=== PATIENT | female | born 1935 | race Caucasian/White ===

== ENCOUNTER 2016-12-07 14:05 | Inpatient (IN) | payer BC, OTHER ==
[~2016-12-07] VITALS: Ht 162.6 cm; Wt 85.5 kg
[2016-12-07] MEDS ORDERED: SODIUM CHLORIDE 0.9% 1000ML 1,000 ML IV STA (14:29)
[2016-12-07] MEDS ORDERED: DILTIAZEM BOLUS / DRIP IV STA (14:29)
[2016-12-07] MEDS ORDERED: DILTIAZEM HCL 5 MG/ML 5 ML VIAL IV STA ×2 (14:29→15:07)
[2016-12-07] MEDS ORDERED: DILTIAZEM HCL INJ 125 MG in DEXTROSE 5% 100ML IV PRN ×2 (14:45→19:15)
[2016-12-07 14:47] LABS: BASO % 0.4 %; BASO ABS # 0.03 K/uL (0-0.2); COMPLETE YES; EOS % 0.7 %; HEMATOCRIT 47.1 % (37-47); IG% 0.4 %; LYMPH % 21.3 %; MEAN CELL VOLUME 93.5 fL (80-100); MEAN CORPUSCULAR HEMOGLOBIN 32.3 pg (25-34); MEAN CORPUSCULAR HGB CONC 34.6 g/dl (32-36); MEAN PLATELET VOLUME 10.7 fL (7.4-10.4); MONO % 6.6 %; NEUT % 70.6 %; PLATELET COUNT 250 K/uL (130-400); RED BLOOD COUNT 5.04 M/uL (4.2-5.4); WHITE BLOOD COUNT 8.44 K/uL (4.8-10.8)
[2016-12-07 14:48] LABS: PARTIAL THROMBOPLASTIN RATIO 1.1; PROTHROMBIN TIME (PATIENT) 10.9 SECONDS (9.0-12.0)
--- NOTE | 2016-12-07 14:52 | DIAGNOSTIC IMAGING REPORT ---
CHEST ONE VIEW PORTABLE CLINICAL HISTORY: Shortness of breath, weakness and atrial fibrillation. COMPARISON STUDY: No previous studies for comparison. FINDINGS: Lung volumes are normal. There is no consolidation. Pulmonary vascularity is normal. No pneumothorax or pleural effusion is present. Cardiomediastinal silhouette is unremarkable. Left lower lung opacity favors atelectasis. IMPRESSION: No acute cardiopulmonary findings. Electronically signed by: Corky Noble M.D. 12/07/2016 2:51 PM Dictated Date/Time: 12/07/2016 2:50 PM
[2016-12-07 15:03] LABS: ALT/SGPT 23 U/L (12-78); AST/SGOT 19 U/L (15-37); BLOOD UREA NITROGEN 14 mg/dl (7-18); BUN/CREATININE RATIO 15.6 (10-20); CALCIUM 9.5 mg/dl (8.5-10.1); CARBON DIOXIDE 28 mmol/L (21-32); CHLORIDE 100 mmol/L (98-107); GLUCOSE 161 mg/dl (70-99); MAGNESIUM 2.1 mg/dl (1.8-2.4); POTASSIUM 3.5 mmol/L (3.5-5.1); SODIUM 134 mmol/L (136-145)
[2016-12-07 15:14] LABS: ALKALINE PHOSPHATASE 114 U/L (45-117); CKMB/CK RATIO 2.3 (0-3.0)
[2016-12-07] MEDS ORDERED: SIMV5TAB2 PO (15:35)
[2016-12-07] MEDS ORDERED: BP MEDS (15:35)
[2016-12-07] MEDS ORDERED: LPR100 PO (15:37)
[2016-12-07 16:09] LABS: URINE APPEARANCE CLEAR (CLEAR); URINE BILIRUBIN NEG (NEG); URINE COLOR YELLOW; URINE NITRITE NEG (NEG); URINE SPECIFIC GRAVITY 1.008 (1.000-1.030); UROBILINOGEN NEG (NEG)
[2016-12-07 16:16] LABS: MANUAL MICROSCOPIC REQUIRED? NO; REVIEW REQ? NO
--- NOTE | 2016-12-07 17:27 | EMERGENCY ROOM VISIT NOTE ---
History Report prepared by Dileep: Liliana Pritchard Under the Supervision of: Dr. Siva Moreno M.D. First contact with patient: 14:19 Chief Complaint: SHORTNESS OF BREATH Stated Complaint: SOB AFIB History of Present Illness The patient is a 81 year old female who presents to the Emergency Room with complaints of an episode of shortness of breath starting a few hours ago. 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 She notes that when she got home. A. fib with rapid ventricular response at [address] depressions and there is actually no prior for comparison, she started to feel short of breath. The patient complains of feeling fatigued, having diarrhea and having dull pain in her left arm. She states that she currently feels nervous inside. The patient denies feeling her heart flutter or any chest pain. The patient notes that she sees Dr. Cruz for one of her valves not working properly in her heart. Pt denies LOC, headache, fevers, chills, diaphoresis, visual changes, neck pain, nausea, vomiting, abdominal pain, back pain, melena, hematochezia, urinary symptoms, numbness, weakness, lymphadenopathy, rash, or other complaints. Source of History: patient Onset: a few hours ago Position: chest Timing: other (episode) Associated Symptoms: + diarrhea, + fatigue Note: The patient complains of left arm pain and feeling nervous. Review of Systems See HPI for pertinent positives and negatives. A total of ten systems were reviewed and were otherwise negative. Past Medical & Surgical Medical Problems: (1) thickened candace valve Family History No pertinent family history Social History Smoking Status: Never Smoker Marital Status: Occupation Status: retired Current/Historical Medications Scheduled Simvastatin (Zocor), 5 MG PO QPM Miscellaneous Medications [Bp Meds] Allergies Coded Allergies: NO KNOWN DRUG ALLERGIES (Verified Allergy, Unknown, `, 12/07/16) Physical Exam Vital Signs Date Time Temp Pulse Resp B/P Pulse Ox O2 Delivery O2 Flow Rate FiO2 12/07/16 16:13 115 20 153/95 96 Room Air 12/07/16 15:18 100 20 167/81 97 12/07/16 14:40 94 Room Air 12/07/16 14:40 95 Room Air 12/07/16 14:36 98 Room Air 12/07/16 14:27 180 5/14/17 14:11 36.4 169 20 131/74 96 Room Air Physical Exam GENERAL: Awake, alert, uncomfortable appearing, in no distress HENT: Normocephalic, atraumatic. Oropharynx unremarkable. EYES: Normal conjunctiva. Sclera non-icteric. NECK: Supple. No nuchal rigidity. FROM. No JVD. RESPIRATORY: Clear to auscultation. CARDIAC: irregular rate, tachycardic rhythm. Extremities warm and well perfused. Pulses equal. ABDOMEN: Soft, non-distended. Minimal upper abdominal tenderness to palpation. No rebound or guarding. No masses. RECTAL: Deferred. MUSCULOSKELETAL: Chest examination reveals no tenderness. The back is symmetrical on inspection without obvious abnormality. There is no CVA tenderness to palpation. No joint edema. LOWER EXTREMITIES: Calves are equal size bilaterally and non-tender. +1 edema. No discoloration. NEURO: Normal sensorium. No sensory or motor deficits noted. SKIN: No rash or jaundice noted. Medical Decision & Procedures ER Provider Diagnostic Interpretation: Radiology results as stated below per my review and radiologist interpretation: CHEST ONE VIEW PORTABLE CLINICAL HISTORY: Shortness of breath, weakness and atrial fibrillation. COMPARISON STUDY: No previous studies for comparison. FINDINGS: Lung volumes are normal. There is no consolidation. Pulmonary vascularity is normal. No pneumothorax or pleural effusion is present. Cardiomediastinal silhouette is unremarkable. Left lower lung opacity favors atelectasis. IMPRESSION: No acute cardiopulmonary findings. Electronically signed by: Corky Noble M.D. 12/07/2016 2:51 PM Dictated Date/Time: 12/07/2016 2:50 PM Laboratory Results 12/07/16 14:25 Red Blood Count 5.04, Mean Corpuscular Volume 93.5, Mean Corpuscular Hemoglobin 32.3, Mean Corpuscular Hemoglobin Concent 34.6, Mean Platelet Volume 10.7, Neutrophils (%) (Auto) 70.6, Lymphocytes (%) (Auto) 21.3, Monocytes (%) (Auto) 6.6, Eosinophils (%) (Auto) 0.7, Basophils (%) (Auto) 0.4, Neutrophils # (Auto) 5.96, Lymphocytes # (Auto) 1.80, Monocytes # (Auto) 0.56, Eosinophils # (Auto) 0.06, Basophils # (Auto) 0.03 12/07/16 14:25 Test 12/07/16 14:25 12/07/16 15:51 White Blood Count 8.44 K/uL (4.8-10.8) Red Blood Count 5.04 M/uL (4.2-5.4) Hemoglobin 16.3 g/dL (12.0-16.0) Hematocrit 47.1 % (37-47) Mean Corpuscular Volume 93.5 fL (80-100) Mean Corpuscular Hemoglobin 32.3 pg (25-34) Mean Corpuscular Hemoglobin Concent 34.6 g/dl (32-36) Platelet Count 250 K/uL (130-400) Mean Platelet Volume 10.7 fL (7.4-10.4) Neutrophils (%) (Auto) 70.6 % Lymphocytes (%) (Auto) 21.3 % Monocytes (%) (Auto) 6.6 % Eosinophils (%) (Auto) 0.7 % Basophils (%) (Auto) 0.4 % Neutrophils # (Auto) 5.96 K/uL (1.4-6.5) Lymphocytes # (Auto) 1.80 K/uL (1.2-3.4) Monocytes # (Auto) 0.56 K/uL (0.11-0.59) Eosinophils # (Auto) 0.06 K/uL (0-0.5) Basophils # (Auto) 0.03 K/uL (0-0.2) RDW Standard Deviation 47.6 fL (36.4-46.3) RDW Coefficient of Variation 14.0 % (11.5-14.5) Immature Granulocyte % (Auto) 0.4 % Immature Granulocyte # (Auto) 0.03 K/uL (0.00-0.02) Prothrombin Time 10.9 SECONDS (9.0-12.0) Prothromb Time International Ratio 1.0 (0.9-1.1) Activated Partial Thromboplast Time 29.2 SECONDS (21.0-31.0) Partial Thromboplastin Ratio 1.1 Anion Gap 6.0 mmol/L (3-11) Est Creatinine Clear Calc Drug Dose 54.1 ml/min Estimated GFR () 70.5 Estimated GFR (Non- 60.8 BUN/Creatinine Ratio 15.6 (10-20) Calcium Level 9.5 mg/dl (8.5-10.1) Magnesium Level 2.1 mg/dl (1.8-2.4) Total Bilirubin 0.5 mg/dl (0.2-1) Direct Bilirubin 0.1 mg/dl (0-0.2) Aspartate Amino Transf (AST/SGOT) 19 U/L (15-37) Alanine Aminotransferase (ALT/SGPT) 23 U/L (12-78) Alkaline Phosphatase 114 U/L (45-117) Total Creatine Kinase 39 U/L (26-192) Creatine Kinase MB 0.9 ng/ml (0.5-3.6) Creatine Kinase MB Ratio 2.3 (0-3.0) Troponin I < 0.015 ng/ml (0-0.045) Total Protein 7.6 gm/dl (6.4-8.2) Albumin 3.7 gm/dl (3.4-5.0) Thyroid Stimulating Hormone (TSH) 2.040 uIu/ml (0.300-4.500) Urine Color YELLOW Urine Appearance CLEAR (CLEAR) Urine pH 7.0 (4.5-7.5) Urine Specific [place] 1.008 (1.000-1.030) Urine Protein NEG (NEG) Urine Glucose (UA) NEG (NEG) Urine Ketones 1+ (NEG) Urine Occult Blood NEG (NEG) Urine Nitrite NEG (NEG) Urine Bilirubin NEG (NEG) Urine Urobilinogen NEG (NEG) Urine Leukocyte Esterase NEG (NEG) Laboratory results reviewed by me Medications Administered Medications (Trade) Dose Ordered Sig/Tasia Route Start Time Stop Time Status Last Admin Dose Admin Sodium Chloride (Nss 1000ml) 1,000 ml @ 125 mls/hr Q8H STAT IV 12/07/16 14:29 12/07/16 22:28 12/07/16 14:29 125 MLS/HR Diltiazem HCl 10 mg 10 mg NOW STAT IV 12/07/16 14:29 12/07/16 14:31 DC 12/07/16 14:47 10 MG Diltiazem HCl/ Dextrose (Cardizem Inj/D5 100ml) 125 ml @ 5 mls/hr Q24H PRN IV 12/07/16 14:45 01/06/17 14:44 12/07/16 14:50 5 MLS/HR Diltiazem HCl (Cardizem Inj) 10 mg NOW STAT IV 12/07/16 15:07 12/07/16 15:08 DC 12/07/16 15:14 10 MG ECG Indication: tachycardia Rate (beats per minute): 166 Rhythm: atrial fibrillation Findings: ST depression (Lateral), other (rapid ventricular response) Comparison ECG Date: no prior available ED Course 1425: The patient was evaluated in room A3. A complete history and physical exam was performed. 1429: Ordered Cardizem Inj 10 mg IV, Cardizem Bolus/Drip 1 ea IV, NSS 1000 ml @ 125 mls/hr. 1445: Ordered Diltiazem HCl 125 mg/Dextrose 125 ml @5 mls/hr Protocol PRN IV Titration. 1507: Ordered Cardizem Inj 10 mg IV. 1556: I reevaluated the patient and she is doing okay. I informed her of the future treatment plan. She verbalized agreement and understanding. 1558: Discussed the patient's case Dr. Andrews. The patient will be evaluated for further treatment and disposition. Medical Decision Triage Nursing notes reviewed. The patient's presentation and history were concerning for new onset atrial fibrillation. Etiologies such as cardiac dysrhythmia, ectopy,electrolyte abnormality, thyroid dysfunction, pulmonary embolism, infection, gastrointestinal, as well as others were entertained. The patient was evaluated. She was found to be in rapid atrial fibrillation. She has some lateral ST depression on ECG. Rate control was chosen with IV Cardizem. She received 10 mg bolus and then an infusion was started. This helped but then she started to get fast again. She was given a second 10 mg bolus. Blood work and imaging was sent. CBC, chemistry panel, cardiac markers were unremarkable. The patient had rate control achieved after the second dose of Cardizem and felt much better with this. Consultation was made with internal medicine. Internal medicine will dictate anticoagulation at this point. The patient had taken aspirin prior to arrival. The chart was completed utilizing [employer] voice recognition software. Grammatical errors, random word insertions, pronoun errors, and incomplete sentences are an occasional consequence of this system due to software limitations, ambient noise, and hardware issues. Any formal questions or concerns about the content, text, or information contained within the body of this dictation should be directly addressed to the physician for clarification. Consults Time Called: [id number] Consulting Physician: Dr. Andrews Returned Call: [phone] Discussed the patient's case Dr. Andrews. The patient will be evaluated for further treatment and disposition. Impression Primary Impression: Atrial fibrillation with rapid ventricular response Critical Care I have personally spent greater than 30 minutes of critical care time in the direct management of this patient. This includes bedside care, interpretation of diagnostic studies, and testing, discussion with consultants, patient, and family members, and other required patient management activities. This 30 minutes is in excess of all separately billable procedures. Scribe Attestation The scribe's documentation has been prepared under my direction and personally reviewed by me in its entirety. I confirm that the note above accurately reflects all work, treatment, procedures, and medical decision making performed by me. Departure Information Dispostion Being Evaluated By Hospitalist Berhane Lira M.D. (PCP) Patient Instructions My [facility]
[2016-12-07] MEDS ORDERED: ALUMINUM/MAGNESIUM/SIMETH (MAALOX MAX) 30 ML UDC PO PRN (17:30)
[2016-12-07] MEDS ORDERED: ONDANSETRON INJ 2 MG/ML 2 ML VIAL IV PRN (17:30)
[2016-12-07] MEDS ORDERED: POLYETHYLENE (MIRALAX) 17 GM PACK PO PRN (17:30)
[2016-12-07] MEDS ORDERED: DILTIAZEM BOLUS / DRIP IV SCH (17:30)
[2016-12-07] MEDS ORDERED: ZOLPIDEM TARTRATE 5 MG TAB PO PRN (17:30)
[2016-12-07] MEDS ORDERED: MAGNESIUM HYDROXIDE SUSP 30 ML UDC PO PRN (17:30)
[2016-12-07] MEDS ORDERED: ACETAMINOPHEN 325 MG TAB PO PRN (17:30)
--- NOTE | 2016-12-07 18:52 | HISTORY & PHYSICAL EXAMINATION ---
DATE OF ADMISSION: 12/07/2016 This is a level 3 inpatient admission, 35 minutes. CHIEF COMPLAINT: Shortness of breath. HISTORY OF PRESENT ILLNESS: A 81-year-old white female with history of asthma, thickened mitral valve, comes to the hospital Emergency Department because of the above chief complaint. The patient reports has a feeling shortness of breath started a few hours ago. She states she went to the [place]lam and was doing fine and then she went home from the islam, she noticed more shortness of breath. In the Emergency Room, patient was found to have aFib with rapid ventricular response, heart rate up to 166 beats per minutes, associated with lateral leads ST depressions in the Emergency Room documented. The patient also reported feeling fatigue, have some diarrhea, not eating well, had some bowel pain in the left arm. She was feeling nervous when arriving to the Emergency Room. After arriving to the ED, the patient got a 10 mg Cardizem bolus x2 sets and then started 5 mg IV of Cardizem drip, 5 mg per hour Cardizem drips. When I interviewed with the patient, she was awake, alert and orientated, heart rate at 90, heart rate is controlled, looks tired but conversational. Denied fever or chills. Denied chest pain, palpitations. Denied lower extremity swelling. Denied cough, sputum; shortness of breath is better. No wheezing. No nausea, vomiting, abdominal pain, diarrhea, or constipation. Denied dysuria, urgency and frequencies. Denied facial droop, slurry speeches or weakness. Denies skin rashes. PAST MEDICAL HISTORY: Include asthma; thickened mitral valve, follows up with Dr. Cruz. SOCIAL HISTORY: Denied tobacco abuse disorder, denied alcohol abuse disorder, denied illicit drug abuse. FAMILY HISTORY: Noncontributory. CURRENT MEDICATIONS: Include Zocor 5 mg p.o. q.a.m. Some other medicines possibly include blood pressure medicine. ALLERGIES: No known drug allergies. PHYSICAL EXAMINATION: VITAL SIGNS: Temperature is 36.4; pulse initially was 160 and currently is 80, respiratory rate was 20, blood pressure was 131/74, pulse ox was 96% in room air. GENERAL: The patient is a white female, awake, alert and orientated, conversational, follows all commands. HEAD: Normocephalic. EYES: Pupils equal, round responds to light. EARS: Ear was normal. NOSE: Normal. NECK: Supple. Thyroid - no enlargement. Trachea midline. HEART: irregular irregular S1, S2. Heart rate is 80 beats per minutes now. No murmur, no gallop. ABDOMEN: Soft, nontender. Bowel sounds positive. GENITOURINARY AND RECTAL: Deferred. MUSCULOSKELETAL SYSTEMS: No any tenderness. EXTREMITIES: Pulse was symmetric and positive. No edema. NEUROLOGICAL EVALUATION: Cranial nerve through XII was intact. There were no local deficits. SKIN: Has no rashes. LABORATORY STUDIES: WBC 8.8, hemoglobin 16, platelets 250. PT/INR 10/1. Sodium 134, potassium 3.5, BUN 14, creatinine 0.9. Liver function test was within normal limits. TSH was normal. UA was negative. IMAGING STUDIES: Chest x-ray was done today - no acute cardiopulmonary findings. EKG was done which shows aFib with rapid ventricular response, there were some ST depressions in lateral leads. ASSESSMENT AND PLAN: A 81-year-old white female with conditions below: 1. Atrial fibrillation with rapid ventricular response which is new onset. The patient reported history of asthma, possibly the asthma was because of atrial fibrillation, according to her feelings. 2. Dyslipidemia, on statin. 3. Mitral valve thickening, follow up with Dr. Cruz PLAN: Will be for admission, continue Cardizem drip, to the PCU. The patient reported me she has echocardiogram done recently with Dr. Cruz , but I did not see the report and will have Dr. Cruz consultation and then will move forward. For the stroke prevention. For now, the patient is rate controlled. I will not start any anticoagulation for stroke prevention for now. I will re - evaluation, after all testing results come back, such as CHADs2 score , and will discussed with cardiology, possible can decide what anticoagulant can be started for the stroke prevention. However, I will start aspirin for sure for now. There was no report of chest pain. Will continue to check cardiac enzymes, troponin x1 set more and then will go from there. Will check a fasting lipid panel as well. When the patient arrived into the Emergency Room, she was complaining about mild left arm tenderness. GI and DVT prophylaxis is covered. [facility]
[2016-12-07 18:55] VITALS: BP 137/70; PULSE 74; TEMP 36.5; O2SAT 99; Ht 162.6 cm; Wt 85.5 kg
[2016-12-07] MEDS ORDERED: ASPIRIN 81 MG CHEW PO STA (20:49)
[2016-12-07] MEDS ORDERED: HEPARIN SOD 5000 UNIT/0.5 ML CARP SQ SCH (21:00)
[2016-12-07] MEDS ORDERED: HEPARIN IV LOW DOSE NO BOLUS SCH (21:00)
[2016-12-07] MEDS ORDERED: PANTOprazole SOD 40 MG TAB PO STA (21:06)
--- NOTE | 2016-12-07 21:19 | Progress Note ---
Progress Note Date of Service December 07, 2016. Progress Note Called by RN as patient troponin bumped to 0.155. Noted initial EKG with ST depressions in the lateral leads but in the context of tachycardia (atrial fibrillation with RVR). Patient seen and no longer having any shortness of breath or chest pain. Discussed with her that her cardiac enzyme came back raised but it is difficult to know whether this is due to rapid rate or CA causing episode of A fib; I suspect it is the former. I have ordered a repeat EKG to determine if ST depressions are still present in current sinus rhythm. Nevertheless I will treat as NSTEMI overnight; top up her aspirin and start heparin drip. She does note she has tinnitus with taking aspirin but this has been longstanding and I am unsure this is actually related to aspirin as she never comes off of it and therefore her tinnitus is unchanging. Given this is longstanding it is unlikely salicylate toxicity and the benefits of a one off dose of 243 mg outweighs the risk. She also notes the aspirin "upsets her stomach" and she has longstanding epigastric pain for which she takes Maalox intermittently. She denies any previous GI bleed. On examination she currently has mild epigastric pain on palpation without guarding or rebound. Therefore will also give a dose of Protonix and hand over to the day team to decide whether to continue this. Plan - 234 mg ASA (already taken 81mg today) - heparin low dose protocol - Protonix 40 mg PO NOW - HbA1C added to labs in morning given random glucose of 160 - Troponin added to morning labs
[2016-12-07] MEDS: HEPARIN 25,000 UNIT/500ML D5W 500 ML IV PRN (21:23)
[2016-12-07] MEDS: SIMVASTATIN 5 MG TAB PO SCH (21:24)
[2016-12-07 23:04] VITALS: BP 136/73; PULSE 71; TEMP 36.7; O2SAT 95
[2016-12-08] VITALS (7 sets, daily range): BP systolic 132–180; BP diastolic 71–96; PULSE 63–91; TEMP 36.6–36.9; O2SAT 94–98
[2016-12-08 04:48] LABS: CHOLESTEROL/HDL RATIO 1.8; PHOSPHORUS 3.6 mg/dl (2.5-4.9)
[2016-12-08 04:50] LABS: PARTIAL THROMBOPLASTIN RATIO 1.8
[2016-12-08] MEDS ORDERED: HEPARIN IV BOLUS 3,000 UNIT in SYRINGE 0 ML IV ONE (05:15)
[2016-12-08] MEDS: HEPARIN 25,000 UNIT/500ML D5W 500 ML IV PRN (05:32)
[2016-12-08 06:30] LABS: ESTIMATED AVERAGE GLUCOSE 123 mg/dl; HA1C FLAG Normal (Normal)
[2016-12-08] MEDS: PANTOprazole SOD 40 MG TAB PO SCH (07:55)
[2016-12-08] MEDS: ASPIRIN 81 MG ECTAB PO SCH (07:55)
--- NOTE | 2016-12-08 10:55 | Cardiology Consultation ---
Cardiology Consultation Date of Consultation: December 08, 2016. Requesting Physician: Dr. Andrews Attending Physician: Dr. Dior Reason for Consultation: Atrial fibrillation Pt evaluation today including: conversation w/ family, physical exam, chart review, lab review, review of studies, review of inpatient medication list History of Present Illness Mrs. Pham is a very pleasant 81-year-old female with a history of aortic stenosis, and hypertension known to me from the outpatient setting was admitted yesterday in the setting of new onset atrial fibrillation with rapid ventricular response. Patient has been known to have severe aortic stenosis since February of 2016 and has been followed with periodic surveillance echocardiograms, most recently 1 month ago. she has been very reluctant to consider surgical AVR in the past and her last visit as she was largely asymptomatic surgical referral was deferred. Since that time she reports worsening shortness of breath with exertion, such as trying to plan things in her garden. Denies any heart failure symptoms. Yesterday after returning [facility] patient reports acute onset of shortness of breath chest tightness radiating to her left arm. Symptoms persisted for approximately an hour before she presented to the emergency department. Upon arrival she was tachycardic to the 160s and received IV diltiazem with conversion to sinus rhythm. She has remained in sinus rhythm since admission to the floor on a diltiazem drip. Shortness of breath has resolved. Does endorse some minimal residual chest tightness. Troponin was noted to be minimally elevated overnight and was started on heparin infusion. Prior cardiovascular studies: Echo (10/2016): Normal LV size, mild LVH LVEF 65-70 percent, normal RV size and function. Severe aortic stenosis (peak velocity 4.2, mean gradient 42, aortic valve area 0.8) trace AI Echo (2015): Normal LV size, normal LV function, EF 60-65 percent, mild LVH , severe aortic stenosis (peak velocity 4.1 meters/seconds, mean gradient 33, aortic valve area 0.7 centimeter squared) Carotid duplex (01/2014): Negative for significant stenosis or atherosclerotic disease. Past Medical/Surgical History Severe aortic stenosis, hypertension, hyperlipidemia, osteoporosis, carotid artery stenosis, pre diabetes, herpes zoster, osteoarthritis Family History No pertinent family history No history of premature coronary artery disease or sudden cardiac Social History Smoking Status: Never Smoker History of Alcohol Use: No Review of Systems 10 point review of systems was completed and was otherwise negative unless stated in HPI All Other Systems: Reviewed and Negative Allergies Coded Allergies: NO KNOWN DRUG ALLERGIES (Verified Allergy, Unknown, `, 12/07/16) Medications Current Inpatient Medications Medications (Trade) Dose Ordered Sig/Tasia Route Start Time Stop Time Status Last Admin Dose Admin Acetaminophen (Tylenol Tab) 650 mg Q4H PRN PO 12/07/16 17:30 01/06/17 17:29 Al Hydrox/Mg Hydrox/Simethicone (Maalox Max Susp) 15 ml Q4H PRN PO 12/07/16 17:30 01/06/17 17:29 Magnesium Hydroxide (Milk Of Magnesia Susp) 30 ml Q12H PRN PO 12/07/16 17:30 01/06/17 17:29 Zolpidem Tartrate (Ambien Tab) 5 mg HSZ PRN PO 12/07/16 17:30 01/06/17 17:29 Ondansetron HCl (Zofran Inj) 4 mg Q6H PRN IV 12/07/16 17:30 01/06/17 17:29 Polyethylene (Miralax Powder Packet) 17 gm DAILY PRN PO 12/07/16 17:30 01/06/17 17:29 Simvastatin (Zocor Tab) 5 mg QPM PO 12/07/16 21:00 01/06/17 20:59 12/07/16 21:24 5 MG Aspirin 81 mg 81 mg QAM PO 12/08/16 09:00 01/07/17 08:59 12/08/16 07:55 81 MG Diltiazem HCl/ Dextrose (Cardizem Inj/D5 100ml) 125 ml @ 5 mls/hr Q24H PRN IV 12/07/16 19:15 01/06/17 19:14 Pantoprazole Sodium 40 mg 40 mg QAM PO 12/08/16 09:00 01/07/17 08:59 12/08/16 07:55 40 MG Heparin Sodium/ Dextrose (Heparin 25,000 Unit/500ml D5W) 500 ml @ 17 mls/hr Q24H PRN IV 12/07/16 21:15 01/06/17 21:14 12/08/16 05:32 17 MLS/HR Physical Exam Vital Signs Past 12 Hours Date Time Temp Pulse Resp B/P Pulse Ox O2 Delivery O2 Flow Rate FiO2 12/08/16 08:00 Room Air 12/08/16 07:47 36.7 71 16 132/81 98 Room Air 12/08/16 04:00 Room Air 12/08/16 03:58 36.6 63 18 137/71 96 Room Air 12/07/16 23:59 Room Air 12/07/16 23:04 36.7 71 18 136/73 95 Room Air General: Comfortable, no acute distress Eyes: Sclerae anicteric, extraocular movements intact HENT: Oropharynx clear mucous membranes moist Neck: Supple, no lymphadenopathy, no thyromegaly. Lungs: Clear to auscultation bilaterally, no rhonchi or wheezes Cardiac: Regular rate and rhythm, 3/6 systolic ejection murmur heard best at the right upper sternal border, rubs or gallops. No JVD. Trace peripheral edema. Extremities well perfused. Vascular: Normal carotid upstrokes, no bruits. 2+ radial, femoral, DP and PT pulses. No varicosities. Abdomen: Soft, nontender, nondistended positive bowel sounds. No hepatosplenomegaly Musculoskeletal: No joint deformities Skin: No rashes or lesions. Neuro: Cranial nerves 2-12 grossly intact, remainder exam nonfocal Psych: Alert orient x3, normal affect and mood Data Laboratory Results: Last 24 Hours Test 12/07/16 14:25 12/07/16 15:51 12/07/16 17:29 12/07/16 18:01 White Blood Count 8.44 K/uL Red Blood Count 5.04 M/uL Hemoglobin 16.3 g/dL Hematocrit 47.1 % Mean Corpuscular Volume 93.5 fL Mean Corpuscular Hemoglobin 32.3 pg Mean Corpuscular Hemoglobin Concent 34.6 g/dl Platelet Count 250 K/uL Mean Platelet Volume 10.7 fL Neutrophils (%) (Auto) 70.6 % Lymphocytes (%) (Auto) 21.3 % Monocytes (%) (Auto) 6.6 % Eosinophils (%) (Auto) 0.7 % Basophils (%) (Auto) 0.4 % Neutrophils # (Auto) 5.96 K/uL Lymphocytes # (Auto) 1.80 K/uL Monocytes # (Auto) 0.56 K/uL Eosinophils # (Auto) 0.06 K/uL Basophils # (Auto) 0.03 K/uL RDW Standard Deviation 47.6 fL RDW Coefficient of Variation 14.0 % Immature Granulocyte % (Auto) 0.4 % Immature Granulocyte # (Auto) 0.03 K/uL Prothrombin Time 10.9 SECONDS Prothromb Time International Ratio 1.0 Activated Partial Thromboplast Time 29.2 SECONDS Partial Thromboplastin Ratio 1.1 Sodium Level 134 mmol/L Potassium Level 3.5 mmol/L Chloride Level 100 mmol/L Carbon Dioxide Level 28 mmol/L Anion Gap 6.0 mmol/L Blood Urea Nitrogen 14 mg/dl Creatinine 0.90 mg/dl Est Creatinine Clear Calc Drug Dose 54.1 ml/min Estimated GFR () 70.5 Estimated GFR (Non- 60.8 BUN/Creatinine Ratio 15.6 Random Glucose 161 mg/dl Calcium Level 9.5 mg/dl Magnesium Level 2.1 mg/dl Total Bilirubin 0.5 mg/dl Direct Bilirubin 0.1 mg/dl Aspartate Amino Transf (AST/SGOT) 19 U/L Alanine Aminotransferase (ALT/SGPT) 23 U/L Alkaline Phosphatase 114 U/L Total Creatine Kinase 39 U/L Creatine Kinase MB 0.9 ng/ml 2.5 ng/ml Creatine Kinase MB Ratio 2.3 Troponin I < 0.015 ng/ml 0.155 ng/ml Total Protein 7.6 gm/dl Albumin 3.7 gm/dl Thyroid Stimulating Hormone (TSH) 2.040 uIu/ml Urine Color YELLOW Urine Appearance CLEAR Urine pH 7.0 Urine Specific [place] 1.008 Urine Protein NEG Urine Glucose (UA) NEG Urine Ketones 1+ Urine Occult Blood NEG Urine Nitrite NEG Urine Bilirubin NEG Urine Urobilinogen NEG Urine Leukocyte Esterase NEG Test 12/08/16 03:55 12/08/16 10:00 Activated Partial Thromboplast Time 46.1 SECONDS Partial Thromboplastin Ratio 1.8 Estimated Average Glucose 123 mg/dl Hemoglobin A1c 5.9 % Phosphorus Level 3.6 mg/dl Magnesium Level 2.0 mg/dl Total Bilirubin 0.5 mg/dl Direct Bilirubin 0.2 mg/dl Aspartate Amino Transf (AST/SGOT) 15 U/L Alanine Aminotransferase (ALT/SGPT) 16 U/L Alkaline Phosphatase 83 U/L Troponin I 0.345 ng/ml Total Protein 6.1 gm/dl Albumin 3.1 gm/dl Triglycerides Level 56 mg/dl Cholesterol Level 143 mg/dl HDL Cholesterol 78 mg/dl LDL Cholesterol, Calculated 54 mg/dl VLDL Cholesterol, Calculated 11 mg/dl Cholesterol/HDL Ratio 1.8 Imaging: Chest x-ray--no acute cardiopulmonary process EKG: EKG (2099) sinus rhythm, occasional PVC, questionable inferior infarct EKG (1399) atrial fibrillation, ventricular rate 166, ST depressions in lateral leads EKG (12/08, 0600) sinus rhythm, left axis deviation, possible inferior infarct Telemetry reviewed: No further atrial fibrillation. Sinus rhythm Assessment & Plan 1. Atrial fibrillation with RVR--converted to sinus rhythm, on diltiazem infusion 2. Severe aortic stenosis 3. Mildly elevated troponin 4. Hypertension Patient with episode of new onset atrial fibrillation with RVR which converted with IV diltiazem. No clear new precipitants. Has remained in normal sinus rhythm since initiation of diltiazem infusion. With age and history of hypertension would favor long-term anticoagulation following completion acute heparin infusion. Suspect patient's mild troponin elevation is secondary to demand ischemia in the setting rapid ventricular response with severe aortic stenosis. Overall patient has severe aortic stenosis with what sounds to be new symptoms over the last month. After discussions with her family she is now willing to consider surgical AVR. In preparation will plan for cardiac catheterization tomorrow. Assuming no signs acute coronary artery disease on cath will plan for outpatient CT surgical referral. Recommendations: -- continue to trend troponins -- continue heparin infusion overnight -- can transition to PO diltiazem -- continue ASA, start statin -- NPO overnight for cardiac cath in AM>
[2016-12-08 11:32] LABS: PARTIAL THROMBOPLASTIN RATIO 3.1
--- NOTE | 2016-12-08 13:34 | Family Medicine Progress Note ---
Progress Note Date of Service December 08, 2016. Subjective Pt evaluation today including: conversation w/ patient, conversation w/ family , physical exam, chart review, lab review Pain: 0/10 PO Intake: WNL Voiding: no voiding problems Patient states that she has not had any worsening SOB/ chest pain since her episode last night She denies any palpitations or presyncope We did discuss the plan and she understands the importance of anticoagulation. She repeated the risks and benefits and reflected understanding. Plan is for a cardiac cath tomorrow Constitutional: No fever Eyes: No worsening of vision ENT: No hearing loss Respiratory: No cough, No dyspnea on exertion, No shortness of breath, No sputum, No wheezing Cardiovascular: No chest pain Abdomen: No constipation, No diarrhea, No nausea, No pain, No vomiting Musculoskeletal: No joint pain, No muscle pain Neurologic: No balance problems, No weakness Psychiatric: No depression symptoms Heme: No abnormal bleeding/bruising Endo: + fatigue Skin: No rash Medications Medications Administered Medications (Trade) Dose Ordered Sig/Tasia Route Start Time Stop Time Status Last Admin Dose Admin Sodium Chloride (Nss 1000ml) 1,000 ml @ 125 mls/hr Q8H STAT IV 12/07/16 14:29 12/07/16 19:17 DC 12/07/16 14:29 125 MLS/HR Diltiazem HCl 10 mg 10 mg NOW STAT IV 12/07/16 14:29 12/07/16 14:31 DC 12/07/16 14:47 10 MG Diltiazem HCl/ Dextrose (Cardizem Inj/D5 100ml) 125 ml @ 5 mls/hr Q24H PRN IV 12/07/16 14:45 12/07/16 19:14 DC 12/07/16 14:50 5 MLS/HR Diltiazem HCl (Cardizem Inj) 10 mg NOW STAT IV 12/07/16 15:07 12/07/16 15:08 DC 12/07/16 15:14 10 MG Simvastatin (Zocor Tab) 5 mg QPM PO 12/07/16 21:00 01/06/17 20:59 12/07/16 21:24 5 MG Aspirin (Ecotrin Tab) 81 mg QAM PO 12/08/16 09:00 01/07/17 08:59 12/08/16 07:55 81 MG Aspirin (Aspirin Chew) 324 mg NOW STAT PO 12/07/16 20:49 12/07/16 20:53 DC 12/07/16 21:01 243 MG Pantoprazole Sodium (Protonix Tab) 40 mg QAM PO 12/08/16 09:00 01/07/17 08:59 12/08/16 07:55 40 MG Pantoprazole Sodium 40 mg 40 mg NOW STAT PO 12/07/16 21:06 12/07/16 21:10 DC 12/07/16 21:24 40 MG Heparin Sodium/ Dextrose 500 ml @ 14 mls/hr Q24H PRN IV 12/07/16 21:15 01/06/17 21:14 12/08/16 05:32 17 MLS/HR Heparin Sodium (Porcine)/Syringe (Heparin Iv Bolus/Syringe) 3 ml @ 10 mls/min TODAY@0515 ONCE IV 12/08/16 05:15 12/08/16 05:16 DC 12/08/16 05:32 10 MLS/MIN Objective Vital Signs Date Time Temp Pulse Resp B/P Pulse Ox O2 Delivery O2 Flow Rate FiO2 12/08/16 12:00 Room Air 12/08/16 11:58 36.9 81 16 141/83 94 Room Air 12/08/16 08:00 Room Air 12/08/16 07:47 36.7 71 16 132/81 98 Room Air 12/08/16 04:00 Room Air 12/08/16 03:58 36.6 63 18 137/71 96 Room Air 12/07/16 23:59 Room Air 12/07/16 23:04 36.7 71 18 136/73 95 Room Air 12/07/16 20:00 Room Air 12/07/16 18:55 36.5 74 20 137/70 99 Room Air 12/07/16 18:05 72 25 96 12/07/16 17:47 77 20 147/78 97 Room Air 12/07/16 17:35 77 20 98 12/07/16 17:31 147/78 12/07/16 17:05 82 20 96 12/07/16 17:01 147/73 12/07/16 16:35 132 16 98 12/07/16 16:30 112/79 12/07/16 16:13 115 20 153/95 96 Room Air 12/07/16 16:05 94 16 97 12/07/16 16:01 153/95 12/07/16 15:35 95 37 98 12/07/16 15:31 130/70 12/07/16 15:18 100 20 167/81 97 12/07/16 15:16 167/81 12/07/16 15:05 151 21 94 12/07/16 14:59 137/84 12/07/16 14:40 94 Room Air 12/07/16 14:40 95 Room Air 12/07/16 14:36 98 Room Air 12/07/16 14:27 180 12/07/16 14:22 152/97 12/07/16 14:11 36.4 169 20 131/74 96 Room Air Physical Exam General Appearance: WD/WN, no apparent distress Eyes: normal inspection ENT: normal ENT inspection Neck: supple Respiratory/Chest: normal breath sounds, no respiratory distress, no accessory muscle use, + decreased breath sounds (bilat bases) Cardiovascular: regular rate, rhythm, + systolic murmur (3/6 and radiates to bilat carotids) Abdomen: normal bowel sounds, non tender, soft Extremities: normal range of motion, non-tender, normal inspection, + pedal edema (trace) Neurologic/Psychiatric: alert, normal mood/affect, oriented x 3 Skin: normal color, warm/dry, no rash Lymphatic: no adenopathy Laboratory Results Results Past 24 Hours Test 12/07/16 14:25 12/07/16 15:51 12/07/16 17:29 12/07/16 18:01 Range/Units White Blood Count 8.44 4.8-10.8 K/uL Red Blood Count 5.04 4.2-5.4 M/uL Hemoglobin 16.3 12.0-16.0 g/dL Hematocrit 47.1 37-47 % Mean Corpuscular Volume 93.5 80-100 fL Mean Corpuscular Hemoglobin 32.3 25-34 pg Mean Corpuscular Hemoglobin Concent 34.6 32-36 g/dl Platelet Count 250 130-400 K/uL Mean Platelet Volume 10.7 7.4-10.4 fL Neutrophils (%) (Auto) 70.6 % Lymphocytes (%) (Auto) 21.3 % Monocytes (%) (Auto) 6.6 % Eosinophils (%) (Auto) 0.7 % Basophils (%) (Auto) 0.4 % Neutrophils # (Auto) 5.96 1.4-6.5 K/uL Lymphocytes # (Auto) 1.80 1.2-3.4 K/uL Monocytes # (Auto) 0.56 0.11-0.59 K/uL Eosinophils # (Auto) 0.06 0-0.5 K/uL Basophils # (Auto) 0.03 0-0.2 K/uL RDW Standard Deviation 47.6 36.4-46.3 fL RDW Coefficient of Variation 14.0 11.5-14.5 % Immature Granulocyte % (Auto) 0.4 % Immature Granulocyte # (Auto) 0.03 0.00-0.02 K/uL Prothrombin Time 10.9 9.0-12.0 SECONDS Prothromb Time International Ratio 1.0 0.9-1.1 Activated Partial Thromboplast Time 29.2 21.0-31.0 SECONDS Partial Thromboplastin Ratio 1.1 Sodium Level 134 136-145 mmol/L Potassium Level 3.5 3.5-5.1 mmol/L Chloride Level 100 98-107 mmol/L Carbon Dioxide Level 28 21-32 mmol/L Anion Gap 6.0 3-11 mmol/L Blood Urea Nitrogen 14 7-18 mg/dl Creatinine 0.90 0.60-1.20 mg/dl Est Creatinine Clear Calc Drug Dose 54.1 ml/min Estimated GFR () 70.5 Estimated GFR (Non- 60.8 BUN/Creatinine Ratio 15.6 10-20 Random Glucose 161 70-99 mg/dl Calcium Level 9.5 8.5-10.1 mg/dl Magnesium Level 2.1 1.8-2.4 mg/dl Total Bilirubin 0.5 0.2-1 mg/dl Direct Bilirubin 0.1 0-0.2 mg/dl Aspartate Amino Transf (AST/SGOT) 19 15-37 U/L Alanine Aminotransferase (ALT/SGPT) 23 12-78 U/L Alkaline Phosphatase 114 45-117 U/L Total Creatine Kinase 39 26-192 U/L Creatine Kinase MB 0.9 2.5 0.5-3.6 ng/ml Creatine Kinase MB Ratio 2.3 0-3.0 Troponin I < 0.015 0.155 0-0.045 ng/ml Total Protein 7.6 6.4-8.2 gm/dl Albumin 3.7 3.4-5.0 gm/dl Thyroid Stimulating Hormone (TSH) 2.040 0.300-4.500 uIu/ml Urine Color YELLOW Urine Appearance CLEAR CLEAR Urine pH 7.0 4.5-7.5 Urine Specific [place] 1.008 1.000-1.030 Urine Protein NEG NEG Urine Glucose (UA) NEG NEG Urine Ketones 1+ NEG Urine Occult Blood NEG NEG Urine Nitrite NEG NEG Urine Bilirubin NEG NEG Urine Urobilinogen NEG NEG Urine Leukocyte Esterase NEG NEG Test 12/08/16 03:55 12/08/16 11:05 Range/Units Activated Partial Thromboplast Time 46.1 80.1 21.0-31.0 SECONDS Partial Thromboplastin Ratio 1.8 3.1 Estimated Average Glucose 123 mg/dl Hemoglobin A1c 5.9 4.5-5.6 % Phosphorus Level 3.6 2.5-4.9 mg/dl Magnesium Level 2.0 1.8-2.4 mg/dl Total Bilirubin 0.5 0.2-1 mg/dl Direct Bilirubin 0.2 0-0.2 mg/dl Aspartate Amino Transf (AST/SGOT) 15 15-37 U/L Alanine Aminotransferase (ALT/SGPT) 16 12-78 U/L Alkaline Phosphatase 83 45-117 U/L Troponin I 0.345 0.224 0-0.045 ng/ml Total Protein 6.1 6.4-8.2 gm/dl Albumin 3.1 3.4-5.0 gm/dl Triglycerides Level 56 0-150 mg/dl Cholesterol Level 143 0-200 mg/dl HDL Cholesterol 78 mg/dl LDL Cholesterol, Calculated 54 mg/dl VLDL Cholesterol, Calculated 11 mg/dl Cholesterol/HDL Ratio 1.8 Assessment and Plan This is a 81 yo f with known aortic stenosis that initially presented to the ED with chest pain and shortness of breath. She was found to have A fibb with RVR and some ST depression in lateral leads. Her heart rate was controlled using Diltiazem and she remained on a drip overnight. She converted to NSR. Her troponin was also trended and peaked at 0.3. Since there was ST depression previously and there was concern for NSTEMI she was started on a heparin drip and she received ASA. As it peaked at 0.3 this most likely reflects demand ischemia. She was also seen by cardiology and after discussing her aortic stenosis and degrading exercise capacity it was decided that she would undergo a cardiac cath in preparation for a potential valvuloplasty. A fib with RVR ; new onset ; CHADSVASC 3 - Patient will be converted from IV diltiazem to oral Metoprolol - patient is not on any chronic asthma medications and risk vs benefits as well as importance to contact provider if patient develops wheezing - appreciate cardiology consultation - plan is to d/c on a NOAC - had extensive discussion regarding risk vs benefit and patient reflected understanding and would like to go forward with anticoagulation - echo - most recent 10/2016 - nm LV/RV - EF 65-70% - severe severe Aortic stenosis - Echo as noted above - plan per Dr Cruz is a cardiac cath in am in anticipation of valvuloplasty - anticipate d/c after cath Elevated troponin - demand ischemia - troponin followed to peak - echo Dyslipidemia - continue simvastatin Dispo: PT/oT Resident Physician Supervision Note: I interviewed and examined the patient. Discussed with Dr. Heller and agree with findings and plan as documented in the note. Any exceptions or clarifications are listed here: None Documented By: Jamar Dior feeling better. does have CALDERON worse than before with gardening. no current chest pain ros otherwise negative except for as above vitals noted nad breathing unlabored no pallor or icterus new afib / RVR - now rate controlled -as above convert from IV dilt to PO metoprolol (benefits outweigh risks) CALDERON - related vs occult CAD vs both - LH to discern as well as for preop eval for severe - LHC as above DVT proph - anticoagulation for afib (will be held for [facility]) otherwise as above Continued [facility] stay due to: other Discharge planning: uncertain
[2016-12-08] MEDS ORDERED: PERFLUTREN LIPID MICROSPHERE (DEFINITY) IV ONE (15:07)
--- NOTE | 2016-12-08 16:35 | ECHOCARDIOGRAM REPORT ---
*NOTICE TO RECEIVING [facility] This information is strictly Confidential and protected under [place] law. [place] law prohibits you from making any further disclosure of this information unless further disclosure is expressly permitted by the written consent of the person to whom it pertains or is authorized by law. A general authorization for the release of medical or other information is not sufficient for this purpose. Hospital accepts no responsibility if the information is made available to any other person, INCLUDING THE PATIENT. Interpretation Summary * Name: JAMES RIVERA Study Date: 12/08/2016 02:37 PM BP: 141/83 mmHg * Patient Location: C.2T\S\S244\S\1 HR: 81 * : 1935 (M/d/yyyy) Gender: Female Height: 64 in * Age: 81 yrs Ethnicity: CA Weight: 191 lb * Ordering Physician: Sol Heller * Performed By: Melissa Umaña * * Reason For Study: A-FIB * BSA: 1.9 m2 * -- Conclusions -- * 1. Normal left ventricular size with hyperdynamic systolic function. EF > 70%. No regional wall motion abnormalities. No significant left ventricular hypertrophy. Type 1 diastolic dysfunction. * 2. Moderate to severe aortic stenosis with trace regurgitation. * 3. Severe atherosclerosis of thoracic aorta, with possible atheroma. * 4. Compared to prior study on 01/12/2012, aortic valve velocity and gradients are now higher. Procedure Details * A complete two-dimensional transthoracic echocardiogram was performed (2D, M-mode, Doppler and color flow Doppler). * The study was technically difficult. * There were technical limitations due to patient'sbody habitus * A contrast injection of Definity was performed to improve assessment of LV function. * Contrast was injected into an intravenous site in the right arm. * One vial of Definity ultrasound contrast was diluted in normal saline to a total volume of 10 ml. A total of '2' ml of solution was administered during imaging. * Lot # [id number] of Definity utilized for procedure. * Expiration date 11/11. * The attending nurse who injected the contrast agent was MELISSA YOUSSEF RN. Left Ventricle * Normal left ventricular size with hyperdynamic systolic function. EF > 70%. No regional wall motion abnormalities. No significant left ventricular hypertrophy. Type 1 diastolic dysfunction. Right Ventricle * The right ventricle is not well visualized. * The right ventricle is grossly normal size. Atria * The left atrial size is normal. * Right atrial size is normal. * There is no evidence of atrial septal defect, but resolution does not allow assessment for a patent foramen ovale. Mitral Valve * The mitral valve is grossly normal. * There is no mitral valve stenosis. * Significant mitral regurgitation is absent. Tricuspid Valve * The tricuspid valve is not well visualized. * There is no tricuspid stenosis. * There is trace tricuspid regurgitation. Aortic Valve * Dimensionless index 0.26. * Moderate to severe valvular aortic stenosis. * Trace aortic regurgitation. Pulmonic Valve * The pulmonary valve is inadequately visualized, but the Doppler data is adequate for interpretation. * There is no pulmonic valvular stenosis. * There is no significant pulmonary regurgitation. Great Vessels * Severe atherosclerosis of thoracic aorta, with possible atheroma. * The aortic root is normal size. Pericardium/Pleural * There is no pericardial effusion. Great Vessels * Normal inferior vena cava size and collapsability with sniff indicates a normal right atrial pressure of 3 mmHg MMode 2D Measurements and Calculations IVSd 1.0 cm IVSs 1.8 cm LVIDd 3.5 cm LVIDs 1.8 cm LVPWd 0.82 cm LVPWs 1.5 cm IVS/LVPW 1.2 FS 48.8 % EDV(Teich) 49.8 ml ESV(Teich) 9.4 ml EF(Teich) 81.2 % EDV(cubed) 41.7 ml ESV(cubed) 5.6 ml EF(cubed) 86.6 % % IVS thick 78.9 % % LVPW thick 88.8 % LV mass(C)d 89.7 grams LV mass(C)dI 46.8 grams/m\S\2 LV mass(C)s 108.4 grams LV mass(C)sI 56.5 grams/m\S\2 CO(Teich) 3.3 l/min CI(Teich) 1.7 l/min/m\S\2 SV(Teich) 40.4 ml SI(Teich) 21.1 ml/m\S\2 CO(cubed) 2.9 l/min CI(cubed) 1.5 l/min/m\S\2 SV(cubed) 36.1 ml SI(cubed) 18.8 ml/m\S\2 Ao root diam 2.9 cm Ao root area 6.7 cm\S\2 ACS 0.65 cm asc Aorta Diam 3.1 cm LVOT diam 2.2 cm LVOT area 3.7 cm\S\2 LVAd ap4 27.7 cm\S\2 LVLd ap4 7.7 cm EDV(MOD-sp4) 80.1 ml EDV(sp4-el) 71.1 ml LVAs ap4 11.7 cm\S\2 LVLs ap4 6.0 cm ESV(MOD-sp4) 19.3 ml ESV(sp4-el) 22.1 ml EF(MOD-sp4) 75.9 % EF(sp4-el) 68.9 % LVAd ap2 30.9 cm\S\2 LVLd ap2 7.8 cm EDV(MOD-sp2) 98.8 ml LVAs ap2 13.3 cm\S\2 LVLs ap2 6.3 cm ESV(MOD-sp2) 23.4 ml EF(MOD-sp2) 76.3 % CO(MOD-sp4) 4.9 l/min CI(MOD-sp4) 2.6 l/min/m\S\2 SV(MOD-sp4) 60.8 ml SI(MOD-sp4) 31.7 ml/m\S\2 CO(MOD-sp2) 6.1 l/min CI(MOD-sp2) 3.2 l/min/m\S\2 SV(MOD-sp2) 75.4 ml SI(MOD-sp2) 39.3 ml/m\S\2 CO(sp4-el) 4.0 l/min CI(sp4-el) 2.1 l/min/m\S\2 SV(sp4-el) 49.0 ml SI(sp4-el) 25.5 ml/m\S\2 Doppler Measurements and Calculations MV E max sonny 66.5 cm/sec MV A max sonny 90.7 cm/sec MV E/A 0.73 MV dec time 0.26 sec Ao V2 max 373.7 cm/sec Ao max PG 55.9 mmHg Ao max PG (full) 52.1 mmHg Ao V2 mean 281.9 cm/sec Ao mean PG 33.9 mmHg Ao mean PG (full) 31.8 mmHg Ao V2 VTI 84.4 cm RYAN(I,A) 1.1 cm\S\2 RYAN(I,D) 1.1 cm\S\2 RYAN(V,A) 0.97 cm\S\2 RYAN(V,D) 0.97 cm\S\2 LV V1 max PG 3.8 mmHg LV V1 mean PG 2.2 mmHg LV V1 max 97.5 cm/sec LV V1 mean 66.9 cm/sec LV V1 VTI 24.0 cm SV(Ao) 562.6 ml SI(Ao) 293.3 ml/m\S\2 SV(LVOT) 89.0 ml SI(LVOT) 46.4 ml/m\S\2 PA V2 max 62.1 cm/sec PA max PG 1.5 mmHg
--- NOTE | 2016-12-08 17:37 | Medical Student: [facility] ---
Med Student History & Physical Date & Time of Service: December 08, 2016 at 17:16 Chief Complaint: New Onset Of Afib Primary Care Physician: Berhane Ballard M.D. History of Present Illness Source: patient, clinic records Ms Amber Pham is a pleasant 81 yo female who presented to the ED yesterday following an episode of intense chest pain and associated shortness of breath. She was found to be in a fib with rvr, and subsequently her troponins bumped. Since yesterday, she has been resting comfortably and has only had one episode of heart racing this morning. Otherwise she has had no symptoms. She has been evaluated by cardiology, who plan to do a cath tomorrow to evaluate blockage. Because her ECGs have indicated possible inferior or lateral infarct, in the picture of demand ischemia from a fib with RVR, cath is being done to rule out blockages. PMH includes asthma, HLD, and known severe aortic valve stenosis and thickening of the mitral valve leaflets. ROS is positive for fatigue secondary to poor sleep, but is otherwise negative for fever, chills, n/v, diarrhea, constipation, syncope, chest pain or shortness of breath. Past Medical/Surgical History Medical Problems: (1) Atrial fibrillation with rapid ventricular response Status: Acute Social History Smoking Status: Never Smoker Smokeless Tobacco Use: No Alcohol Use: none Drug Use: none Marital Status: Occupational Status: retired Allergies Coded Allergies: NO KNOWN DRUG ALLERGIES (Verified Allergy, Unknown, `, 12/07/16) Medications Simvastatin (Zocor), 5 MG PO QPM [Bp Meds] Review of Systems Constitutional: + fatigue, No chills, No fever, No sweats, No weakness, No weight loss Eyes: No problem reported ENT: No problem reported Respiratory: No problem reported Cardiovascular: + palpitations Abdomen: No problem reported Musculoskeletal: No problem reported Genitourinary - Female: No problem reported Neurologic: No problem reported Psychiatric: No problem reported Endocrine: No problem reported Physical Exam Vital Signs (24 Hours) Date Time Temp Pulse Resp B/P Pulse Ox O2 Delivery O2 Flow Rate FiO2 12/08/16 16:31 80 170/78 12/08/16 16:00 95 Room Air 12/08/16 15:41 36.7 91 20 172/96 95 Room Air 180/80 12/08/16 12:00 Room Air 5/15/17 11:58 36.9 81 16 141/83 94 Room Air 12/08/16 08:00 Room Air 12/08/16 07:47 36.7 71 16 132/81 98 Room Air 12/08/16 04:00 Room Air 12/08/16 03:58 36.6 63 18 137/71 96 Room Air 12/07/16 23:59 Room Air 12/07/16 23:04 36.7 71 18 136/73 95 Room Air 12/07/16 20:00 Room Air 12/07/16 18:55 36.5 74 20 137/70 99 Room Air 12/07/16 18:05 72 25 96 12/07/16 17:47 77 20 147/78 97 Room Air 12/07/16 17:35 77 20 98 12/07/16 17:31 147/78 Vitals: See above: General: W/D, W/N elderly female resting comfortably. HEENT: NCAT, EOMI, PERRLA. MMM. Neck supple, trachea midline. No anterior/ posterior cervical lymphadenopathy. CV: S1, S2, RRR. 3/6 decrescendo systolic murmur heard best over R sternal border which radiates to carotids bilaterally. Peripheral pulses intact and equal bilaterally. Pulm: Lungs clear to auscultation in upper and lower lobes bilaterally Abd: Soft, nontender, non-distended. No hepatosplenomegally. Sachi sounds active. Extremities: Trace 1+ pitting edema in lower extremities bilaterally. Neuro: CNII-XII intact, strength 5/5 b/l in upper and lower extremities. Sensation intact upper and lower extremities bilaterally. Psych: Alert, awake and oriented x 3. Diagnostics Laboratory Results Results Past 24 Hours Test 12/07/16 17:29 12/07/16 18:01 12/08/16 03:55 12/08/16 11:05 Range/Units Creatine Kinase MB Ratio 0-3.0 Creatine Kinase MB 2.5 0.5-3.6 ng/ml Troponin I 0.155 0.345 0.224 0-0.045 ng/ml Activated Partial Thromboplast Time 46.1 80.1 21.0-31.0 SECONDS Partial Thromboplastin Ratio 1.8 3.1 Estimated Average Glucose 123 mg/dl Hemoglobin A1c 5.9 4.5-5.6 % Phosphorus Level 3.6 2.5-4.9 mg/dl Magnesium Level 2.0 1.8-2.4 mg/dl Total Bilirubin 0.5 0.2-1 mg/dl Direct Bilirubin 0.2 0-0.2 mg/dl Aspartate Amino Transf (AST/SGOT) 15 15-37 U/L Alanine Aminotransferase (ALT/SGPT) 16 12-78 U/L Alkaline Phosphatase 83 45-117 U/L Total Protein 6.1 6.4-8.2 gm/dl Albumin 3.1 3.4-5.0 gm/dl Triglycerides Level 56 0-150 mg/dl Cholesterol Level 143 0-200 mg/dl HDL Cholesterol 78 mg/dl LDL Cholesterol, Calculated 54 mg/dl VLDL Cholesterol, Calculated 11 mg/dl Cholesterol/HDL Ratio 1.8 Diagnostic Radiology Echo: 1. Normal left ventricular size with hyperdynamic systolic function. EF > 70%. No regional wall motion abnormalities. No significant left ventricular hypertrophy. Type 1 diastolic dysfunction. 2. Moderate to severe aortic stenosis with trace regurgitation. 3. Severe atherosclerosis of thoracic aorta, with possible atheroma 4. Compared to prior study on 01/12/2012, aortic valve velocity and gradients are now higher. CXR normal EKG NSR with possible inferior or lateral infarct. Impression Assessment and Plan Ms Amber Pham is a pleasant 81 yo female in no acute distress. Her a fib converted with diltiazem and her condition is improving. Individual assessment and plan are as follows: 1. A fib with rvr- Converted to sinus rhythm on diltiazem. Will switch to oral metoprolol in preparation for discharge. There was no clear reason why this happened, although she does have mitral valve leafelet thickening with is a risk factor. Discussed need for anticoagulation upon discharge, and patient is in favor of NOAC. Will discuss further tomorrow. 2. Severe aortic stenosis- Cardiology performed echo today. Showed maintained EF with increased velocities. Card recs appreciated regarding possible TAVR. Sumptoms appear to be worsening. 3. Bump in Troponin- peaked at .345 this morning, now trending downward. Likely demand ischemnia from a fib w/ rvr. Patient will be cathed tomorrow. 4. Htn: BP controlled within limits. Will continue to check tomorrow once switched to metoprolol. 5. DVT prophylaxis: Continue heparin infusion. 6. Med maximization: Will discuss Alfred-I and home nitrates with patient tomorrow. 7. Disposition: Continued hospitalization for cath tomorrow. Will be NPO after dinner for cath in AM. Normal diet afterwards. Level of Care Telemetry Advanced Directives Existing Living Will: Yes Existing Power of Life Scientists: Yes DVT Prophylaxis other (patient on heparin drip)
[2016-12-08 18:32] LABS: PARTIAL THROMBOPLASTIN RATIO 1.9
[2016-12-08] MEDS: SIMVASTATIN 5 MG TAB PO SCH (20:14)
[2016-12-08] MEDS: METOPROLOL TARTRATE 25 MG TAB PO SCH (20:14)
[2016-12-08] MEDS ORDERED: METOPROLOL TARTRATE 25 MG TAB PO SCH (21:00)
[2016-12-09] VITALS (13 sets, daily range): BP systolic 132–177; BP diastolic 74–88; PULSE 57–79; TEMP 36.6–36.8; O2SAT 95–98
[2016-12-09] MEDS: HEPARIN 25,000 UNIT/500ML D5W 500 ML IV PRN (06:05)
[2016-12-09 07:34] LABS: MAGNESIUM 2.2 mg/dl (1.8-2.4); PHOSPHORUS 2.8 mg/dl (2.5-4.9)
[2016-12-09 09:02] LABS: HEMATOCRIT 43.4 % (37-47); MEAN CELL VOLUME 92.9 fL (80-100); MEAN CORPUSCULAR HEMOGLOBIN 31.7 pg (25-34); MEAN CORPUSCULAR HGB CONC 34.1 g/dl (32-36); MEAN PLATELET VOLUME 10.4 fL (7.4-10.4); PLATELET COUNT 223 K/uL (130-400); RED BLOOD COUNT 4.67 M/uL (4.2-5.4); WHITE BLOOD COUNT 5.96 K/uL (4.8-10.8)
--- NOTE | 2016-12-09 09:32 | Cardiology Follow-Up ---
Subjective Subjective Date of Service: December 09, 2016. Pt evaluation today including: conversation w/ patient, conversation w/ family , physical exam, chart review, lab review, review of studies, review of inpatient medication list Additional Details: Feeling well. No recurrent chest tightness shortness of breath. No other new complaints. Tele reviewed --- no recurrent atrial fibrillation. Problem List Medical Problems: (1) Atrial fibrillation with rapid ventricular response Status: Acute Review of Systems Constitutional: No fever Eyes: No worsening of vision Respiratory: No cough, No dyspnea on exertion, No shortness of breath, No sputum, No wheezing Cardiac: No chest pain Abdomen: No constipation, No diarrhea, No nausea, No pain, No vomiting Musculoskeletal: No joint pain Neurologic: No balance problems, No weakness Psychiatric: No depression symptoms Heme: No abnormal bleeding/bruising Endo: + fatigue Skin: No rash Objective Vital Signs Last Vital Signs Documentation Date Time Temp Pulse Resp B/P Pulse Ox O2 Delivery O2 Flow Rate FiO2 12/09/16 08:00 Room Air 12/09/16 07:40 36.8 61 20 141/81 98 Physical Exam: General Appearance: no apparent distress ENT: normal ENT inspection Neck: supple Respiratory/Chest: normal breath sounds, no respiratory distress, no accessory muscle use Cardiovascular: regular rate, rhythm, + systolic murmur (3/6 YONATAN at RUSB) Abdomen: normal bowel sounds, non tender, soft Extremities: normal range of motion, non-tender, normal inspection, + pedal edema (trace) Neurologic/Psychiatric: alert, normal mood/affect, oriented x 3 Skin: normal color, warm/dry, no rash Lymphatic: no adenopathy Assessment and Plan 1. Atrial fibrillation with RVR--remains in sinus rhythm 2. Severe aortic stenosis--newly symptomatic 3. Mildly elevated troponin--peaked yesterday; LV function unchanged; likely demand 4. Hypertension-- off home regimen -- Proceed with [facility] later today -- transition to NOAC post procedure, likely d/c ASA -- OK with low dose metoprolol -- would resume home Losartan/HCTZ (100/25), simvastatin (40) on discharge -- Pending cath likely discharge later today with plan for f/u with CT surgery at [facility] Continued [facility] stay due to: other Discharge planning: uncertain Medications: Current Inpatient Medications Medications (Trade) Dose Ordered Sig/Tasia Route Start Time Stop Time Status Last Admin Dose Admin Acetaminophen (Tylenol Tab) 650 mg Q4H PRN PO 12/07/16 17:30 01/06/17 17:29 Al Hydrox/Mg Hydrox/Simethicone (Maalox Max Susp) 15 ml Q4H PRN PO 12/07/16 17:30 01/06/17 17:29 Magnesium Hydroxide (Milk Of Magnesia Susp) 30 ml Q12H PRN PO 12/07/16 17:30 01/06/17 17:29 Zolpidem Tartrate (Ambien Tab) 5 mg HSZ PRN PO 12/07/16 17:30 01/06/17 17:29 Ondansetron HCl (Zofran Inj) 4 mg Q6H PRN IV 12/07/16 17:30 01/06/17 17:29 Polyethylene (Miralax Powder Packet) 17 gm DAILY PRN PO 12/07/16 17:30 01/06/17 17:29 Simvastatin (Zocor Tab) 5 mg QPM PO 12/07/16 21:00 01/06/17 20:59 12/08/16 20:14 5 MG Aspirin 81 mg 81 mg QAM PO 12/08/16 09:00 01/07/17 08:59 12/08/16 07:55 81 MG Diltiazem HCl/ Dextrose (Cardizem Inj/D5 100ml) 125 ml @ 5 mls/hr Q24H PRN IV 12/07/16 19:15 01/06/17 19:14 Future Hold Pantoprazole Sodium 40 mg 40 mg QAM PO 12/08/16 09:00 01/07/17 08:59 12/08/16 07:55 40 MG Heparin Sodium/ Dextrose (Heparin 25,000 Unit/500ml D5W) 500 ml @ 14 mls/hr Q24H PRN IV 12/07/16 21:15 01/06/17 21:14 12/09/16 06:05 14 MLS/HR Metoprolol Tartrate (Lopressor Tab) 25 mg BID PO 12/08/16 21:00 01/07/17 20:59 12/08/16 20:14 25 MG Lab Results: 12/09/16 08:42 Test 12/08/16 11:05 12/09/16 06:33 12/09/16 08:42 Troponin I 0.224 ng/ml (0-0.045) Activated Partial Thromboplast Time 50.9 SECONDS (21.0-31.0) Partial Thromboplastin Ratio 2.0 Phosphorus Level 2.8 mg/dl (2.5-4.9) Magnesium Level 2.2 mg/dl (1.8-2.4) Total Bilirubin 0.4 mg/dl (0.2-1) Direct Bilirubin 0.1 mg/dl (0-0.2) Aspartate Amino Transf (AST/SGOT) 18 U/L (15-37) Alanine Aminotransferase (ALT/SGPT) 19 U/L (12-78) Alkaline Phosphatase 86 U/L (45-117) Total Protein 6.5 gm/dl (6.4-8.2) Albumin 3.3 gm/dl (3.4-5.0) Red Blood Count 4.67 M/uL (4.2-5.4) Mean Corpuscular Volume 92.9 fL (80-100) Mean Corpuscular Hemoglobin 31.7 pg (25-34) Mean Corpuscular Hemoglobin Concent 34.1 g/dl (32-36) RDW Standard Deviation 46.5 fL (36.4-46.3) RDW Coefficient of Variation 13.7 % (11.5-14.5) Mean Platelet Volume 10.4 fL (7.4-10.4)
[2016-12-09 09:43] LABS: BUN/CREATININE RATIO 18.9 (10-20); CALCIUM 8.9 mg/dl (8.5-10.1); CREATININE 0.75 mg/dl (0.60-1.20); POTASSIUM 3.5 mmol/L (3.5-5.1)
[2016-12-09] MEDS: ASPIRIN 81 MG ECTAB PO SCH (10:12)
[2016-12-09] MEDS: METOPROLOL TARTRATE 25 MG TAB PO SCH (10:13)
[2016-12-09] MEDS: PANTOprazole SOD 40 MG TAB PO SCH (10:13)
[2016-12-09] MEDS ORDERED: MIDAZOLAM HCL 1 MG/ML 2ML VIAL ONE (12:42)
[2016-12-09] MEDS ORDERED: NiCARDipine HCL INJ 2.5 MG/ML 10 ML AMP ONE (12:42)
[2016-12-09] MEDS ORDERED: FENTANYL CITRATE INJ 50 MCG/1 ML 2 ML VIAL ONE (12:42)
[2016-12-09] MEDS ORDERED: NITROGLYCERIN/D5W 100MCG/ML 20ML SYR ONE (12:43)
[2016-12-09] MEDS ORDERED: HEPARIN SOD (PORCINE) 1000 UNIT/ML 10 ML VIAL ONE (12:46)
--- NOTE | 2016-12-09 13:44 | Procedure Note ---
Pre-Mod Sedation Assessment General Date of Moderate Sedation: December 09, 2016. Vital Signs: Vital Signs Past 12 Hours Date Time Temp Pulse Resp B/P Pulse Ox O2 Delivery O2 Flow Rate FiO2 12/09/16 13:30 70 16 142/67 97 Room Air 12/09/16 13:20 70 16 138/67 97 Room Air 12/09/16 12:00 Room Air 12/09/16 11:11 36.7 79 18 152/81 97 Room Air 12/09/16 08:00 Room Air 12/09/16 07:40 36.8 61 20 141/81 98 Room Air 12/09/16 04:00 Room Air 12/09/16 04:00 36.7 70 16 156/77 97 Room Air Review Cardiovascular: regular rate, rhythm, no edema Abdomen: normal bowel sounds, non tender Lungs: chest non-tender, lungs clear Pre-Sedation Airway Assessment Oral Cavity: Dentures Able to Visualize Vocal Cords: No Short Thick Neck: No Hx of Sleep Apnea: No Smoking Status: Never Smoker Mallampati Classification: Class II ASA Classification: Class III Procedure Planning Contraindications-for Mod Sed: None Yes Notes The planned sedation has been discussed with the patient and consent obtained. I have identified the patient, determined the appropriateness of sedation and have assessed the patient immediately prior to the procedure. All medicine(s) and interventions are by my order.
--- NOTE | 2016-12-09 13:54 | Procedure Note ---
Post-Mod Sedation Assessment General Date of Moderate Sedation December 09, 2016. Vital Signs: Vital Signs Past 12 Hours Date Time Temp Pulse Resp B/P Pulse Ox O2 Delivery O2 Flow Rate FiO2 12/09/16 13:30 70 16 142/67 97 Room Air 12/09/16 13:20 70 16 138/67 97 Room Air 12/09/16 12:00 Room Air 12/09/16 11:11 36.7 79 18 152/81 97 Room Air 12/09/16 08:00 Room Air 12/09/16 07:40 36.8 61 20 141/81 98 Room Air 12/09/16 04:00 Room Air 12/09/16 04:00 36.7 70 16 156/77 97 Room Air Review - Discharge Criteria Vital Signs Stable: Yes Alert/Oriented/Conversant: Yes Returned to Baseline Mental St: Yes Nausea Absent/Minimal: Yes Pain/Discomfort/Absent/Minimal: Yes Normal/Baseline Respirations: Yes Active Bleeding?: N/A Pt Received D/C Instructions: N/A Prescriptions Given: None Specific Proced. D/C Criteria Distal Pulses Present (Cardiac: Yes Groin site assessed-Card Cath: N/A Voided Prior To Discharge: N/A Discharged Patients Adult Escort/Transportation: Yes
--- NOTE | 2016-12-09 14:01 | Discharge Instructions ---
Discharge Instructions Date of Service December 09, 2016. Admission Reason for Admission: New Onset Of Afib, Left Heart Cath Discharge Discharge Diagnosis / Problem: left main disease, Discharge Goals Goal(s): Therapeutic intervention Activity Recommendations Activity Level: Assistance Required . Additional Information Patient informed of condition: Yes Advance Directives: No DNR: No Level of Care: Other Communicable Disease: No Prognosis: Stable Instructions / Follow-Up Instructions / Follow-Up This is a 81 yo f with known aortic stenosis that initially presented to the ED with chest pain and shortness of breath. She was found to have A fibb with RVR and some ST depression in lateral leads. Her heart rate was controlled using Diltiazem and she remained on a drip overnight. She converted to NSR. Her troponin was also trended and peaked at 0.3. Since there was ST depression previously and there was concern for NSTEMI she was started on a heparin drip and she received ASA. As it peaked at 0.3 this most likely reflects demand ischemia. She was also seen by cardiology and after discussing her aortic stenosis and degrading exercise capacity it was decided that she would undergo a cardiac cath in preparation for a potential valvuloplasty. Catheterization was completed and revealed extensive left main disease and in the presence of aortic stenosis it was decided that it would be best transfer patient to a tertiary center for care. A fib with RVR ; new onset ; CHADSVASC 3 - Patient was converted from IV diltiazem to oral Metoprolol - Patient was tolerating metoprolol 25 mg bid PO, this would be a new script - plan was to d/c on a NOAC - had extensive discussion regarding risk vs benefit and patient reflected understanding and would like to go forward with anticoagulation once appropriate and patient is stable - did check with pharmacy and Xarelto would cost 19.50/month - echo- 10/2016 - nm LV/RV - EF 65-70% - severe - echo was repeated in house and reflected worsening gradient severe Aortic stenosis; Left main disease - Echo as noted above Elevated troponin - demand ischemia - troponin followed to peak and improved while in house Dyslipidemia - continued simvastatin Current Hospital Diet Patient's current hospital diet: AHA Diet (Heart Healthy) Discharge Diet Recommended Diet: AHA Diet (Heart Healthy), Low Sodium Diet (2gm Na) Pending Studies Studies pending at discharge: no Physician Orders On Transfer POLST Discussion: without POLST completion Laboratory Results Hemoglobin A1c Test 5/15/17 03:55 Range/Units Estimated Average Glucose 123 mg/dl Hemoglobin A1c 5.9 H 4.5-5.6 % Lipid Panel Test 12/08/16 03:55 Range/Units Triglycerides Level 56 0-150 mg/dl Cholesterol Level 143 0-200 mg/dl HDL Cholesterol 78 mg/dl Cholesterol/HDL Ratio 1.8 LDL Cholesterol, Calculated 54 mg/dl Medical Emergencies . Who to Call and When: Medical Emergencies: If at any time you feel your situation is an emergency, please call 911 immediately. . Non-Emergent Contact Non-Emergency issues call your: Primary Care Provider . . "Provider Documentation" section prepared by Sol Heller. . Core Measure Problem Core Measures: None
--- NOTE | 2016-12-09 14:04 | Discharge Summary ---
Discharge Summary Date of Service December 09, 2016. (Sol Heller MD) Discharge Summary Admission Date: December 07, 2016 at 17:35 Discharge Date: December 09, 2016 Discharge Disposition: Acute care facility Principal Diagnosis: left main disease, Aortic stenosis Procedures: cardiac cath Consultations: Cardiology Dr Cruz (Sol Heller MD) Discharge Disposition: Acute care facility (Jamar Dior D.O.) Medication Reconciliation Continued Medications: Simvastatin (Zocor) 5 Mg Tab 5 MG PO QPM, TAB Discontinued Medications: [Bp Meds] () 2 HIGH BP MEDS. UNSURE THE NAMES AND DOSES Discharge Exam Patient was feeling well after cardiac cath, is agreeable to transfer to tertiary facility for further care Review of Systems: Constitutional: No fever ENT: No hearing loss Respiratory: No cough, No dyspnea at rest, No dyspnea on exertion, No shortness of breath, No sputum, No wheezing Cardiovascular: No chest pain Abdomen: No constipation, No diarrhea, No nausea, No pain, No vomiting Musculoskeletal: No joint pain, No muscle pain Genitourinary - Female: No dysuria Neurologic: + weakness, No balance problems, No numbness/tingling Endocrine: + fatigue Integumentary: No rash (Sol Heller MD) Hospital Course This is a 81 yo f with known aortic stenosis that initially presented to the ED with chest pain and shortness of breath. She was found to have A fibb with RVR and some ST depression in lateral leads. Her heart rate was controlled using Diltiazem and she remained on a drip overnight. She converted to NSR. Her troponin was also trended and peaked at 0.3. Since there was ST depression previously and there was concern for NSTEMI she was started on a heparin drip and she received ASA. As it peaked at 0.3 this most likely reflects demand ischemia. She was also seen by cardiology and after discussing her aortic stenosis and degrading exercise capacity it was decided that she would undergo a cardiac cath in preparation for a potential valvuloplasty. Catheterization was completed and revealed extensive left main disease and in the presence of aortic stenosis it was decided that it would be best transfer patient to a tertiary center for care. A fib with RVR ; new onset ; CHADSVASC 3 - Patient was converted from IV diltiazem to oral Metoprolol - Patient was tolerating metoprolol 25 mg bid PO, this would be a new script - plan was to d/c on a NOAC - had extensive discussion regarding risk vs benefit and patient reflected understanding and would like to go forward with anticoagulation once appropriate and patient is stable - did check with pharmacy and Xarelto would cost 19.50/month - echo- 10/2016 - nm LV/RV - EF 65-70% - severe - echo was repeated in house and reflected worsening gradient severe Aortic stenosis; Left main disease - Echo as noted above Elevated troponin - demand ischemia - troponin followed to peak and improved while in house Dyslipidemia - continued simvastatin Total Time Spent: Greater than 30 minutes This includes examination of the patient, discharge planning, medication reconciliation, and communication with other providers. (Sol Heller MD) Resident Physician Supervision Note: I interviewed and examined the patient. Discussed with Dr. Heller and agree with findings and plan as documented in the note. Any exceptions or clarifications are listed here: None Documented By: Jamar Dior feeling ok post cath. understands plan to go to [facility]. discussed extensively. answered all questions to the best of my ability ros otherwise negative except for as above vitals noted nad breathing unlabored no pallor or icterus new onset afib - sinus now. ongoing chronic management aortic stenosis and severe left main disease -- for transfer to tertiary for CT surg eval stable for transfer via ground Total Time Spent: Less than 30 minutes (Jamar Dior, D.O.) Discharge Instructions Please refer to the electronic Patient Visit Report (Discharge Instructions) for additional information. (Sol Heller MD) Additional Copies To Berhane Ballard M.D.
--- NOTE | 2016-12-09 14:14 | Cardiac Catheterization ---
Procedure Note Procedure Date December 09, 2016. Pre-Procedure Diagnosis Non STEMI, Valvular Disease AUC Score 8 Post-Procedure Diagnosis Severe CAD Procedure(s) Performed Coronary Angiography District Leader Dr. rCuz Wind Commissioning Technician(s) Medication(s) Fentanyl, Heparin, Nitroglycerin, Versed, Lidocaine 1% Summary of Findings Indication: NSTEMI, Severe Aortic stenosis Access: 6Fr Slender Right Radial Artery Catheters: [place], JL3.5 Findings: LM - Severely calcified, diffuse disease up to 90% distally at bifurcation of LAD/Circumflex LAD - Ostial LAD 90%, mid LAD 50% prior to bifurcation of 1st diagonal Circumflex - Large caliber vessel with only luminal irregularities RCA - Dominant, 20-30% diffuse proximal disease; distal luminal irregularities. Arterial Closure: TR Band Summary: 1. Severe Left Main coronary artery disease - Calcified, diffuse disease up to 90% at bifurcation of LAD/Circumflex. Recommendations: In the setting of severe , elevated troponin, progressive symptoms recommend transfer to [facility] for evaluation by CT Surgery, CABG with AVR. Continue ASA/Statin, beta-aiden and ARB Resume heparin after radial artery hemostasis. Hemodynamics Rest Ao: 129/57/86 Final Ao: 131/65/93 LV: -- Recommendations CABG, valve replacement Specimens None Radiation Exposure (mGy) 706 Contrast (mls) 70 Visipaque Fluids (cc crystalloids) 60 Drains None Anesthesia Moderate Procedural Complication(s) None Disposition PCU ACC Data Cardiac Status Clinical evaluation leading to the procedure CAD Presntation: Non STEMI Anginal Classification: CCS IV Heart Failure: No, NYHA Class: CCS I Cardiogenic Shock w/in 24Hrs: No Cardiac Arrest w/in 24Hrs: No Imaging studies past 6 months: Yes Stress studies past 6 months: No Standard Exercise Stress Test: No Stress Echocardiogram: No Stress Testing w/SPECT MPI: No Cardiac CTA: No Coronary Anatomy Dominant: Right Left Main (% Stenosis): Distal (90) LAD (% Stenosis): Ostial (90), Mid (50) RCA (% Stenosis): Proximal (20-30) Diagnostic Physician's Name: Berhane Cruz MD Status: Elective Closure Device Percutaneous Entry Location: Radial Closure Device: Radial Band Recommendations: CABG, valve replacement Intraprocedure Events Significant Dissection: No Perforation: No
[2016-12-09] MEDS ORDERED: SODIUM CHLORIDE 0.9% 1000ML 1,000 ML IV SCH (15:04)
[2016-12-09] MEDS ORDERED: ACETAMINOPHEN 325 MG TAB PO PRN (15:15)
--- NOTE | 2016-12-09 18:36 | Medical Student: [facility] ---
Med Student Progress Note Date of Service December 09, 2016. Subjective Pt evaluation today including: conversation w/ patient, conversation w/ family , physical exam, chart review, lab review, review of studies Voiding: no voiding problems, no incontinence Ms Amber Pham is a 81 yo female who presented two days ago with chest pain, a fib with rvr, and sob. She has had complete resolution of symptoms since on diltiazem. She underwent cardiac cath today and was found to have 90% occlusion of L main coronary artery. Upon discussion with cardiology, it was decided to recommend patient to be transferred to [place] for CT eval for CABG and aortic valve replacement. Following cath, Ms Pham was resting comfortably and, while not happy with outcome of cath, is agreeable to plan to be transferred to [place] for further care and evaluation for aortic valve replacement and bypass grafting. She denies chest pain, shortness of breath, nausea, vomiting, diarrhea, urinary frequency or urgency, loss of consciousness or other symptoms. Review of Systems Constitutional: + see HPI Eyes: No problem reported ENT: No problem reported Respiratory: No problem reported Cardiac: No problem reported Abdomen: No problem reported Musculoskeletal: No problem reported Female : No problem reported Neurologic: No problem reported Psychiatric: No problem reported Objective Vital Signs Date Time Temp Pulse Resp B/P Pulse Ox O2 Delivery O2 Flow Rate FiO2 12/09/16 17:25 36.6 58 16 96 Room Air 12/09/16 17:24 36.6 58 16 96 12/09/16 16:00 96 Room Air 12/09/16 15:50 36.6 58 16 163/74 96 Room Air 12/09/16 15:15 57 148/79 12/09/16 14:45 64 18 157/79 95 Room Air 12/09/16 14:15 62 18 177/81 97 Room Air 12/09/16 14:00 66 16 168/74 97 Room Air 12/09/16 13:45 36.6 61 16 155/74 96 Room Air 12/09/16 13:30 70 16 142/67 97 Room Air 12/09/16 13:20 70 16 138/67 97 Room Air 12/09/16 12:00 Room Air 12/09/16 11:11 36.7 79 18 152/81 97 Room Air 12/09/16 08:00 Room Air 12/09/16 07:40 36.8 61 20 141/81 98 Room Air 12/09/16 04:00 Room Air 12/09/16 04:00 36.7 70 16 156/77 97 Room Air 12/09/16 00:05 36.8 63 16 132/88 96 Room Air 12/09/16 00:00 Room Air 12/08/16 20:00 Room Air 12/08/16 19:45 36.8 74 18 151/85 95 Room Air Physical Exam General Appearance: WD/WN, no apparent distress Eyes: bilateral eyes EOMI, bilateral eyes PERRL, bilateral eyes normal inspection ENT: normal ENT inspection, hearing grossly normal, TMs normal Neck: supple, no adenopathy, thyroid normal, no JVD, no carotid bruits, trachea midline Respiratory/Chest: chest non-tender, lungs clear, normal breath sounds, no respiratory distress, no accessory muscle use Cardiovascular: regular rate, rhythm, no edema, no gallop, + systolic murmur (3 /6 decrescendo murmur radiating to carotids), + normal peripheral pulses Abdomen: normal bowel sounds, non tender, soft Extremities: normal range of motion, non-tender, normal inspection, + pertinent finding (cath site on R wrist clean and not bleeding) Neurologic/Psychiatric: alert, normal mood/affect, oriented x 3 Skin: normal color, warm/dry Laboratory Results Last 24 Hours Test 12/09/16 06:33 12/09/16 08:42 Activated Partial Thromboplast Time 50.9 SECONDS Partial Thromboplastin Ratio 2.0 Phosphorus Level 2.8 mg/dl Magnesium Level 2.2 mg/dl Total Bilirubin 0.4 mg/dl Direct Bilirubin 0.1 mg/dl Aspartate Amino Transf (AST/SGOT) 18 U/L Alanine Aminotransferase (ALT/SGPT) 19 U/L Alkaline Phosphatase 86 U/L Total Protein 6.5 gm/dl Albumin 3.3 gm/dl White Blood Count 5.96 K/uL Red Blood Count 4.67 M/uL Hemoglobin 14.8 g/dL Hematocrit 43.4 % Mean Corpuscular Volume 92.9 fL Mean Corpuscular Hemoglobin 31.7 pg Mean Corpuscular Hemoglobin Concent 34.1 g/dl RDW Standard Deviation 46.5 fL RDW Coefficient of Variation 13.7 % Platelet Count 223 K/uL Mean Platelet Volume 10.4 fL Sodium Level 141 mmol/L Potassium Level 3.5 mmol/L Chloride Level 106 mmol/L Carbon Dioxide Level 31 mmol/L Anion Gap 4.0 mmol/L Blood Urea Nitrogen 14 mg/dl Creatinine 0.75 mg/dl Est Creatinine Clear Calc Drug Dose 64.4 ml/min Estimated GFR () 87.9 Estimated GFR (Non- 75.8 BUN/Creatinine Ratio 18.9 Random Glucose 110 mg/dl Calcium Level 8.9 mg/dl Assessment and Plan Assessment and Plan: Ms Amber Pham is a pleasant 81 yo female with a 90% occlusion of L main coronary and severe aortic stenosis. She will be transferred to [place] for surgical evaluation and continued care. Otherwise she is stable and in no acute distress. Individual assessment and plan are as follows: 1. A fib with rvr- Converted to sinus rhythm on diltiazem. Will switch to oral metoprolol in preparation for discharge. There was no clear reason why this happened, although she does have mitral valve leafelet thickening with is a risk factor. Long-term anticoagulation deferred to CT surgery. 2. Coronary artery disease: Newly diagnosed, 90% occlusion of Left Main. Will be transferred to [place] for surgical eval as inpatient. 3.. Severe aortic stenosis- Cardiology performed echo yesterday. Showed maintained EF with increased velocities. Because of 90% occlusion, will be evaluated for replacement at time of CABG. 4.. Bump in Troponin- peaked at .345 this morning, now trending downward. Likely demand ischemnia from a fib w/ rvr. 90% occlusion of L main validates this. 5. Htn: BP controlled within limits. Continue home meds on d/c. 6. DVT prophylaxis: Continue heparin 7. Disposition: Transfer to [place] for CT eval for CAGB and aortic valve replacement. Continued [facility] stay due to: other Discharge planning: uncertain
[2017-03-17] MEDS ORDERED: ATOR-24 PO (09:50)
[2017-03-17] MEDS ORDERED: HYZ/10015 PO (09:50)
[2017-03-17] MEDS ORDERED: METO25TA56 PO (09:50)
[2017-03-17] MEDS ORDERED: AMLO-114 PO (09:50)
[2017-03-17] MEDS ORDERED: APIX1TAB3 PO (09:50)
[2017-03-17] MEDS ORDERED: ASPI81TA28 PO (09:50)
== END 2016-12-09 17:29 | disposition short-term general hospital (02) | DRG 287 ==
LOC: ENRESERVTM → ENRESERVDT → C.EDB 14:07 → C.2T 17:35
PROVIDERS: ADMIT Hospitalist; ATTEND Family Medicine
PROC: 4A023N7 Measurement of Cardiac Sampling and Pressure, Left Heart, Percutaneous Approach (ICD-10-PCS; principal; 2016-12-09 13:00)
PROC: B2111ZZ Fluoroscopy of Multiple Coronary Arteries using Low Osmolar Contrast (ICD-10-PCS; principal; 2016-12-09 13:00)
DX: I25.10 Atherosclerotic heart disease of native coronary artery without angina pectoris (principal); I24.8 Other forms of acute ischemic heart disease; I48.91 Unspecified atrial fibrillation; I08.0 Rheumatic disorders of both mitral and aortic valves; I10 Essential (primary) hypertension; H93.19 Tinnitus, unspecified ear; T39.015A Adverse effect of aspirin, initial encounter; J45.909 Unspecified asthma, uncomplicated; E78.5 Hyperlipidemia, unspecified; R73.03 Prediabetes; M81.0 Age-related osteoporosis without current pathological fracture; M19.90 Unspecified osteoarthritis, unspecified site; Z79.899 Other long term (current) drug therapy

== ENCOUNTER → 2017-01-28 | Outpatient (CLI) | payer BC, OTHER ==
[~2017-01-28] MED LIST: AMLO-114 PO; APIX1TAB3 PO; ASPI81TA28 PO; ATOR-24 PO; HYZ/10015 PO; METO25TA56 PO; SIMV5TAB2 PO
[2017-01-28 13:15] LABS: ESTIMATED AVERAGE GLUCOSE 114 mg/dl; HA1C FLAG Normal (Normal)
== END | disposition home or self-care (01) ==
LOC: C.LABBFT 07:45
PROVIDERS: ATTEND Internal Medicine
DX: R73.03 Prediabetes (principal); M81.0 Age-related osteoporosis without current pathological fracture

== ENCOUNTER → 2017-02-04 | Outpatient (CLI) | payer BC ==
[2017-02-04 17:37] LABS: BASO % 0.6 %; BASO ABS # 0.04 K/uL (0-0.2); COMPLETE YES; EOS % 2.2 %; HEMATOCRIT 41.4 % (37-47); IG% 0.2 %; LYMPH % 27.3 %; LYMPH ABS # 1.71 K/uL (1.2-3.4); MEAN CELL VOLUME 96.5 fL (80-100); MEAN CORPUSCULAR HEMOGLOBIN 31.5 pg (25-34); MEAN CORPUSCULAR HGB CONC 32.6 g/dl (32-36); MEAN PLATELET VOLUME 10.7 fL (7.4-10.4); MONO % 8.1 %; NEUT % 61.6 %; PLATELET COUNT 237 K/uL (130-400); RED BLOOD COUNT 4.29 M/uL (4.2-5.4); WHITE BLOOD COUNT 6.27 K/uL (4.8-10.8)
[2017-02-04 17:44] LABS: ALT/SGPT 22 U/L (12-78); BLOOD UREA NITROGEN 25 mg/dl (7-18); BUN/CREATININE RATIO 22.4 (10-20); CALCIUM 9.1 mg/dl (8.5-10.1); CARBON DIOXIDE 27 mmol/L (21-32); CHLORIDE 104 mmol/L (98-107); GLUCOSE 129 mg/dl (70-99); POTASSIUM 3.8 mmol/L (3.5-5.1); SODIUM 139 mmol/L (136-145)
[2017-02-04 17:47] LABS: ALKALINE PHOSPHATASE 126 U/L (45-117); AST/SGOT 19 U/L (15-37)
== END | disposition home or self-care (01) ==
LOC: C.LABBFT 11:34
PROVIDERS: ATTEND Internal Medicine
DX: I48.0 Paroxysmal atrial fibrillation (principal)

== ENCOUNTER → 2017-04-01 | Day surgery (SDC) | payer BC ==
[2017-03-17 09:50] VITALS: Ht 160 cm; Wt 84.5 kg
[~2017-04-01] VITALS: Ht 160 cm; Wt 84.5 kg
[~2017-04-01] MED LIST changes: +500ML BSS 0.3ML EPI 1:1000PF IRRIG ONE; +ACETAMINOPHEN 325 MG TAB PO PRN; +AMVISC PLUS 0.8ML SYRINGE INT OCU ONE; +ATROPINE SULFATE 0.1 MG/ML 5ML SYR IV PRN; +BSS FLUSH ONE; +ENDOCOAT 0.85ML SYRINGE INT OCU ONE; +EpHEDrine SULFATE INJ 50 MG/ML AMP IV PRN; +EpINEphrine INJ 1MG/ML AMP 1 MG/ML AMP ONE; +LACTATED RINGER'S 1000ML 500 ML IV SCH; +LIDOCAINE 4% OP SOLN DROP CHARGE ONE; +LIDOCAINE 4% OP SOLN DROP CHARGE OPR SCH; +LIDOCAINE HCL 1% MPF 2 ML VIAL ONE; +MIDAZOLAM HCL 1 MG/ML 2ML VIAL ONE; +MIX: 4ML BSS 1ML EPI 1:1000 PF TOP ONE; +MOXIFLOXACIN OPH SOLN PER DROP CHARGE ONE; +POVIDONE-IODINE OP SOLN 30 ML BTL ONE; +PROPARACAINE 0.5% OP SOLN PER DROP CHARGE OPR SCH; -SIMV5TAB2 PO; +TOBRAMYCIN/DEXAMETHASONE OPH OINT PER APPLN CHARGE ONE
--- NOTE | 2017-04-01 11:03 | History & Physical Bridge - SC ---
H&P Re-Evaluation Bridge Note: I have examined the patient, reviewed the History & Physical and in the interval since the performance of the History & Physical I have noted the following changes of clinical significance: No changes noted
[2017-04-01] MEDS: PHENYLEPHRINE HCL 2.5% OP SOLN PER DROP CHARGE OPR SCH ×3 (11:06→11:16)
[2017-04-01] MEDS: TROPICAMIDE 1% OP SOLN PER DROP CHARGE OPR SCH ×3 (11:07→11:17)
[2017-04-01] MEDS: CYCLOPENTOLATE HCL 1% OP SOLN PER DROP CHARGE OPR SCH ×3 (11:08→11:18)
[2017-04-01] MEDS: MOXIFLOXACIN OPH SOLN PER DROP CHARGE OPR SCH ×3 (11:09→11:19)
--- NOTE | 2017-04-01 12:15 | [facility] Post Operative Brief Note ---
Immediate Operative Summary Operative Date Apr 01, 2017. Pre-Operative Diagnosis Cataract Right Eye Post-Operative Diagnosis Same Procedure(s) Performed Right Cataract Phacoemulsification With Intraocular Lens Implant Surgeon Dr. Petersen [facility] Professor Surgeon(s) None Estimated Blood Loss 0 Findings right cataract Specimens None Complication(s) None Disposition
--- NOTE | 2017-04-01 12:16 | [facility] Operative Report ---
Operative Report Date of Service Apr 01, 2017. Operative Report Phaco with monofocal IOL DATE OF OPERATION: 04/01/17 PREOPERATIVE DIAGNOSIS: Senile nuclear cataract, right eye POSTOPERATIVE DIAGNOSIS: Senile nuclear cataract, right eye PROCEDURE PERFORMED: Phacoemulsification with intraocular lens implantation, right eye SURGEON: Dr. Harrison Petersen ANESTHESIA: Topical with 1% intracameral lidocaine and monitored anesthesia care COMPLICATIONS: None DESCRIPTION OF PROCEDURE: After positively identifying the patient both verbally and by wristband in the preoperative area, the right eye was marked as the operative eye. The patient was then brought back to the operating room by the anesthesia and nursing staff where they were given a drop of Lidocaine and betadine into the operative eye. They were then sterilely prepped and draped in the standard fashion typical for ophthalmic surgery. Steri-strips were placed along the upper eyelids to keep the lashes back, and a lid speculum was placed into the operative eye. At this point, a documented time out was performed with members of the ophthalmology, nursing, and anesthesia staffs all agreeing upon the correct patient, correct location for surgery, correct procedure, and correct type and power of intraocular lens to be implanted. The microscope was then swung into position. First, a paracentesis wound was made using a sideport blade. Then, in sequence, 1% preservative-free lidocaine followed by Endocoat viscoelastic was injected into the anterior chamber. Next , the main incision was made with a keratome blade in triplanar fashion. A sharp cystotome was introduced into the eye and used to create a tear in the anterior capsule, which was directed into a continuous curvilinear capsulorrhexis using Utrata forceps. Hydrodissection was then performed with BSS on a flat-tip cannula. Next, the phacoemulsification handpiece was introduced into the eye and used to remove the nucleus in a [id number] fashion. This was done without complication and then the irrigation-aspiration handpiece was introduced into the eye and used to remove all remaining cortical and epinuclear material. Amvisc was then injected into the anterior chamber as well as into the capsular bag and using the lens injector system, an MX60 23.5 D lens, serial number [id number], and expiration date 11/2017 was injected into the capsular bag and rotated into the correct position. Next, the irrigation- aspiration handpiece was used to remove all remaining Amvisc. BSS was used to hydrate the main wound, and then BSS was injected into the paracentesis site to reach physiologic pressure and then the main wound was checked and found to be watertight. The patient was given drops of Vigamox and Tobradex ointment into the operative eye, and then the surrounding area was cleaned and dried. A clear plastic shield was placed over the eye and the patient was then sat up and taken from the operating room by the anesthesia staff having tolerated the procedure well and suffering no complications. DISPOSITION: The patient was returned to the recovery room in stable condition. I attest to the content of the Intraoperative Record and any orders documented therein. Any exceptions are noted below.
--- NOTE | 2017-04-01 12:17 | Discharge Instructions-SurgCtr ---
Discharge Instructions Date of Service Apr 01, 2017. Visit Reason for Visit: Cataract Right Eye Discharge Discharge Diagnosis / Problem: right cataract Discharge Goals Goal(s): Decrease discomfort, Improve function Activity Recommendations Activity Limitations: as noted below Anesthesia . Post Anesthesia Instructions: If you have had General Anesthesia or IV Sedation: * Do not drive today. * Resume driving when surgeon permits. * Do not make important decisions or sign legal documents today. * Call surgeon for: 1. Temperature elevations greater than 101 degrees F. 2. Uncontrollable pain. 3. Excessive bleeding. 4. Persistent nausea and vomiting. 5. Medication intolerance (nausea, vomiting or rash). * For nausea and vomiting use only clear liquids such as: tea, soda, bouillon until nausea subsides, then gradually increase diet as tolerated. * If you have any concerns or questions, call your surgeon's office. If physician is unavailable and it is an emergency, call 911 or go to the nearest emergency room. . Instructions / Follow-Up Instructions / Follow-Up ACTIVITY RECOMMENDATIONS: * Light activities. * You may walk outside, read, watch television. * You may notice redness on the white part of the eye and some blurry vision - this is normal. MEDICATIONS: Resume previous medications unless instructed otherwise by your surgeon. Start all eye drops at 2:30 pm today: * Eye drops (today): Prednisone - one drop in operative eye every 2 hours while awake Ciprofloxacin - one drop in operative eye every 2 hours while awake Ilevro - one drop in operative eye daily SPECIAL CARE INSTRUCTIONS: * Tape plastic shield over eye to sleep at night. Call your doctor at with any concerns or problems. FOLLOW UP VISIT: Follow-up with Dr Petersen at [place] office as scheduled. Diet Recommendations Home Diet: no limitations Procedures Procedures Performed: Right Cataract Phacoemulsification With Intraocular Lens Implant Pending Studies Studies pending at discharge: no Medical Emergencies . Who to Call and When: Medical Emergencies: If at any time you feel your situation is an emergency, please call 911 immediately. . Non-Emergent Contact Non-Emergency issues call your: Surgeon . . "Provider Documentation" section prepared by Harrison Petersen. .
[2017-04-01 12:18] VITALS: TEMP 36.5
[2017-04-01 12:40] VITALS: BP 156/77; PULSE 77; O2SAT 97
--- NOTE | 2017-04-01 12:46 | Anesthesia Progress Nt - [facility] ---
Anesthesia Post Op Note Date & Time Apr 01, 2017 at 12:46 Vital Signs Pain Intensity: 0 Vital Signs Past 12 Hours Date Time Temp Pulse Resp B/P (MAP) Pulse Ox O2 Delivery O2 Flow Rate FiO2 04/01/17 12:40 77 16 156/77 (103) 97 Room Air 04/01/17 12:18 36.5 75 16 141/77 (98) 98 Room Air 04/01/17 10:52 36.7 77 22 145/83 (103) 96 Room Air Notes Mental Status: alert / awake / arousable, participated in evaluation Pt Amnestic to Procedure: Yes Nausea / Vomiting: adequately controlled Pain: adequately controlled Airway Patency, RR, SpO2: stable & adequate BP & HR: stable & adequate Hydration State: stable & adequate Anesthetic Complications: no major complications apparent
== END | disposition home or self-care (01) ==
LOC: X.SURG 10:37
PROVIDERS: ATTEND Ophthalmology
DX: H25.11 Age-related nuclear cataract, right eye (principal); I34.1 Nonrheumatic mitral (valve) prolapse; I10 Essential (primary) hypertension; E78.00 Pure hypercholesterolemia, unspecified; M81.0 Age-related osteoporosis without current pathological fracture; Z79.899 Other long term (current) drug therapy

== ENCOUNTER → 2017-04-15 | Day surgery (SDC) | payer BC ==
[2017-04-08 13:06] VITALS: Ht 160 cm; Wt 84.5 kg
[~2017-04-15] VITALS: Ht 160 cm; Wt 84.5 kg
[~2017-04-15] MED LIST changes: -LACTATED RINGER'S 1000ML 500 ML IV SCH; +LIDOCAINE 4% OP SOLN DROP CHARGE OPL SCH; -LIDOCAINE 4% OP SOLN DROP CHARGE OPR SCH; +PROPARACAINE 0.5% OP SOLN PER DROP CHARGE OPL SCH; -PROPARACAINE 0.5% OP SOLN PER DROP CHARGE OPR SCH
[2017-04-15] MEDS: PHENYLEPHRINE HCL 2.5% OP SOLN PER DROP CHARGE OPL SCH ×3 (06:42→06:52)
[2017-04-15] MEDS: TROPICAMIDE 1% OP SOLN PER DROP CHARGE OPL SCH ×3 (06:43→06:55)
[2017-04-15] MEDS: CYCLOPENTOLATE HCL 1% OP SOLN PER DROP CHARGE OPL SCH ×3 (06:44→06:56)
[2017-04-15] MEDS: MOXIFLOXACIN OPH SOLN PER DROP CHARGE OPL SCH ×3 (06:45→06:57)
--- NOTE | 2017-04-15 07:32 | [facility] Post Operative Brief Note ---
Immediate Operative Summary Operative Date Apr 15, 2017. Pre-Operative Diagnosis Left Eye Cataract Post-Operative Diagnosis Same Procedure(s) Performed Left Cataract Phacoemulsification With Intraocular Lens Implant Surgeon Dr Petersen Filler Feeder Surgeon(s) None Estimated Blood Loss 0ml Findings left cataract Specimens None Complication(s) None Disposition
[2017-04-15 07:33] VITALS: TEMP 36.5
--- NOTE | 2017-04-15 07:33 | [facility] Operative Report ---
Operative Report Date of Service Apr 15, 2017. Operative Report Phaco with monofocal IOL DATE OF OPERATION: 04/15/17 PREOPERATIVE DIAGNOSIS: Senile nuclear cataract, left eye POSTOPERATIVE DIAGNOSIS: Senile nuclear cataract, left eye PROCEDURE PERFORMED: Phacoemulsification with intraocular lens implantation, left eye SURGEON: Dr. Harrison Petersen ANESTHESIA: Topical with 1% intracameral lidocaine and monitored anesthesia care COMPLICATIONS: None DESCRIPTION OF PROCEDURE: After positively identifying the patient both verbally and by wristband in the preoperative area, the left eye was marked as the operative eye. The patient was then brought back to the operating room by the anesthesia and nursing staff where they were given a drop of Lidocaine and betadine into the operative eye. They were then sterilely prepped and draped in the standard fashion typical for ophthalmic surgery. Steri-strips were placed along the upper eyelids to keep the lashes back, and a lid speculum was placed into the operative eye. At this point, a documented time out was performed with members of the ophthalmology, nursing, and anesthesia staffs all agreeing upon the correct patient, correct location for surgery, correct procedure, and correct type and power of intraocular lens to be implanted. The microscope was then swung into position. First, a paracentesis wound was made using a sideport blade. Then, in sequence, 1% preservative-free lidocaine followed by Endocoat viscoelastic was injected into the anterior chamber. Next , the main incision was made with a keratome blade in triplanar fashion. A sharp cystotome was introduced into the eye and used to create a tear in the anterior capsule, which was directed into a continuous curvilinear capsulorrhexis using Utrata forceps. Hydrodissection was then performed with BSS on a flat-tip cannula. Next, the phacoemulsification handpiece was introduced into the eye and used to remove the nucleus in a [id number]-[id number]-ockowjd fashion. This was done without complication and then the irrigation-aspiration handpiece was introduced into the eye and used to remove all remaining cortical and epinuclear material. Amvisc was then injected into the anterior chamber as well as into the capsular bag and using the lens injector system, an MX60 24.0 D lens, serial number [id number], and expiration date 06/2019 was injected into the capsular bag and rotated into the correct position. Next, the irrigation- aspiration handpiece was used to remove all remaining Amvisc. BSS was used to hydrate the main wound, and then BSS was injected into the paracentesis site to reach physiologic pressure and then the main wound was checked and found to be watertight. The patient was given drops of Vigamox and Tobradex ointment into the operative eye, and then the surrounding area was cleaned and dried. A clear plastic shield was placed over the eye and the patient was then sat up and taken from the operating room by the anesthesia staff having tolerated the procedure well and suffering no complications. DISPOSITION: The patient was returned to the recovery room in stable condition. I attest to the content of the Intraoperative Record and any orders documented therein. Any exceptions are noted below.
--- NOTE | 2017-04-15 07:34 | Discharge Instructions-[facility]urgCtr ---
Discharge Instructions Date of Service Apr 15, 2017. Visit Reason for Visit: Cataract Left Eye Discharge Discharge Diagnosis / Problem: left cataract Discharge Goals Goal(s): Decrease discomfort, Improve function Activity Recommendations Activity Limitations: as noted below Anesthesia . Post Anesthesia Instructions: If you have had General Anesthesia or IV Sedation: * Do not drive today. * Resume driving when surgeon permits. * Do not make important decisions or sign legal documents today. * Call surgeon for: 1. Temperature elevations greater than 101 degrees F. 2. Uncontrollable pain. 3. Excessive bleeding. 4. Persistent nausea and vomiting. 5. Medication intolerance (nausea, vomiting or rash). * For nausea and vomiting use only clear liquids such as: tea, soda, bouillon until nausea subsides, then gradually increase diet as tolerated. * If you have any concerns or questions, call your surgeon's office. If physician is unavailable and it is an emergency, call 911 or go to the nearest emergency room. . Instructions / Follow-Up Instructions / Follow-Up ACTIVITY RECOMMENDATIONS: * Light activities. * You may walk outside, read, watch television. * You may notice redness on the white part of the eye and some blurry vision - this is normal. MEDICATIONS: Resume previous medications unless instructed otherwise by your surgeon. Start all eye drops at 9:30 am today: * Eye drops (today): Prednisone - one drop in operative eye every 2 hours while awake Ciprofloxacin - one drop in operative eye every 2 hours while awake Ilevro - one drop in operative eye daily SPECIAL CARE INSTRUCTIONS: * Tape plastic shield over eye to sleep at night. Call your doctor at with any concerns or problems. FOLLOW UP VISIT: Follow-up with Dr Petersen at [place] office as scheduled. Diet Recommendations Home Diet: no limitations Procedures Procedures Performed: Left Cataract Phacoemulsification With Intraocular Lens Implant Pending Studies Studies pending at discharge: no Medical Emergencies . Who to Call and When: Medical Emergencies: If at any time you feel your situation is an emergency, please call 911 immediately. . Non-Emergent Contact Non-Emergency issues call your: Surgeon . . "Provider Documentation" section prepared by Harrison Petersen. .
--- NOTE | 2017-04-15 07:46 | Anesthesia Progress Nt - [facility] ---
Anesthesia Post Op Note Date & Time Apr 15, 2017 at 07:46 Vital Signs Pain Intensity: 0 Vital Signs Past 12 Hours Date Time Temp Pulse Resp B/P (MAP) Pulse Ox O2 Delivery O2 Flow Rate FiO2 04/15/17 06:34 36.3 69 18 155/77 (103) 96 Room Air Notes Mental Status: alert / awake / arousable, participated in evaluation Pt Amnestic to Procedure: Yes Nausea / Vomiting: adequately controlled Pain: adequately controlled Airway Patency, RR, SpO2: stable & adequate BP & HR: stable & adequate Hydration State: stable & adequate Anesthetic Complications: no major complications apparent
[2017-04-15 08:17] VITALS: BP 133/76; PULSE 58; O2SAT 98
== END | disposition home or self-care (01) ==
LOC: X.SURG 06:22
PROVIDERS: ATTEND Ophthalmology
DX: H25.12 Age-related nuclear cataract, left eye (principal); I10 Essential (primary) hypertension; E78.00 Pure hypercholesterolemia, unspecified; M81.0 Age-related osteoporosis without current pathological fracture; I34.1 Nonrheumatic mitral (valve) prolapse; I51.9 Heart disease, unspecified

== ENCOUNTER → 2017-05-18 | Outpatient (CLI) | payer BC ==
[~2017-05-18] MED LIST changes: -500ML BSS 0.3ML EPI 1:1000PF IRRIG ONE; -ACETAMINOPHEN 325 MG TAB PO PRN; -AMVISC PLUS 0.8ML SYRINGE INT OCU ONE; -ATROPINE SULFATE 0.1 MG/ML 5ML SYR IV PRN; -BSS FLUSH ONE; -ENDOCOAT 0.85ML SYRINGE INT OCU ONE; -EpHEDrine SULFATE INJ 50 MG/ML AMP IV PRN; -EpINEphrine INJ 1MG/ML AMP 1 MG/ML AMP ONE; -LIDOCAINE 4% OP SOLN DROP CHARGE ONE; -LIDOCAINE 4% OP SOLN DROP CHARGE OPL SCH; -LIDOCAINE HCL 1% MPF 2 ML VIAL ONE; -MIDAZOLAM HCL 1 MG/ML 2ML VIAL ONE; -MIX: 4ML BSS 1ML EPI 1:1000 PF TOP ONE; -MOXIFLOXACIN OPH SOLN PER DROP CHARGE ONE; -POVIDONE-IODINE OP SOLN 30 ML BTL ONE; -PROPARACAINE 0.5% OP SOLN PER DROP CHARGE OPL SCH; -TOBRAMYCIN/DEXAMETHASONE OPH OINT PER APPLN CHARGE ONE
--- NOTE | 2017-05-18 15:35 | MAMMOGRAPHY REPORT ---
BILATERAL DIGITAL SCREENING MAMMOGRAM WITH CAD: 05/18/2017 CLINICAL HISTORY: Routine screening examination. TECHNIQUE: Bilateral CC, MLO, repeat MLO and axial views were obtained. Current study was also evalu ated with a Computer Aided Detection (CAD) system. COMPARISON: Comparison is made to exams dated: 05/16/2016 mammogram, 03/21/2015 mammogram, 03/20/2014 mammogram, 03/16/2012 mammogram, 03/17/2013 mammogram, and 03/14/2011 mammogram - [facility]. BREAST COMPOSITION: The tissue of both breasts is almost entirely fatty. 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 There are mild vascular calcification s in both breasts. No suspicious mass, architectural distortion or cluster of suspicious microcalcif ications is seen. IMPRESSION: ACR BI-RADS CATEGORY 2: BENIGN There is no mammographic evidence of malignancy, within the limitations of the exam. A 1 year screeni ng mammogram is recommended. The patient will receive written notification of the results. Approximately 10% of breast cancers are not detected with mammography. A negative mammographic report should not delay biopsy if a clinically suggestive mass is present. Preeti Mancilla M.D. ay/:05/18/2017 14:26:21 Project Executive: Nasra DOMINGUEZ(Aleida)(M), [facility] letter sent: Normal 1/2 BI-RADS Code: ACR BI-RADS Category 2: Benign
== END | disposition home or self-care (01) ==
LOC: C.MAMM 09:11
PROVIDERS: ATTEND Internal Medicine
DX: Z12.31 Encounter for screening mammogram for malignant neoplasm of breast (principal)

== ENCOUNTER → 2017-06-16 | Outpatient (CLI) | payer BC ==
[2017-06-16 12:54] LABS: BASO % 0.6 %; BASO ABS # 0.03 K/uL (0-0.2); COMPLETE YES; EOS % 1.9 %; HEMATOCRIT 43.6 % (37-47); IG% 0.2 %; LYMPH % 28.1 %; LYMPH ABS # 1.47 K/uL (1.2-3.4); MEAN CELL VOLUME 96.2 fL (80-100); MEAN CORPUSCULAR HEMOGLOBIN 31.3 pg (25-34); MEAN CORPUSCULAR HGB CONC 32.6 g/dl (32-36); MEAN PLATELET VOLUME 10.8 fL (7.4-10.4); MONO % 7.6 %; NEUT % 61.6 %; PLATELET COUNT 221 K/uL (130-400); RED BLOOD COUNT 4.53 M/uL (4.2-5.4); WHITE BLOOD COUNT 5.24 K/uL (4.8-10.8)
[2017-06-16 13:02] LABS: URINE APPEARANCE CLEAR (CLEAR); URINE BILIRUBIN NEG (NEG); URINE COLOR YELLOW; URINE NITRITE NEG (NEG); URINE PH 7.5 (4.5-7.5); URINE SPECIFIC GRAVITY 1.015 (1.000-1.030); UROBILINOGEN NEG (NEG); ZZUR CULT IF INDIC CLEAN CATCH NO
[2017-06-16 13:13] LABS: MANUAL MICROSCOPIC REQUIRED? NO; REVIEW REQ? NO
[2017-06-16 13:31] LABS: ALB/GLOB RATIO 0.9 (0.9-2); ALKALINE PHOSPHATASE 121 U/L (45-117); ALT/SGPT 29 U/L (12-78); AST/SGOT 27 U/L (15-37); BLOOD UREA NITROGEN 19 mg/dl (7-18); BUN/CREATININE RATIO 15.7 (10-20); CALCIUM 9.3 mg/dl (8.5-10.1); CARBON DIOXIDE 30 mmol/L (21-32); CHLORIDE 101 mmol/L (98-107); CREATININE 1.19 mg/dl (0.60-1.20); GLUCOSE 127 mg/dl (70-99); HDL CHOLESTEROL 88 mg/dl; POTASSIUM 3.8 mmol/L (3.5-5.1); SODIUM 138 mmol/L (136-145)
[2017-06-16 13:32] LABS: CHOLESTEROL 145 mg/dl (0-200); CHOLESTEROL/HDL RATIO 1.6; LDL CHOLESTEROL CALCULATED 44 mg/dl; TRIGLYCERIDES 66 mg/dl (0-150); VERY LOW DENSITY LIPOPROT CALC 13 mg/dl
== END | disposition home or self-care (01) ==
LOC: C.LABBFT 07:27
PROVIDERS: ATTEND Internal Medicine
DX: R73.03 Prediabetes (principal); E78.00 Pure hypercholesterolemia, unspecified; I25.10 Atherosclerotic heart disease of native coronary artery without angina pectoris

== ENCOUNTER → 2017-07-02 | Outpatient (CLI) | payer BC | END | disposition home or self-care (01) | LOC: C.LABSPEC 17:21 | PROVIDERS: ATTEND Internal Medicine | DX: J06.9 Acute upper respiratory infection, unspecified (principal) ==

== ENCOUNTER → 2017-10-27 | Outpatient (CLI) | payer BC ==
[2017-10-27 15:15] LABS: BLOOD UREA NITROGEN 17 mg/dl (7-18); CALCIUM 9.7 mg/dl (8.5-10.1); CARBON DIOXIDE 29 mmol/L (21-32); CREATININE 1.28 mg/dl (0.60-1.20); GLUCOSE 119 mg/dl (70-99); POTASSIUM 4.1 mmol/L (3.5-5.1); SODIUM 138 mmol/L (136-145)
[2017-10-28 05:43] LABS: HEMOGLOBIN A1C 5.8 % (4.5-5.6)
== END | disposition home or self-care (01) ==
LOC: C.LABBFT 08:04
PROVIDERS: ATTEND Internal Medicine
DX: I48.0 Paroxysmal atrial fibrillation (principal); R73.03 Prediabetes

== ENCOUNTER → 2017-11-11 | Outpatient (CLI) | payer BC ==
[2017-11-11 12:38] LABS: BLOOD UREA NITROGEN 12 mg/dl (7-18); CALCIUM 9.2 mg/dl (8.5-10.1); CARBON DIOXIDE 29 mmol/L (21-32); CREATININE 1.12 mg/dl (0.60-1.20); GLUCOSE 97 mg/dl (70-99); SODIUM 132 mmol/L (136-145)
== END | disposition home or self-care (01) ==
LOC: C.LABBFT 08:00
PROVIDERS: ATTEND Internal Medicine
DX: I10 Essential (primary) hypertension (principal); N28.9 Disorder of kidney and ureter, unspecified

== ENCOUNTER → 2017-11-25 | Outpatient (CLI) | payer BC ==
[2017-11-25 12:25] LABS: BLOOD UREA NITROGEN 16 mg/dl (7-18); CALCIUM 9.6 mg/dl (8.5-10.1); CARBON DIOXIDE 31 mmol/L (21-32); CREATININE 1.13 mg/dl (0.60-1.20); GLUCOSE 115 mg/dl (70-99); SODIUM 135 mmol/L (136-145)
== END | disposition home or self-care (01) ==
LOC: C.LABBFT 08:16
PROVIDERS: ATTEND Internal Medicine
DX: E87.1 Hypo-osmolality and hyponatremia (principal)

== ENCOUNTER 2020-11-03 10:01 | Inpatient (IN) ==
[2020-11-03] MEDS ORDERED: dilTIAZem HCl 5 MG/ML 5 ML VIAL IV STA ×2 (10:08→10:17)
[2020-11-03] MEDS ORDERED: dilTIAZem HCl 5 MG/ML 5 ML VIAL IV ONE (10:12)
[2020-11-03] MEDS ORDERED: SODIUM CHLORIDE 0.9% 1000ML 1,000 ML IV SCH (10:15)
[2020-11-03] MEDS ORDERED: STAT IV Infusion **Titration per Protocol STA (10:17)
[2020-11-03] MEDS ORDERED: dilTIAZem HCL 125 MG in DEXTROSE 5% 100 ML IV SCH (10:30)
[2020-11-03 10:31] LABS: iSTAT Creatinine 0.8 mg/dl (0.6-1.3); iSTAT Hemoglobin 15.3 g/dl (12.0-16.0); iSTAT Ionized Calcium 1.07 mmol/l (1.12-1.32); iSTAT Potassium 4.9 mmol/L (3.3-5.0)
[2020-11-03 10:47] LABS: Basophils # (auto) 0.01 K/uL (0-0.2); Basophils % (auto) 0.1 %; Hematocrit (blood only) 39.7 % (37-47); Hemoglobin 14.4 g/dL (12.0-16.0); Immature Granulocytes # (auto) 0.01 K/uL (0.00-0.02); Immature Granulocytes % (auto) 0.1 %; Lymphocytes # (auto) 1.06 K/uL (1.2-3.4); Lymphocytes % (auto) 12.7 %; Mean Corpuscular Hemoglobin 32.5 pg (25-34); Mean Corpuscular Hgb Conc 36.3 g/dL (32-36); Mean Corpuscular Volume 89.6 fL (80-100); Mean Platelet Volume 9.9 fL (7.4-10.4); Monocytes # (auto) 0.59 K/uL (0.11-0.59); Monocytes % (auto) 7.1 %; Neutrophils # (auto) 6.67 K/uL (1.4-6.5); Platelet Count 241 K/uL (130-400); RDW Coefficient of Variation 13.9 % (11.5-14.5); RDW Standard Deviation 45.9 fL (36.4-46.3); Red Blood Count 4.43 M/uL (4.2-5.4); White Blood Count 8.34 K/uL (4.8-10.8)
[2020-11-03 11:00] LABS: Partial Thromboplastin Ratio 1.1; Partial Thromboplastin Time 27.7 Seconds (21.0-31.0); Prothrombin Time 10.3 Seconds (9.0-12.0)
--- NOTE | 2020-11-03 11:00 | Emergency Department Note ---
History of Present Illness General Chief complaint: Weakness Time Seen by Provider: 11/03/20 10:05 Source: EMS History of Present Illness Provider complaint: Recurrent falls weakness Onset (ago): day(s) 5 Location: head, neck, chest, upper extremity and left Radiation: non-radiation Severity: moderate Pain Consistency: + constant Quality: + aching Relieved By: + none Exacerbated By: + none Associated symptoms: + chest pain, + headaches, + nausea/vomiting and + weakness 85-year-old female on qu presents emergency department for fall and weakness. Per EMS patient fell on Thursday. Patient states she fell on concrete and hit her head. There was possible LOC. Patient reports she has been having difficulty walking since then. Patient states she fell yesterday and today also. Per EMS patient had a temperature of 101. Patient reports she is having difficulty walking. She reports head pain, neck pain, chest pain, left upper extremity pain. Home Medications Medication Instructions Recorded Confirmed Type atorvastatin 40 mg tablet 40 mg PO HS #90 tab 12/02/19 11/03/20 Rx Qunol with Turmeric 1,000 mg PO DAILY 12/06/19 11/03/20 History aspirin 81 mg tablet,delayed 81 mg PO DAILY 12/06/19 11/03/20 History release multivitamin 1 tab PO DAILY 12/06/19 11/03/20 History coenzyme Q10 100 mg capsule 100 mg PO DAILY 12/15/19 11/03/20 History losartan 100 1 tab PO DAILY #90 tab 05/01/20 11/03/20 Rx mg-hydrochlorothiazide 25 mg tablet apixaban 5 mg tablet 5 mg PO BID #180 tab 07/02/20 11/03/20 Rx metoprolol tartrate 25 mg tablet 25 mg PO BID #180 tab 08/01/20 11/03/20 Rx calcium carbonate-vitamin D3 1 tab PO DAILY 11/03/20 11/03/20 History [Calcium 600 + D(3)] [id number] 1 cap PO DAILY 11/03/20 11/03/20 History [krill oil] Allergies Allergy/AdvReac Type Severity Reaction Status Date / Time No Known Allergies Allergy Verified 11/03/20 11:35 Past Med/Surg History Medical History AF (paroxysmal atrial fibrillation) Aortic stenosis CAD (coronary artery disease) Carotid artery stenosis Hypercholesterolemia Hypertension Hyponatremia Mitral regurgitation NSTEMI (non-ST elevated myocardial infarction) Prediabetes Renal insufficiency Surgical History H/O aortic valve replacement bio-prosthetic valve H/O shoulder surgery Left, 1989' History of bladder surgery suspension History of total abdominal hysterectomy and bilateral salpingo-oophorectomy 1976 S/P CABG x 2 (~12/15/16) Family History Mother Cancer Father COPD (chronic obstructive pulmonary disease) Social History Smoking Status: Never smoker Second Hand Exposure: No; Do You Dip or Chew Tobacco: No; Tobacco Cessation Education Requested by Patient: No Hx Alcohol Use: No Hx Substance Use: No Preferred Language: Jamaican Communication Ability: Effective Visual Impairment: No Limitations Hearing Ability: Normal Respite Coordinator Required: No Beliefs That Will Affect Care: None marital status: / Current Living Situation: Alone current occupational status: retired Other Information That Helps Us Care for You: No Feels Safe at Home: Yes Safety Concerns: Feels Safe At This Time Childhood Exposure to Second-Hand Smoke: No caffeine: Yes during the past year weight has: remained stable Dental Care, Regularly: Yes Physical Activity Frequency: Daily Seatbelt Use: always Sunscreen Use: No Assistive Devices: None Review of Systems A total of 10 systems reviewed and were otherwise negative Physical Exam Vital Signs Vital Signs - 24 hr 11/03/20 10:05 11/03/20 10:07 11/03/20 10:14 Temperature Temperature Source Pulse Rate 152 H 161 H 157 H Pulse Rate from SpO2 Sensor 129 H 145 H Pulse Rhythm Respiratory Rate 21 20 18 Respiratory Effort / Characteristics Non-Labored Respiratory Depth Normal Blood Pressure 132/85 127/74 Blood Pressure Mean 100 91 Pulse Oximetry 96 96 Oxygen Delivery Method Room Air Oxygen Flow Rate Sepsis Recent Fever Within 48 Hours Sepsis New/Unexplained Change in Mental Status Sepsis Action Taken by Nursing 11/03/20 10:16 11/03/20 10:18 11/03/20 10:20 Temperature Temperature Source Pulse Rate 155 H 145 H 128 H Pulse Rate from SpO2 Sensor 146 H 92 H 119 H Pulse Rhythm Respiratory Rate 17 20 19 Respiratory Effort / Characteristics Respiratory Depth Blood Pressure 139/96 146/85 H Blood Pressure Mean 110 105 Pulse Oximetry 96 94 93 Oxygen Delivery Method Oxygen Flow Rate Sepsis Recent Fever Within 48 Hours Sepsis New/Unexplained Change in Mental Status Sepsis Action Taken by Nursing 11/03/20 10:25 11/03/20 10:26 11/03/20 10:30 Temperature 37.5 C Temperature Source Oral Pulse Rate 118 H 155 H 107 H Pulse Rate from SpO2 Sensor 118 H 104 H Pulse Rhythm Irregular Respiratory Rate 18 16 21 Respiratory Effort / Characteristics Non-Labored Respiratory Depth Normal Blood Pressure 153/123 H 132/85 148/65 H Blood Pressure Mean 133 100 92 Pulse Oximetry 95 95 94 Oxygen Delivery Method Room Air Oxygen Flow Rate Sepsis Recent Fever Within 48 Hours No Sepsis New/Unexplained Change in Mental Status No Sepsis Action Taken by Nursing No Action Required 11/03/20 10:31 11/03/20 10:32 11/03/20 10:35 Temperature Temperature Source Pulse Rate 75 Pulse Rate from SpO2 Sensor 82 Pulse Rhythm Respiratory Rate 16 20 Respiratory Effort / Characteristics Non-Labored Respiratory Depth Blood Pressure 117/63 Blood Pressure Mean 81 Pulse Oximetry 95 96 Oxygen Delivery Method Room Air Room Air Oxygen Flow Rate 95 Sepsis Recent Fever Within 48 Hours Sepsis New/Unexplained Change in Mental Status Sepsis Action Taken by Nursing 11/03/20 10:40 11/03/20 11:08 11/03/20 11:13 Temperature Temperature Source Pulse Rate 72 94 H 102 H Pulse Rate from SpO2 Sensor 81 94 H Pulse Rhythm Respiratory Rate 19 16 Respiratory Effort / Characteristics Respiratory Depth Blood Pressure 123/59 L 130/103 H Blood Pressure Mean 80 112 Pulse Oximetry 94 96 Oxygen Delivery Method Oxygen Flow Rate Sepsis Recent Fever Within 48 Hours Sepsis New/Unexplained Change in Mental Status Sepsis Action Taken by Nursing 11/03/20 11:15 11/03/20 11:16 11/03/20 11:26 Temperature Temperature Source Pulse Rate 88 77 Pulse Rate from SpO2 Sensor 87 70 Pulse Rhythm Respiratory Rate 21 19 Respiratory Effort / Characteristics Non-Labored Respiratory Depth Normal Blood Pressure 150/68 H Blood Pressure Mean 95 Pulse Oximetry 96 96 Oxygen Delivery Method Room Air Oxygen Flow Rate Sepsis Recent Fever Within 48 Hours Sepsis New/Unexplained Change in Mental Status Sepsis Action Taken by Nursing 11/03/20 11:30 11/03/20 11:31 11/03/20 11:45 Temperature Temperature Source Pulse Rate 78 79 100 H Pulse Rate from SpO2 Sensor 71 87 91 H Pulse Rhythm Respiratory Rate 20 23 20 Respiratory Effort / Characteristics Respiratory Depth Blood Pressure 174/89 H Blood Pressure Mean 117 Pulse Oximetry 96 97 97 Oxygen Delivery Method Oxygen Flow Rate Sepsis Recent Fever Within 48 Hours Sepsis New/Unexplained Change in Mental Status Sepsis Action Taken by Nursing 11/03/20 11:46 11/03/20 12:00 11/03/20 12:02 Temperature Temperature Source Pulse Rate 83 84 84 Pulse Rate from SpO2 Sensor 81 79 Pulse Rhythm Respiratory Rate 21 16 18 Respiratory Effort / Characteristics Respiratory Depth Blood Pressure 211/94 H Blood Pressure Mean 133 149 Pulse Oximetry 98 97 Oxygen Delivery Method Oxygen Flow Rate Sepsis Recent Fever Within 48 Hours Sepsis New/Unexplained Change in Mental Status Sepsis Action Taken by Nursing 11/03/20 12:15 11/03/20 12:30 11/03/20 12:31 Temperature Temperature Source Pulse Rate 96 H 94 H 117 H Pulse Rate from SpO2 Sensor 90 94 H 112 H Pulse Rhythm Respiratory Rate 22 18 20 Respiratory Effort / Characteristics Respiratory Depth Blood Pressure 186/94 H Blood Pressure Mean 124 171 Pulse Oximetry 99 97 92 Oxygen Delivery Method Oxygen Flow Rate Sepsis Recent Fever Within 48 Hours Sepsis New/Unexplained Change in Mental Status Sepsis Action Taken by Nursing 11/03/20 12:32 11/03/20 12:55 11/03/20 12:57 Temperature Temperature Source Pulse Rate 127 H 144 H Pulse Rate from SpO2 Sensor 117 H Pulse Rhythm Respiratory Rate 21 Respiratory Effort / Characteristics Respiratory Depth Normal Blood Pressure Blood Pressure Mean Pulse Oximetry 94 Oxygen Delivery Method Room Air Oxygen Flow Rate Sepsis Recent Fever Within 48 Hours Sepsis New/Unexplained Change in Mental Status Sepsis Action Taken by Nursing 11/03/20 12:58 11/03/20 13:00 11/03/20 13:01 Temperature Temperature Source Pulse Rate 105 H 118 H 119 H Pulse Rate from SpO2 Sensor 106 H 119 H 122 H Pulse Rhythm Respiratory Rate 20 21 17 Respiratory Effort / Characteristics Respiratory Depth Blood Pressure 143/107 H 147/107 H Blood Pressure Mean 119 120 Pulse Oximetry 98 98 99 Oxygen Delivery Method Oxygen Flow Rate Sepsis Recent Fever Within 48 Hours Sepsis New/Unexplained Change in Mental Status Sepsis Action Taken by Nursing 11/03/20 13:15 11/03/20 13:16 11/03/20 13:30 Temperature Temperature Source Pulse Rate 151 H 114 H 108 H Pulse Rate from SpO2 Sensor 141 H 112 H 119 H Pulse Rhythm Respiratory Rate 17 19 19 Respiratory Effort / Characteristics Respiratory Depth Blood Pressure 154/92 H Blood Pressure Mean 112 Pulse Oximetry 97 97 96 Oxygen Delivery Method Oxygen Flow Rate Sepsis Recent Fever Within 48 Hours Sepsis New/Unexplained Change in Mental Status Sepsis Action Taken by Nursing 11/03/20 13:31 11/03/20 13:43 Temperature Temperature Source Pulse Rate 116 H 115 H Pulse Rate from SpO2 Sensor 126 H Pulse Rhythm Respiratory Rate 15 Respiratory Effort / Characteristics Respiratory Depth Blood Pressure 167/88 H 167/88 H Blood Pressure Mean 114 Pulse Oximetry 99 Oxygen Delivery Method Oxygen Flow Rate Sepsis Recent Fever Within 48 Hours Sepsis New/Unexplained Change in Mental Status Sepsis Action Taken by Nursing Physical Exam GENERAL: She is oriented to person, place, and time. She appears well-developed and well-nourished. She does not appear distressed. HENT: Exam performed. -Head: Patient has large hematoma and ecchymosis over the occipital area. -Right Ear: External ear normal. No mastoid tenderness. -Left Ear: External ear normal. No mastoid tenderness. -Mouth/Throat: The oropharynx is clear and moist. No trismus in the jaw. No dental abscesses or uvula swelling. No oropharyngeal exudate or tonsillar abscesses. EYES: Conjunctivae and EOM are normal. Pupils are equal, round, and reactive to light. Right eye exhibits no discharge. Left eye exhibits no discharge. No scleral icterus. NECK: Normal range of motion. Neck supple. No JVD present. No spinous process tenderness present. No carotid bruit present. No rigidity. No tracheal deviation and normal range of motion present. No Brudzinski's sign and no Kernig's sign noted. Patient has diffuse ecchymosis over her posterior neck. CV: Tachycardic rate, irregular rhythm, normal heart sounds and intact distal pulses. There is no peripheral edema. Palpable radial pulses bue. PULM/CHEST: Effort normal and breath sounds normal. No respiratory distress. No stridor. She has no wheezes. She has no rales. -Chest Wall: There is ecchymosis over the anterior chest. ABD: The abdomen is soft. There is no tenderness. MUSC/SKEL: Pelvis stable. Normal range of motion. Ecchymosis over the left upper extremity. NEURO: Motor and sensation grossly intact. Course Course 1005: The patient was evaluated in room C2. A complete history and physical exam was performed Cardiac monitoring: An order was placed for continuous cardiac monitoring. The monitor shows a rate of 140-160 with atrial fibrillation rhythm Patient was found to be in A. fib with RVR. Her blood pressure was stable. IV fluids were started. Patient was given Cardizem 20 mg bolus which did not significantly improve her ventricular rate. Patient's blood pressure was stable status post Cardizem 20 mg IV push. Patient was given a repeat bolus of Cardizem 25 mg IV push which improved her ventricular rate. Patient blood pressure was stable after the 2 Cardizem boluses. Patient be started on Cardizem drip. Her bedside creatinine POC is within normal limits. Patient was taken for CT to rule out traumatic injury. 1145: Vital signs stable on Cardizem drip. Imaging shows no traumatic injury. Patient troponin is elevated 0.197. Patient does not have at this time. We will trend the troponins. Covid negative. Discussed case with [facility] hospitalist and the patient will be admitted to Dr. Jacobs team Administered Medications Metoprolol Tartrate (Metoprolol Tartrate 1 Mg/Ml Vial) 5 mg IV Q2H PRN PRN Reason: HR > 110 Stop: 12/03/20 13:43 Last Admin: 11/03/20 17:45 Dose: 5 mg Documented by: [id number] Discontinued Medications Diltiazem HCl (Diltiazem Hcl 5 Mg/Ml 5 Ml Vial) Confirm Administered Dose 25 mg IV .STK-MED ONE Stop: 11/03/20 10:13 Last Increment: 11/03/20 10:15 Dose: 20 mg Documented by: [id number] Cosigned by: [id number] Diltiazem HCl (Diltiazem Hcl 5 Mg/Ml 5 Ml Vial) 20 mg IV NOW STA Stop: 11/03/20 10:09 Last Admin: 11/03/20 10:15 Dose: Not Given Documented by: [id number] Diltiazem HCl (Diltiazem Hcl 5 Mg/Ml 5 Ml Vial) 25 mg IV NOW STA Stop: 11/03/20 10:18 Last Admin: 11/03/20 10:22 Dose: 25 mg Documented by: [id number] Cosigned by: [id number] Sodium Chloride (Nss 1000ml) 1,000 mls @ 125 mls/hr IV .Q8H NUVIA Stop: 12/03/20 10:14 Last Infusion: 11/03/20 13:47 Dose: 0 mls/hr Documented by: [id number] Admin: 11/03/20 10:17 Dose: 125 mls/hr Documented by: [id number] Diltiazem HCl 125 mg/ Dextrose 125 mls @ 5 mls/hr IV .Q24H NUVIA; Protocol Stop: 12/03/20 10:29 Last Admin: 11/03/20 16:02 Dose: Not Given Documented by: [id number] Ioversol (Ioversol 100ml) 90 ml IV ONCE ONE Stop: 11/03/20 11:15 Last Admin: 11/03/20 11:14 Dose: 90 ml Documented by: [id number] Metoprolol Tartrate (Metoprolol Tartrate 1 Mg/Ml Vial) 5 mg IV NOW STA Stop: 11/03/20 13:19 Last Admin: 11/03/20 13:43 Dose: 5 mg Documented by: [id number] Metoprolol Tartrate (Metoprolol Tartrate 25 Mg Tab) 25 mg PO ONE ONE Stop: 11/03/20 13:21 Last Admin: 11/03/20 13:42 Dose: 25 mg Documented by: [id number] Miscellaneous (Stat Iv Infusion Titration Per Protocol) 1 ea N/A NOW STA Stop: 11/03/20 10:18 Last Admin: 11/03/20 13:37 Dose: Not Given Documented by: [id number] Critical Care Time Critical Care Time: Yes Total Critical Care Time: 60 I have personally spent greater than 60 minutes of critical care time in the direct management of this patient. This includes bedside care, interpretation of diagnostic studies, and testing, discussion with consultants, patient, and family members, and other required patient management activities. This 60 minutes is in excess of all separately billable procedures. Medical Decision Making Laboratory Data Result diagrams: 11/03/20 10:36 11/03/20 10:36 Lab Results 11/03/20 11/03/20 11/03/20 Range/Units 10:18 10:25 10:25 WBC (4.8-10.8) K/uL RBC (4.2-5.4) M/uL Hgb (12.0-16.0) g/dL POC Hgb 15.3 (12.0-16.0) g/dl Hct (37-47) % POC Hct 45 (37-47) % MCV (80-100) fL MCH (25-34) pg MCHC (32-36) g/dL RDW Std Deviation (36.4-46.3) fL RDW Coeff of Fiona (11.5-14.5) % Plt Count (130-400) K/uL MPV (7.4-10.4) fL Immature Gran % (Auto) % Neut % (Auto) % Lymph % (Auto) % [place] % (Auto) % Eos % (Auto) % Baso % (Auto) % Neut # (Auto) (1.4-6.5) K/uL Lymph # (Auto) (1.2-3.4) K/uL [place] # (Auto) (0.11-0.59) K/uL Eos # (Auto) (0-0.5) K/uL Baso # (Auto) (0-0.2) K/uL Immature Gran # (Auto) (0.00-0.02) K/uL PT (9.0-12.0) Seconds INR (0.9-1.1) APTT (21.0-31.0) Seconds PTT Ratio POC Sodium 129 L (135-144) mmol/L Sodium (136-145) mmol/L POC Potassium 4.9 (3.3-5.0) mmol/L Potassium (3.5-5.1) mmol/L POC Chloride 96 L (101-112) mmol/L Chloride (98-107) mmol/L Carbon Dioxide (21-32) mmol/L POC Total CO2 30 (24-31) mmol/L Anion Gap (3-11) POC Anion Gap 8.0 L (16-25) mmol/L POC BUN 16 (7-18) mg/dl BUN (7-18) mg/dl Creatinine (0.6-1.2) mg/dl POC Creatinine 0.8 (0.6-1.3) mg/dl Est Cr Clr Drug Dosing ml/min Est GFR ( Amer) Est GFR (Non-Af Amer) BUN/Creatinine Ratio (10-20) Glucose (70-99) mg/dl POC Glucose (other) 179 H (70-99) mg/dl Lactate (0.4-2.0) mmol/L Calcium (8.5-10.1) mg/dl POC Ioniz Calcium [place] 1.07 L (1.12-1.32) mmol/l Magnesium (1.8-2.4) mg/dl Total Bilirubin (0.2-1) mg/dl AST (15-37) U/L ALT (12-78) U/L Alkaline Phosphatase (45-117) U/L Total Creatine Kinase (26-192) U/L Troponin I (0-0.045) ng/ml Total Protein (6.4-8.2) gm/dl Albumin (3.4-5.0) gm/dl Globulin (2.5-4.0) gm/dl Albumin/Globulin Ratio (0.9-2) Procalcitonin (0-0.5) ng/ml Urine Color Urine Appearance (Clear) Urine pH (4.5-7.5) Ur Specific [place] (1.000-1.030) Urine Protein (Negative) Urine Glucose (UA) (Negative) Urine Ketones (Negative) Urine Blood (Negative) Urine Nitrite (Negative) Urine Bilirubin (Negative) Urine Urobilinogen (Negative) Ur Leukocyte Esterase (Negative) COVID-19 Eval Order CovFluRsv at [facility] SARS-CoV-2 (PCR) NEGATIVE (Negative) Influenza Type A (PCR) Negative (Neg) Influenza Type B (PCR) Negative (Neg) RSV (RT-PCR) Negative (Neg) Blood Type Antibody Screen 11/03/20 11/03/20 11/03/20 Range/Units 10:36 10:36 10:36 WBC (4.8-10.8) K/uL RBC (4.2-5.4) M/uL Hgb (12.0-16.0) g/dL POC Hgb (12.0-16.0) g/dl Hct (37-47) % POC Hct (37-47) % MCV (80-100) fL MCH (25-34) pg MCHC (32-36) g/dL RDW Std Deviation (36.4-46.3) fL RDW Coeff of Fiona (11.5-14.5) % Plt Count (130-400) K/uL MPV (7.4-10.4) fL Immature Gran % (Auto) % Neut % (Auto) % Lymph % (Auto) % [place] % (Auto) % Eos % (Auto) % Baso % (Auto) % Neut # (Auto) (1.4-6.5) K/uL Lymph # (Auto) (1.2-3.4) K/uL [place] # (Auto) (0.11-0.59) K/uL Eos # (Auto) (0-0.5) K/uL Baso # (Auto) (0-0.2) K/uL Immature Gran # (Auto) (0.00-0.02) K/uL PT (9.0-12.0) Seconds INR (0.9-1.1) APTT (21.0-31.0) Seconds PTT Ratio POC Sodium (135-144) mmol/L Sodium 131 L (136-145) mmol/L POC Potassium (3.3-5.0) mmol/L Potassium 3.5 (3.5-5.1) mmol/L POC Chloride (101-112) mmol/L Chloride 97 L (98-107) mmol/L Carbon Dioxide 26 (21-32) mmol/L POC Total CO2 (24-31) mmol/L Anion Gap 8.0 (3-11) POC Anion Gap (16-25) mmol/L POC BUN (7-18) mg/dl BUN 13 (7-18) mg/dl Creatinine 0.86 (0.6-1.2) mg/dl POC Creatinine (0.6-1.3) mg/dl Est Cr Clr Drug Dosing 52.8 ml/min Est GFR ( Amer) 72.4 Est GFR (Non-Af Amer) 62.5 BUN/Creatinine Ratio 15.4 (10-20) Glucose 177 H (70-99) mg/dl POC Glucose (other) (70-99) mg/dl Lactate (0.4-2.0) mmol/L Calcium 9.0 (8.5-10.1) mg/dl POC Ioniz Calcium [place] (1.12-1.32) mmol/l Magnesium 2.1 (1.8-2.4) mg/dl Total Bilirubin 0.7 (0.2-1) mg/dl AST 17 (15-37) U/L ALT 21 (12-78) U/L Alkaline Phosphatase 105 (45-117) U/L Total Creatine Kinase 42 (26-192) U/L Troponin I 0.197 H* (0-0.045) ng/ml Total Protein 6.9 (6.4-8.2) gm/dl Albumin 3.3 L (3.4-5.0) gm/dl Globulin 3.6 (2.5-4.0) gm/dl Albumin/Globulin Ratio 0.9 (0.9-2) Procalcitonin < 0.05 (0-0.5) ng/ml Urine Color Urine Appearance (Clear) Urine pH (4.5-7.5) Ur Specific [place] (1.000-1.030) Urine Protein (Negative) Urine Glucose (UA) (Negative) Urine Ketones (Negative) Urine Blood (Negative) Urine Nitrite (Negative) Urine Bilirubin (Negative) Urine Urobilinogen (Negative) Ur Leukocyte Esterase (Negative) COVID-19 Eval Order SARS-CoV-2 (PCR) (Negative) Influenza Type A (PCR) (Neg) Influenza Type B (PCR) (Neg) RSV (RT-PCR) (Neg) Blood Type O Positive Antibody Screen NEGATIVE 11/03/20 11/03/20 11/03/20 Range/Units 10:36 10:36 10:36 WBC 8.34 (4.8-10.8) K/uL RBC 4.43 (4.2-5.4) M/uL Hgb 14.4 (12.0-16.0) g/dL POC Hgb (12.0-16.0) g/dl Hct 39.7 (37-47) % POC Hct (37-47) % MCV 89.6 (80-100) fL MCH 32.5 (25-34) pg MCHC 36.3 H (32-36) g/dL RDW Std Deviation 45.9 (36.4-46.3) fL RDW Coeff of Fiona 13.9 (11.5-14.5) % Plt Count 241 (130-400) K/uL MPV 9.9 (7.4-10.4) fL Immature Gran % (Auto) 0.1 % Neut % (Auto) 80.0 % Lymph % (Auto) 12.7 % [place] % (Auto) 7.1 % Eos % (Auto) 0.0 % Baso % (Auto) 0.1 % Neut # (Auto) 6.67 H (1.4-6.5) K/uL Lymph # (Auto) 1.06 L (1.2-3.4) K/uL [place] # (Auto) 0.59 (0.11-0.59) K/uL Eos # (Auto) 0.00 (0-0.5) K/uL Baso # (Auto) 0.01 (0-0.2) K/uL Immature Gran # (Auto) 0.01 (0.00-0.02) K/uL PT 10.3 (9.0-12.0) Seconds INR 1.0 (0.9-1.1) APTT 27.7 (21.0-31.0) Seconds PTT Ratio 1.1 POC Sodium (135-144) mmol/L Sodium (136-145) mmol/L POC Potassium (3.3-5.0) mmol/L Potassium (3.5-5.1) mmol/L POC Chloride (101-112) mmol/L Chloride (98-107) mmol/L Carbon Dioxide (21-32) mmol/L POC Total CO2 (24-31) mmol/L Anion Gap (3-11) POC Anion Gap (16-25) mmol/L POC BUN (7-18) mg/dl BUN (7-18) mg/dl Creatinine (0.6-1.2) mg/dl POC Creatinine (0.6-1.3) mg/dl Est Cr Clr Drug Dosing ml/min Est GFR ( Amer) Est GFR (Non-Af Amer) BUN/Creatinine Ratio (10-20) Glucose (70-99) mg/dl POC Glucose (other) (70-99) mg/dl Lactate 1.9 (0.4-2.0) mmol/L Calcium (8.5-10.1) mg/dl POC Ioniz Calcium [place] (1.12-1.32) mmol/l Magnesium (1.8-2.4) mg/dl Total Bilirubin (0.2-1) mg/dl AST (15-37) U/L ALT (12-78) U/L Alkaline Phosphatase (45-117) U/L Total Creatine Kinase (26-192) U/L Troponin I (0-0.045) ng/ml Total Protein (6.4-8.2) gm/dl Albumin (3.4-5.0) gm/dl Globulin (2.5-4.0) gm/dl Albumin/Globulin Ratio (0.9-2) Procalcitonin (0-0.5) ng/ml Urine Color Urine Appearance (Clear) Urine pH (4.5-7.5) Ur Specific [place] (1.000-1.030) Urine Protein (Negative) Urine Glucose (UA) (Negative) Urine Ketones (Negative) Urine Blood (Negative) Urine Nitrite (Negative) Urine Bilirubin (Negative) Urine Urobilinogen (Negative) Ur Leukocyte Esterase (Negative) COVID-19 Eval Order SARS-CoV-2 (PCR) (Negative) Influenza Type A (PCR) (Neg) Influenza Type B (PCR) (Neg) RSV (RT-PCR) (Neg) Blood Type Antibody Screen 11/03/20 Range/Units 12:45 WBC (4.8-10.8) K/uL RBC (4.2-5.4) M/uL Hgb (12.0-16.0) g/dL POC Hgb (12.0-16.0) g/dl Hct (37-47) % POC Hct (37-47) % MCV (80-100) fL MCH (25-34) pg MCHC (32-36) g/dL RDW Std Deviation (36.4-46.3) fL RDW Coeff of Fiona (11.5-14.5) % Plt Count (130-400) K/uL MPV (7.4-10.4) fL Immature Gran % (Auto) % Neut % (Auto) % Lymph % (Auto) % [place] % (Auto) % Eos % (Auto) % Baso % (Auto) % Neut # (Auto) (1.4-6.5) K/uL Lymph # (Auto) (1.2-3.4) K/uL [place] # (Auto) (0.11-0.59) K/uL Eos # (Auto) (0-0.5) K/uL Baso # (Auto) (0-0.2) K/uL Immature Gran # (Auto) (0.00-0.02) K/uL PT (9.0-12.0) Seconds INR (0.9-1.1) APTT (21.0-31.0) Seconds PTT Ratio POC Sodium (135-144) mmol/L Sodium (136-145) mmol/L POC Potassium (3.3-5.0) mmol/L Potassium (3.5-5.1) mmol/L POC Chloride (101-112) mmol/L Chloride (98-107) mmol/L Carbon Dioxide (21-32) mmol/L POC Total CO2 (24-31) mmol/L Anion Gap (3-11) POC Anion Gap (16-25) mmol/L POC BUN (7-18) mg/dl BUN (7-18) mg/dl Creatinine (0.6-1.2) mg/dl POC Creatinine (0.6-1.3) mg/dl Est Cr Clr Drug Dosing ml/min Est GFR ( Amer) Est GFR (Non-Af Amer) BUN/Creatinine Ratio (10-20) Glucose (70-99) mg/dl POC Glucose (other) (70-99) mg/dl Lactate (0.4-2.0) mmol/L Calcium (8.5-10.1) mg/dl POC Ioniz Calcium [place] (1.12-1.32) mmol/l Magnesium (1.8-2.4) mg/dl Total Bilirubin (0.2-1) mg/dl AST (15-37) U/L ALT (12-78) U/L Alkaline Phosphatase (45-117) U/L Total Creatine Kinase (26-192) U/L Troponin I (0-0.045) ng/ml Total Protein (6.4-8.2) gm/dl Albumin (3.4-5.0) gm/dl Globulin (2.5-4.0) gm/dl Albumin/Globulin Ratio (0.9-2) Procalcitonin (0-0.5) ng/ml Urine Color Yellow Urine Appearance Clear (Clear) Urine pH 6.5 (4.5-7.5) Ur Specific [place] 1.030 (1.000-1.030) Urine Protein Negative (Negative) Urine Glucose (UA) Negative (Negative) Urine Ketones Negative (Negative) Urine Blood Negative (Negative) Urine Nitrite Negative (Negative) Urine Bilirubin Negative (Negative) Urine Urobilinogen Negative (Negative) Ur Leukocyte Esterase Negative (Negative) COVID-19 Eval Order SARS-CoV-2 (PCR) (Negative) Influenza Type A (PCR) (Neg) Influenza Type B (PCR) (Neg) RSV (RT-PCR) (Neg) Blood Type Antibody Screen Imaging Data Radiologist's Impression: Abdomen/Pelvis CT 11/03/20 10:[address] WITH CONTRAST, ABDOMEN AND PELVIS CT WITH INTRAVENOUS CONTRAST CT DOSE: HISTORY: Right-sided chest and right-sided abdominal pain. fall on eliquis TECHNIQUE: Multiaxial CT images of the chest, abdomen, and pelvis were performed following the intravenous administration of contrast. A dose lowering technique was utilized adhering to the principles of ALARA. COMPARISON: None. FINDINGS: Chest CT: There are poststernotomy changes. No fractures within the visualized osseous structures of the chest. No mediastinal hematoma or lymphadenopathy. The heart is top normal in size. No pleural or pericardial effusions. Normal caliber esophagus. Moderate calcified plaque within the normal caliber thoracic aorta. No evidence for an aortic dissection. The central pulmonary arteries are patent. No pneumothorax. The central airways are patent. A few small linear densities within the lung bases consistent with subsegmental atelectasis/scarring. No focal lung consolidations. Punctate calcified granuloma within the right lung apex. Abdomen/pelvis CT: No pneumoperitoneum. No pneumatosis. No acute fractures within the visualized osseous structures. The liver, gallbladder, adrenal glands, pancreas, and kidneys are within normal limits. There is a punctate calcified granuloma within the spleen. Tiny fat-containing umbilical hernia. No pelvic free fluid. The bladder is unremarkable. Prior hysterectomy. No retroperitoneal hematoma or lymphadenopathy. Extensive calcified plaque within the normal caliber abdominal aorta. No bowel wall thickening or obstruction. Colonic diverticulosis. No evidence for acute diverticulitis. Normal appendix. IMPRESSION: 1. No acute traumatic process within the chest, abdomen, or pelvis. 2. Additional findings as described above. ACT 112: Negative or not required by law. Electronically signed by: Jonathan Bardales M.D. 11/03/2020 11:[address] 11/03/20 10:[address] DOSE: 3835.75 mGy.cm HISTORY: Neck pain. fall on eliquis TECHNIQUE: Multiaxial CT images of the cervical spine were performed and reformatted in the sagittal and coronal plane without the use of contrast. A dose lowering technique was utilized adhering to the principles of ALARA. COMPARISON: None. FINDINGS: No fractures. No subluxation. Prevertebral soft tissues and the C1-C2 interval are intact. No pneumothorax. IMPRESSION: No fractures within the cervical spine. ACT 112: Negative or not required by law. Electronically signed by: Jonathan Bardales M.D. 11/03/2020 11:[address] 11/03/20 10:[address] WITH CONTRAST, ABDOMEN AND PELVIS CT WITH INTRAVENOUS CONTRAST CT DOSE: HISTORY: Right-sided chest and right-sided abdominal pain. fall on eliquis TECHNIQUE: Multiaxial CT images of the chest, abdomen, and pelvis were performed following the intravenous administration of contrast. A dose lowering technique was utilized adhering to the principles of ALARA. COMPARISON: None. FINDINGS: Chest CT: There are poststernotomy changes. No fractures within the visualized osseous structures of the chest. No mediastinal hematoma or lymphadenopathy. The heart is top normal in size. No pleural or pericardial effusions. Normal caliber esophagus. Moderate calcified plaque within the normal caliber thoracic aorta. No evidence for an aortic dissection. The central pulmonary arteries are patent. No pneumothorax. The central airways are patent. A few small linear densities within the lung bases consistent with subsegmental atelectasis/scarring. No focal lung consolidations. Punctate calcified granuloma within the right lung apex. Abdomen/pelvis CT: No pneumoperitoneum. No pneumatosis. No acute fractures wi thin the visualized osseous structures. The liver, gallbladder, adrenal glands, pancreas, and kidneys are within normal limits. There is a punctate calcified granuloma within the spleen. Tiny fat-containing umbilical hernia. No pelvic free fluid. The bladder is unremarkable. Prior hysterectomy. No retroperitoneal hematoma or lymphadenopathy. Extensive calcified plaque within the normal caliber abdominal aorta. No bowel wall thickening or obstruction. Colonic diverticulosis. No evidence for acute diverticulitis. Normal appendix. IMPRESSION: 1. No acute traumatic process within the chest, abdomen, or pelvis. 2. Additional findings as described above. ACT 112: Negative or not required by law. Electronically signed by: Jonathan Bardales M.D. 11/03/2020 11:[address] 11/03/20 10:[address] DOSE: HISTORY: fall on eliquis TECHNIQUE: Multiaxial CT images of the head were performed without the use of intravenous contrast. Automated exposure control was utilized for this study. A dose lowering technique was utilized adhering to the principles of ALARA. Comparison: None. Findings: The paranasal sinuses and mastoid air cells are clear. The calvarium and skull base are intact. There is no mass, hematoma, midline shift, acute infarct. White matter hypodensity is nonspecific but suggestive of microvascular ischemic change. The ventricles and sulci demonstrate mild age-related involutional changes. Posterior scalp hematoma. Impression: No acute intracranial abnormality. Posterior scalp hematoma. ACT 112: Negative or not required by law. Electronically signed by: Jonathan Bardales M.D. 11/03/2020 11:28 AM Humerus X-Ray 11/03/20 11:00 XR humerus LT 2V CLINICAL HISTORY: Fall. Left arm pain. COMPARISON STUDY: None. FINDINGS: Soft tissue density within the distal left upper arm and visualized forearm consistent with extravasation of the recent intravenous contrast. No fracture or dislocation within the left humerus. Old, healed left rib fractures are noted. Incomplete ossification versus an old nonunited fracture at the acromion. The bones are osteopenic. The contrast extravasation partially obscures the distal left humerus. IMPRESSION: 1. No definite fracture or dislocation within the left humerus. 2. Abnormal soft tissue density within the left elbow consistent with extravas ation of intravenous contrast. ACT 112: Negative or not required by law. Electronically signed by: Jonathan Bardales M.D. 11/03/2020 12:42 PM Humerus X-Ray 11/03/20 12:31 XR humerus RT 2V CLINICAL HISTORY: fall. Right arm pain. COMPARISON STUDY: None. FINDINGS: No fracture or dislocation within the right humerus. No soft tissue swelling. 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 IMPRESSION: No fracture or dislocation within the right humerus. ACT 112: Negative or not required by law. Electronically signed by: Jonathan Bardales M.D. 11/03/2020 12:44 PM ECG Data Additional Comments: EKG #1 at 1011: Atrial fibrillation with a rate of 144. QRS and QTc intervals within normal limits. No ST elevation or ST depression. EKG #2 at 1038 status post 2 boluses of Cardizem: Atrial fibrillation with a rate of 78. QRS and QTc intervals are within normal limits. No ST elevation or ST depression. MDM Narrative 1005: The patient was evaluated in room C2. A complete history and physical exam was performed Cardiac monitoring: An order was placed for continuous cardiac monitoring. The monitor shows a rate of 140-160 with atrial fibrillation rhythm Patient was found to be in A. fib with RVR. Her blood pressure was stable. IV fluids were started. Patient was given Cardizem 20 mg bolus which did not significantly improve her ventricular rate. Patient's blood pressure was stable status post Cardizem 20 mg IV push. Patient was given a repeat bolus of Cardizem 25 mg IV push which improved her ventricular rate. Patient blood p ressure was stable after the 2 Cardizem boluses. Patient be started on Cardizem drip. Her bedside creatinine POC is within normal limits. Patient was taken for CT to rule out traumatic injury. 1145: Vital signs stable on Cardizem drip. Imaging shows no traumatic injury. Patient troponin is elevated 0.197. Patient does not have at this time. We will trend the troponins. Covid negative. Discussed case with [facility], [place] [facility] and the patient will be admitted to Dr. Jacobs team Impression & Plan Atrial fibrillation with RVR, Recurrent falls Discharge Plan Visit Data Chief Complaint: Weakness ED Provider: Kvng Rose Discharge Problem: Atrial fibrillation with RVR, Recurrent falls Patient Disposition: Admitted As Inpatient Discharge Instructions Interventions: ED Discharge Assessment Last Done: 11/03/20 15:29
[2020-11-03 11:06] LABS: Albumin Level 3.3 gm/dl (3.4-5.0); BUN Creatinine Ratio 15.4 (10-20); Creatinine Clr Calc Pharmacy 52.8 ml/min; Est GFR (African American) 72.4; Est GFR (Non-African American) 62.5; Magnesium 2.1 mg/dl (1.8-2.4); Potassium 3.5 mmol/L (3.5-5.1)
[2020-11-03] MEDS ORDERED: OPTIRAY 320 100ml IV ONE (11:14)
[2020-11-03 11:15] LABS: Influenza A virus by PCR Negative (Neg); Influenza B virus by PCR Negative (Neg); RSV by PCR Negative (Neg); SARS CoV2 RNA(COVID-19) InHosp NEGATIVE (Negative)
[2020-11-03 11:17] LABS: Albumin Globulin Ratio 0.9 (0.9-2); Bilirubin,Total 0.7 mg/dl (0.2-1); Globulin 3.6 gm/dl (2.5-4.0); Total Protein 6.9 gm/dl (6.4-8.2); Troponin I 0.197 ng/ml (0-0.045)
--- NOTE | 2020-11-03 11:29 | CT Scan Report ---
HEAD CT NONCONTRAST CT DOSE: HISTORY: fall on eliquis TECHNIQUE: Multiaxial CT images of the head were performed without the use of intravenous contrast. A utomated exposure control was utilized for this study. A dose lowering technique was utilized adheri ng to the principles of ALARA. Comparison: None. Findings: The paranasal sinuses and mastoid air cells are clear. The calvarium and skull base are int act. There is no mass, hematoma, midline shift, acute infarct. White matter hypodensity is nonspecifi c but suggestive of microvascular ischemic change. The ventricles and sulci demonstrate mild age-rela indio involutional changes. Posterior scalp hematoma. Impression: No acute intracranial abnormality. Posterior scalp hematoma. ACT 112: Negative or not required by law. Electronically signed by: Jonathan Bardales M.D. 11/03/2020 11:28 AM
--- NOTE | 2020-11-03 11:35 | CT Scan Report ---
CERVICAL SPINE CT CT DOSE: 3835.75 mGy.cm HISTORY: Neck pain. fall on eliquis TECHNIQUE: Multiaxial CT images of the cervical spine were performed and reformatted in the sagittal and coronal plane without the use of contrast. A dose lowering technique was utilized adhering to th e principles of ALARA. COMPARISON: None. FINDINGS: No fractures. No subluxation. Prevertebral soft tissues and the C1-C2 interval are intact. No pneumothorax. IMPRESSION: No fractures within the cervical spine. ACT 112: Negative or not required by law. Electronically signed by: Jonathan Bardales M.D. 11/03/2020 11:34 AM
--- NOTE | 2020-11-03 11:45 | CT Scan Report ---
CHEST CT WITH CONTRAST, ABDOMEN AND PELVIS CT WITH INTRAVENOUS CONTRAST CT DOSE: HISTORY: Right-sided chest and right-sided abdominal pain. fall on eliquis TECHNIQUE: Multiaxial CT images of the chest, abdomen, and pelvis were performed following the intrav enous administration of contrast. A dose lowering technique was utilized adhering to the principles of ALARA. COMPARISON: None. FINDINGS: Chest CT: There are poststernotomy changes. No fractures within the visualized osseous structures of the chest. No mediastinal hematoma or lymphadenopathy. The heart is top normal in size. No pleural or pericardial effusions. Normal caliber esophagus. Moderate calcified plaque within the normal caliber thoracic aorta. No evidence for an aortic dissection. The central pulmonary arteries are patent. No pneumothorax. The central airways are patent. A few small linear densities within the lung bases cons istent with subsegmental atelectasis/scarring. No focal lung consolidations. Punctate calcified granu hayley within the right lung apex. Abdomen/pelvis CT: No pneumoperitoneum. No pneumatosis. No acute fractures within the visualized osse ous structures. The liver, gallbladder, adrenal glands, pancreas, and kidneys are within normal limit s. There is a punctate calcified granuloma within the spleen. Tiny fat-containing umbilical hernia. N o pelvic free fluid. The bladder is unremarkable. Prior hysterectomy. No retroperitoneal hematoma or lymphadenopathy. Extensive calcified plaque within the normal caliber abdominal aorta. No bowel wall thickening or obstruction. Colonic diverticulosis. No evidence for acute diverticulitis. Normal appen tanya. IMPRESSION: 1. No acute traumatic process within the chest, abdomen, or pelvis. 2. Additional findings as described above. ACT 112: Negative or not required by law. Electronically signed by: Jonathan Bardales M.D. 11/03/2020 11:44 AM
--- NOTE | 2020-11-03 12:43 | XRay Report ---
XR humerus LT 2V CLINICAL HISTORY: Fall. Left arm pain. COMPARISON STUDY: None. FINDINGS: Soft tissue density within the distal left upper arm and visualized forearm consistent with extravasation of the recent intravenous contrast. No fracture or dislocation within the left humerus . Old, healed left rib fractures are noted. Incomplete ossification versus an old nonunited fracture at the acromion. The bones are osteopenic. The contrast extravasation partially obscures the distal l eft humerus. IMPRESSION: 1. No definite fracture or dislocation within the left humerus. 2. Abnormal soft tissue density within the left elbow consistent with extravasation of intravenous co ntrast. ACT 112: Negative or not required by law. Electronically signed by: Jonathan Bardales M.D. 11/03/2020 12:42 PM
--- NOTE | 2020-11-03 12:46 | XRay Report ---
XR humerus RT 2V CLINICAL HISTORY: fall. Right arm pain. COMPARISON STUDY: None. FINDINGS: No fracture or dislocation within the right humerus. No soft tissue swelling. Moderate oste oarthritis at the glenohumeral joint. IMPRESSION: No fracture or dislocation within the right humerus. ACT 112: Negative or not required by law. Electronically signed by: Jonathan Bardales M.D. 11/03/2020 12:44 PM
[2020-11-03 13:10] LABS: Appearance Urine Clear (Clear); Bilirubin Urine Negative (Negative); Blood Urine Negative (Negative); Color Urine Yellow; Glucose Urine UA Negative (Negative); Ketones Urine Negative (Negative); Leukocyte Esterase Urine Negative (Negative); Nitrite Urine Negative (Negative); Protein Urine Negative (Negative); Urobilinogen Urine Negative (Negative); pH Urine 6.5 (4.5-7.5)
[2020-11-03] MEDS ORDERED: METOPROLOL TARTRATE 1 MG/ML VIAL IV STA (13:18)
[2020-11-03] MEDS ORDERED: METOPROLOL TARTRATE 25 MG TAB PO ONE (13:20)
--- NOTE | 2020-11-03 13:34 | History & Physical Report ---
Date of Service November 03, 2020 Assessment & Plan (1) Fall: patient status post fall with concussive symptoms afterwards (nausea, headache) which are currently resolved. Patient reports falls as balanced related - Can not rule out that these are related to poor rate control or other CV relat ed symptoms. - repeat ECHO - Repeat carotid artery Doppler- last was done in 2018 - Pt/OT consult - B12 level in the morning - [place] q4 - High fall risk - Case management consult placed for assistance and safety going home. Currently patient is s/p multiple falls this week, would like to follow her neurological status for 24 hours prior to resuming therapeutic anticoagulation- Restart Apixaban in morning or heparin drip then transition based on risk benefit profile (2) AF (paroxysmal atrial fibrillation): - Per review patient normally well controlled, current symptoms are likely from not taking her medications for 2-3 days. -Rate control- Metoprolol 5mg IV now followed by oral 25mg- then resume 25mg PO BID - Actually may tolerate an increase if needed -PRN 5mg IV Lopressor for HR >110 - Mag >2.0; K >4.0 - Will restart Eliquis if no evidence of bleeding; bridge with heparin tomorrow if needed It does appear when she moves around that she does get dyspneic, this may be related to her increased HR; however will further investigate with an ECHO as well as after her HR is better controlled. (3) CAD (coronary artery disease): Denies any angina or cardiac symptoms - Trend troponin I with ECG - Continue high dose Atorvastatin - Continue BB as above - ASA for primary prevention in the morning - Continue ARB Losartan/HCT 100-25 PO BID (4) Troponin level elevated: Likely type II related to poor rate control - Control HR and BP to decrease double product - NO chest pain symptoms and ECG x2 with no acute changes As above (5) Hyponatremia: Mild and chronic, she is at her normal level - multifactorial likely culprit is HCTZ part of her combo pill - likely not the cause of her balance/falls (6) Prediabetes: A1c in the morning (7) Obesity: As above (8) Osteoarthritis: Hips, knees, - Tylenol PRN - continue Vitamin D/Calcium History of Present Illness Chief Complaint: falls Primary Care Provider: Berhane Ballard MD 85 YOF with past medical history of CAD, CABG x2, Porcine AVR, afib on Apixaban, HTN, HLD, OA, Obesity, Carotid artery stenosis, benign breast biopsy for lump. Brought to the emergency room today post multiple falls. The patient fell backwards Thursday off her front porch onto her back and hitting her head, she also fell while getting out of bed and yesterday in tripped over a carpet. The patient states that she just looses her balance and is not pre- cursed by any light headedness, dizziness, chest pain, or weakness of her legs. After her fall on Thursday she said she "saw stars" and also had some nausea that started on Thursday. The patient has not taken any of her medications including her Apixabn since then. She was afib with RVR in the EMD with HR 150- 160 and was given Diltiazem IV bolus x2, which decreased her HR 90-120. She also had a non-conCT scan of the head, neck, and chest, abdomen and pelvis, and Xray films of her humerus. The hospitalist service was notified for admission. Patient was neurologically intact with noted bruising to her posterior neck, lateral neck extending to her right clavicle and chest. She is comfortably resting in bed and appropriate. Patient will be admitted for HR control, trend troponin and ECG, Pain control, PT/OT consults. Allergies Allergy/AdvReac Type Severity Reaction Status Date / Time No Known Allergies Allergy Verified 11/03/20 11:35 Home Medications Medication Instructions Recorded Confirmed Type atorvastatin 40 mg tablet 40 mg PO HS #90 tab 12/02/19 11/06/20 Rx Qunol with Turmeric 1,000 mg PO DAILY 12/06/19 11/03/20 History aspirin 81 mg tablet,delayed 81 mg PO DAILY 12/06/19 11/06/20 History release multivitamin 1 tab PO DAILY 12/06/19 11/06/20 History coenzyme Q10 100 mg capsule 100 mg PO DAILY 12/15/19 11/06/20 History losartan 100 1 tab PO DAILY #90 tab 05/01/20 11/06/20 Rx mg-hydrochlorothiazide 25 mg tablet apixaban 5 mg tablet 5 mg PO BID #180 tab 07/02/20 11/06/20 Rx calcium carbonate-vitamin D3 1 tab PO DAILY 11/03/20 11/06/20 History [Calcium 600 + D(3)] [id number]-[id number]-1-[id number]-qhm-gqgxted-ast 1 cap PO DAILY 11/03/20 11/06/20 History [krill oil] metoprolol tartrate 50 mg PO BID #180 tab 11/05/20 11/06/20 Rx Past Med/Surg History Medical History AF (paroxysmal atrial fibrillation) Aortic stenosis CAD (coronary artery disease) Carotid artery stenosis Hypercholesterolemia Hypertension Hyponatremia Mitral regurgitation NSTEMI (non-ST elevated myocardial infarction) Prediabetes Renal insufficiency Surgical History H/O aortic valve replacement bio-prosthetic valve H/O shoulder surgery Left, History of bladder surgery suspension History of total abdominal hysterectomy and bilateral salpingo-oophorectomy 1976 S/P CABG x 2 (~12/15/16) Family History Mother Cancer Father COPD (chronic obstructive pulmonary disease) Social History Smoking Status: Never smoker Second Hand Exposure: No; Hx Alcohol Use: No Hx Substance Use: No Preferred Language: Luxembourgish Communication Ability: Effective Visual Impairment: No Limitations Hearing Ability: Normal Property Specialist Required: No Beliefs That Will Affect Care: None marital status: / Current Living Situation: Alone current occupational status: retired Feels Safe at Home: Yes Childhood Exposure to Second-Hand Smoke: No caffeine: Yes during the past year weight has: remained stable Dental Care, Regularly: Yes Physical Activity Frequency: Daily Seatbelt Use: always Sunscreen Use: No Assistive Devices: Glasses and Walker Review of Systems Review of Systems: REVIEW OF SYSTEMS: Constitutional: No fever, sweats or chills Eyes: No diplopia, no worsening or blurred vision ENT: normal hearing, no trouble swallowing Respiratory: No cough, sputum, dyspnea at rest or on exertion Cardiovascular: No chest pain, tightness or palpitations Abdomen: No pain, nausea, vomiting, diarrhea or constipation Musculoskeletal: (+) joint pain, (-) calf pain, swelling Neurologic: (+) balance problems, No weakness, numbness/tingling, or Psychiatric: No anxiety or depression Skin: (+) echymosis, No rash or itch Physical Exam Physical Exam: PHYSICAL EXAM: General: awake, alert, no apparent distress Head: Normocephalic, ecchymosis to back of head, ENT: no pharyngeal exudate, mucous membranes moist Neuro: PERRLA, EOMI,, AAO x 3, speech clear and appropriate, strength intact bilaterally 5/5, sensation intact and equal all extremities and dermatomes, no pronator drift Chest: equal rise and fall of the chest, no accessory muscle use, no heaves or thrills, decreased in the bases bilaterally, on room air, Cardiac: irregular rate and rhythm, telemetry reviewed, skin warm dry, cap refill <3 seconds, peripheral pulses +2 no JVD, no murmur, no edema, no carotid bruits. GI: NABS x 4 quadrants, soft, nontender to palpation, no rebound, guarding or tenderness : Spontaneously voiding, no pain, no CVA tenderness, Extremities: Normal inspection, no peripheral edema or erythema, calfs nontender to palpation, brusing and soreness to left tib/fib and left knee. Psych: Normal mood and affect Skin: no rash or erythema, ecchymosis as above Results & Data Results & Data ([facility]) Vital Signs (Past 12 Hours) Vital Signs Temp Pulse Resp BP Pulse Ox 11/03/20 12:31 117 H 20 92 11/03/20 12:30 94 H 18 97 11/03/20 12:15 96 H 22 186/94 H 99 11/03/20 12:02 84 18 97 11/03/20 12:00 84 16 11/03/20 11:46 83 21 211/94 H 98 11/03/20 11:45 100 H 20 97 11/03/20 11:31 79 23 97 11/03/20 11:30 78 20 174/89 H 96 11/03/20 11:16 77 19 150/68 H 96 11/03/20 11:15 88 21 96 11/03/20 11:13 102 H 16 130/103 H 96 11/03/20 11:08 94 H 11/03/20 10:40 72 19 123/59 L 94 11/03/20 10:35 75 20 117/63 96 11/03/20 10:32 16 95 11/03/20 10:30 107 H 21 148/65 H 94 11/03/20 10:26 37.5 C 155 H 16 132/85 95 11/03/20 10:25 118 H 18 153/123 H 95 11/03/20 10:20 128 H 19 146/85 H 93 11/03/20 10:18 145 H 20 139/96 94 11/03/20 10:16 155 H 17 96 11/03/20 10:14 157 H 18 127/74 96 11/03/20 10:07 161 H 20 96 11/03/20 10:05 152 H 21 132/85 Laboratory Results Abnormal lab results 11/03/20 11/03/20 11/03/20 Range/Units 10:18 10:36 10:36 MCHC 36.3 H (32-36) g/dL Neut # (Auto) 6.67 H (1.4-6.5) K/uL Lymph # (Auto) 1.06 L (1.2-3.4) K/uL POC Sodium 129 L (135-144) mmol/L Sodium 131 L (136-145) mmol/L POC Chloride 96 L (101-112) mmol/L Chloride 97 L (98-107) mmol/L POC Anion Gap 8.0 L (16-25) mmol/L Glucose 177 H (70-99) mg/dl POC Glucose (other) 179 H (70-99) mg/dl POC Ioniz Calcium [place] 1.07 L (1.12-1.32) mmol/l Troponin I 0.197 H* (0-0.045) ng/ml Albumin 3.3 L (3.4-5.0) gm/dl Diagnostic Findings CHEST CT WITH CONTRAST, ABDOMEN AND PELVIS CT WITH INTRAVENOUS CONTRAST CT DOSE: HISTORY: Right-sided chest and right-sided abdominal pain. fall on eliquis TECHNIQUE: Multiaxial CT images of the chest, abdomen, and pelvis were performed following the intravenous administration of contrast. A dose lowering technique was utilized adhering to the principles of ALARA. COMPARISON: None. FINDINGS: Chest CT: There are poststernotomy changes. No fractures within the visualized osseous structures of the chest. No mediastinal hematoma or lymphadenopathy. The heart is top normal in size. No pleural or pericardial effusions. Normal caliber esophagus. Moderate calcified plaque within the normal caliber thoracic aorta. No evidence for an aortic dissection. The central pulmonary arteries are patent. No pneumothorax. The central airways are patent. A few small linear densities within the lung bases consistent with subsegmental atelectasis/scarring. No focal lung consolidations. Punctate calcified granuloma within the right lung apex. Abdomen/pelvis CT: No pneumoperitoneum. No pneumatosis. No acute fractures within the visualized osseous structures. The liver, gallbladder, adrenal glands, pancreas, and kidneys are within normal limits. There is a punctate calcified granuloma within the spleen. Tiny fat-containing umbilical hernia. No pelvic free fluid. The bladder is unremarkable. Prior hysterectomy. No retroperitoneal hematoma or lymphadenopathy. Extensive calcified plaque within the normal caliber abdominal aorta. No bowel wall thickening or obstruction. Colonic diverticulosis. No evidence for acute diverticulitis. Normal appendix. IMPRESSION: 1. No acute traumatic process within the chest, abdomen, or pelvis. 2. Additional findings as described above. CERVICAL SPINE CT CT DOSE: 3835.75 mGy.cm HISTORY: Neck pain. fall on eliquis TECHNIQUE: Multiaxial CT images of the cervical spine were performed and reformatted in the sagittal and coronal plane without the use of contrast. A dose lowering technique was utilized adhering to the principles of ALARA. COMPARISON: None. FINDINGS: No fractures. No subluxation. Prevertebral soft tissues and the C1-C2 interval are intact. No pneumothorax. IMPRESSION: No fractures within the cervical spine. CHEST CT WITH CONTRAST, ABDOMEN AND PELVIS CT WITH INTRAVENOUS CONTRAST CT DOSE: HISTORY: Right-sided chest and right-sided abdominal pain. fall on eliquis TECHNIQUE: Multiaxial CT images of the chest, abdomen, and pelvis were performed following the intravenous administration of contrast. A dose lowering technique was utilized adhering to the principles of ALARA. COMPARISON: None. FINDINGS: Chest CT: There are poststernotomy changes. No fractures within the visualized osseous structures of the chest. No mediastinal hematoma or lymphadenopathy. The heart is top normal in size. No pleural or pericardial effusions. Normal caliber esophagus. Moderate calcified plaque within the normal caliber thoracic aorta. No evidence for an aortic dissection. The central pulmonary arteries are patent. No pneumothorax. The central airways are patent. A few small linear densities within the lung bases consistent with subsegmental atelectasis/scarring. No focal lung consolidations. Punctate calcified granuloma within the right lung apex. Abdomen/pelvis CT: No pneumoperitoneum. No pneumatosis. No acute fractures within the visualized osseous structures. The liver, gallbladder, adrenal glands, pancreas, and kidneys are within normal limits. There is a punctate calcified granuloma within the spleen. Tiny fat-containing umbilical hernia. No pelvic free fluid. The bladder is unremarkable. Prior hysterectomy. No retroperitoneal hematoma or lymphadenopathy. Extensive calcified plaque within the normal caliber abdominal aorta. No bowel wall thickening or obstruction. Colonic diverticulosis. No evidence for acute diverticulitis. Normal appendix. IMPRESSION: 1. No acute traumatic process within the chest, abdomen, or pelvis. 2. Additional findings as described above. HEAD CT NONCONTRAST CT DOSE: HISTORY: fall on eliquis TECHNIQUE: Multiaxial CT images of the head were performed without the use of intravenous contrast. Automated exposure control was utilized for this study. A dose lowering technique was utilized adhering to the principles of ALARA. Comparison: None. Findings: The paranasal sinuses and mastoid air cells are clear. The calvarium and skull base are intact. There is no mass, hematoma, midline shift, acute infarct. White matter hypodensity is nonspecific but suggestive of microvascular ischemic change. The ventricles and sulci demonstrate mild age-related involutional changes. Posterior scalp hematoma. Impression: No acute intracranial abnormality. Posterior scalp hematoma. XR humerus LT 2V CLINICAL HISTORY: Fall. Left arm pain. COMPARISON STUDY: None. FINDINGS: Soft tissue density within the distal left upper arm and visualized fo rearm consistent with extravasation of the recent intravenous contrast. No fracture or dislocation within the left humerus. Old, healed left rib fractures are noted. Incomplete ossification versus an old nonunited fracture at the acromion. The bones are osteopenic. The contrast extravasation partially obscures the distal left humerus. IMPRESSION: 1. No definite fracture or dislocation within the left humerus. 2. Abnormal soft tissue density within the left elbow consistent with extravasation of intravenous contrast. XR humerus RT 2V CLINICAL HISTORY: fall. Right arm pain. COMPARISON STUDY: None. FINDINGS: No fracture or dislocation within the right humerus. No soft tissue swelling. 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 IMPRESSION: No fracture or dislocation within the right humerus. Pending: Left tib/fib Medications Administered Home Medications atorvastatin 40 mg tablet 40 mg PO HS #90 tab 12/02/19 [Rx Confirmed 11/03/20] Qunol with Turmeric 1,000 mg PO DAILY 12/06/19 [History Confirmed 11/03/20] aspirin 81 mg tablet,delayed release 81 mg PO DAILY 12/06/19 [History Confirmed 11/03/20] multivitamin 1 tab PO DAILY 12/06/19 [History Confirmed 11/03/20] coenzyme Q10 100 mg capsule 100 mg PO DAILY 12/15/19 [History Confirmed 11/03/20] losartan 100 mg-hydrochlorothiazide 25 mg tablet 1 tab PO DAILY #90 tab 05/01/20 [Rx Confirmed 11/03/20] apixaban 5 mg tablet 5 mg PO BID #180 tab 07/02/20 [Rx Confirmed 11/03/20] metoprolol tartrate 25 mg tablet 25 mg PO BID #180 tab 08/01/20 [Rx Confirmed 11/03/20] calcium carbonate-vitamin D3 [Calcium 600 + D(3)] 1 tab PO DAILY 11/03/20 [History Confirmed 11/03/20] [id number]-6-[id number]-wwk-yeopkpx-ast [krill oil] 1 cap PO DAILY 11/03/20 [History Confirmed 11/03/20] Active Medications Sodium Chloride (Nss 1000ml) 1,000 mls @ 125 mls/hr IV .Q8H NUVIA Stop: 12/03/20 10:14 Last Infusion: 11/03/20 13:47 Dose: Infused Documented by: Metoprolol Tartrate (Metoprolol Tartrate 1 Mg/Ml Vial) 5 mg IV Q2H PRN PRN Reason: HR > 110 Stop: 12/03/20 13:43 Sodium Chloride (Nss 1000ml) 1,000 mls @ 125 mls/hr IV .Q8H NUVIA Stop: 12/03/20 10:14 Last Infusion: 11/03/20 13:47 Dose: 0 mls/hr Documented by: [id number] Admin: 11/03/20 10:17 Dose: 125 mls/hr Documented by: [id number] Discontinued Medications Diltiazem HCl (Diltiazem Hcl 5 Mg/Ml 5 Ml Vial) Confirm Administered Dose 25 mg IV .STK-MED ONE Stop: 11/03/20 10:13 Last Increment: 11/03/20 10:15 Dose: 20 mg Documented by: [id number] Cosigned by: [id number] Diltiazem HCl (Diltiazem Hcl 5 Mg/Ml 5 Ml Vial) 20 mg IV NOW STA Stop: 11/03/20 10:09 Last Admin: 11/03/20 10:15 Dose: Not Given Documented by: [id number] Diltiazem HCl (Diltiazem Hcl 5 Mg/Ml 5 Ml Vial) 25 mg IV NOW STA Stop: 11/03/20 10:18 Last Admin: 11/03/20 10:22 Dose: 25 mg Documented by: [id number] Cosigned by: [id number] Ioversol (Ioversol 100ml) 90 ml IV ONCE ONE Stop: 11/03/20 11:15 Last Admin: 11/03/20 11:14 Dose: 90 ml Documented by: [id number] Metoprolol Tartrate (Metoprolol Tartrate 1 Mg/Ml Vial) 5 mg IV NOW STA Stop: 11/03/20 13:19 Last Admin: 11/03/20 13:43 Dose: 5 mg Documented by: [id number] Metoprolol Tartrate (Metoprolol Tartrate 25 Mg Tab) 25 mg PO ONE ONE Stop: 11/03/20 13:21 Last Admin: 11/03/20 13:42 Dose: 25 mg Documented by: [id number] Miscellaneous (Stat Iv Infusion Titration Per Protocol) 1 ea N/A NOW STA Stop: 11/03/20 10:18 Last Admin: 11/03/20 13:37 Dose: Not Given Documented by: [id number] ECG Additional Comments: Atrial fibrillation with rapid ventricular response Nonspecific ST abnormality Abnormal QRS-T angle, consider primary T wave abnormality Abnormal ECG When compared with ECG of 09-DEC-2016 06:19, Atrial fibrillation has replaced Sinus rhythm Vent. rate has increased BY 79 BPM Code Status & VTE Plan Code Status CODE: FULL VTE: SCD's VTE Prophylaxis Plan VTE Prophylaxis will be ordered: Yes Supervising Physician Co-Signing Physician Notes Attending Attestation - Pt seen/examined, chart reviewed, care plan d/w JESS Carson. I agree w/ the boogie components of his documentation. 85yo female with h/o CAD, PAF, prior s/p AVR (bovine), HTN - presenting w/ 3 falls this week alone, one of which led to significant bruising on the posterior scalp and neck. Upon ER presentation was in rapid a.fib. During my assessment her HR would rise to 130 with simply sitting up in bed. Pt denies chest pain or abd pain. She does not feel palpitations from the PAF. PMH, PSH, allergies, meds, sochx, famhx - reviewed vitals - rapid HR, BP wnl, O2 sats wnl gen - NAD neck - bruising over entire posterior aspect of neck; no JVD heart - tachy, irregular, s1 s2 lungs - CTA b/l abd - soft NT ext - <1+ edema b/ skin - large posterior head (occipital) hematoma labs, imaging, ekg - reviewed Na 131 mildly elevated trop A/P: 1. rapid a.fib 2. recurrent falls 3. trauma to neck with resulting extensive bruising of neck/back of head & scalp hematoma 4. HTN 5. chronic anticoagulation for #1 6. hyponatremia - chronic, likely 2nd to HCTZ use 7. positive troponin - myocardial demand ischemia in setting of #1 above increase beta aiden for a.fib rate control HOLD anticoagulation given the significant bruising and trauma re-eval tomorrow for timing of resumption of anticoagulation PT, OT given #2 telemetry fall precautions check b12 level given balance issues/falls trend trops Miguel Pearson MD PG Care Time/CCT Total # of Minutes Spent Total Time Spent with Patient: Total time spent is greater than 50% in primary care coordinator rdination of care (as documented) at patient's floor/unit and/or counseling patient: Coding Level of Care Code 86919 Initial Inpt Care Lvl 3 Diagnoses Fall W19.XXXA Encounter type: initial encounter AF (paroxysmal atrial fibrillation) I48.0 CAD (coronary artery disease) I25.10 Associated angina: without angina Coronary Disease-Associated Artery/Lesion type: [place] artery [place] vs. transplanted heart: [place] heart Troponin level elevated R77.8 Hyponatremia E87.1 Prediabetes R73.03 Obesity E66.09; Z68.35 Body mass index: BMI 35.0-35.9 Obesity classification: adult class 2 (BMI 35 - 39.9) Obesity type: due to excess calories Serious obesity comorbidity presence: unspecified whether serious comorbidity present Osteoarthritis M19.91 Osteoarthritis location: unspecified site Osteoarthritis type: primary (1) CAD (coronary artery disease) Associated angina: without angina Coronary Disease-Associated Artery/Lesion type: [place] artery [place] vs. transplanted heart: [place] heart Qualified Code(s): I25.10 - Atherosclerotic heart disease of [place] coronary artery without angina pectoris (2) Osteoarthritis Osteoarthritis location: unspecified site Osteoarthritis type: primary Qualified Code(s): M19.91 - Primary osteoarthritis, unspecified site (3) Fall Encounter type: initial encounter Qualified Code(s): W19.XXXA - Unspecified fall, initial encounter (4) Obesity Body mass index: BMI 35.0-35.9 Obesity classification: adult class 2 (BMI 35 - 39.9) Obesity type: due to excess calories Serious obesity comorbidity presence: unspecified whether serious comorbidity present Qualified Code(s): E66.09 - Other obesity due to excess calories; Z68.35 - Body mass index [BMI] 35.0-35.9, adult
[2020-11-03] MEDS ORDERED: METOPROLOL TARTRATE 1 MG/ML VIAL IV PRN (13:44)
--- NOTE | 2020-11-03 14:46 | XRay Report ---
XR tibia fibula LT 2V CLINICAL HISTORY: s/p fall, ecchymosis, tender. Rule out fracture. COMPARISON STUDY: Left tibia/fibular 12/15/2019. FINDINGS: Surgical clips within the proximal left lower leg. Mild osteoarthritis within the left knee . The bones are osteopenic. No fracture or dislocation within the left tibia or fibula. There is ante rior soft tissue swelling. IMPRESSION: Anterior soft tissue swelling within the left lower leg. No fractures. ACT 112: Negative or not required by law. Electronically signed by: Jonathan Bardales M.D. 11/03/2020 2:45 PM
[2020-11-03] MEDS ORDERED: ACETAMINOPHEN 325 MG TAB PO PRN (16:08)
[2020-11-03] MEDS ORDERED: ONDANSETRON INJ 2 MG/ML 2 ML VIAL IV PRN (16:08)
[2020-11-03] MEDS ORDERED: POLYETHYLENE (MIRALAX) 17 GM PACK PO PRN (16:08)
[2020-11-03] MEDS: METOPROLOL TARTRATE 25 MG TAB PO SCH (20:30)
[2020-11-03] MEDS: ATORVASTATIN 40 MG TAB PO SCH (20:30)
[2020-11-04 05:49] LABS: Basophils # (auto) 0.02 K/uL (0-0.2); Basophils % (auto) 0.3 %; Eosinophils # (auto) 0.05 K/uL (0-0.5); Eosinophils % (auto) 0.6 %; Hematocrit (blood only) 37.4 % (37-47); Hemoglobin 13.2 g/dL (12.0-16.0); Immature Granulocytes # (auto) 0.02 K/uL (0.00-0.02); Immature Granulocytes % (auto) 0.3 %; Lymphocytes # (auto) 1.83 K/uL (1.2-3.4); Lymphocytes % (auto) 23.7 %; Mean Corpuscular Hemoglobin 32.3 pg (25-34); Mean Corpuscular Hgb Conc 35.3 g/dL (32-36); Mean Corpuscular Volume 91.4 fL (80-100); Mean Platelet Volume 9.7 fL (7.4-10.4); Monocytes # (auto) 0.73 K/uL (0.11-0.59); Monocytes % (auto) 9.5 %; Neutrophils # (auto) 5.06 K/uL (1.4-6.5); Neutrophils % (auto) 65.6 %; Platelet Count 238 K/uL (130-400); RDW Coefficient of Variation 14.2 % (11.5-14.5); RDW Standard Deviation 47.6 fL (36.4-46.3); Red Blood Count 4.09 M/uL (4.2-5.4); White Blood Count 7.71 K/uL (4.8-10.8)
[2020-11-04 06:23] LABS: BUN Creatinine Ratio 18.7 (10-20); Calcium 8.5 mg/dl (8.5-10.1); Creatinine Clr Calc Pharmacy 55.2 ml/min; Est GFR (African American) 76.7; Est GFR (Non-African American) 66.2; Magnesium 2.2 mg/dl (1.8-2.4); Potassium 3.6 mmol/L (3.5-5.1)
[2020-11-04] MEDS: CALCIUM 600MG + VIT D 400 IU TAB PO SCH ×2 (07:58→08:04)
[2020-11-04] MEDS: LOSARTAN/HCTZ 50/12.5MG TAB PO SCH (07:59)
[2020-11-04] MEDS: METOPROLOL TARTRATE 25 MG TAB PO SCH ×2 (07:59→21:09)
[2020-11-04] MEDS: MULTIVITAMIN TAB PO SCH ×2 (07:59→08:04)
[2020-11-04] MEDS: OMEGA-3 (PURIFIED FISH OIL) 1 GM CAP PO SCH ×2 (08:00→08:04)
--- NOTE | 2020-11-04 08:19 | Ultrasound Report ---
CAROTID ARTERY ULTRASOUND CLINICAL HISTORY: carotid artery stenosis, falls, last (2018) COMPARISON STUDY: Carotid ultrasound February 03, 2014. TECHNIQUE: Real-time, grayscale, and color Doppler sonography of the carotid and vertebral arteries w as performed. Images were viewed in the transverse and longitudinal planes. FINDINGS: There is moderate atherosclerotic plaque. Velocity measurements are listed below. COMMON CAROTID PEAK SYSTOLIC VELOCITY (CM/S): RIGHT 68 LEFT 94 ICA PEAK SYSTOLIC VELOCITY (CM/S): RIGHT 95 LEFT 110 Systolic ratios between the internal to common carotid arteries are normal. Antegrade flow is seen in the vertebral arteries. The external carotid arteries are patent. IMPRESSION: No evidence for a hemodynamically significant stenosis. ACT 112: Negative or not required by law. Electronically signed by: Corky Noble M.D. 11/04/2020 8:17 AM
[2020-11-04] MEDS ORDERED: GADOBUTROL 30ML VIAL IV ONE (12:55)
--- NOTE | 2020-11-04 13:35 | Magnetic Resonance Report ---
MRI OF THE BRAIN WITHOUT AND WITH IV CONTRAST CLINICAL HISTORY: ataxia,falls COMPARISON STUDY: Head CT November 03, 2020. TECHNIQUE: Utilizing a 1.5 Alona magnet and dedicated coil, multiplanar, multiecho imaging of the br ain was performed pre and postcontrast administration. IV administration of 9 mL of Gadavist contras t was uneventful. Thin cut axial images through the internal auditory canals were obtained. FINDINGS: There are no foci of restricted diffusion to suggest acute infarct. No acute intracranial h emorrhage, midline shift or mass effect is present. Ventricular system is normal. Basilar cisterns ar e patent. There are no extra-axial collections. Flow-voids for the major intracranial vessels are pre sent. There is no mass or abnormal enhancement within the internal auditory canals. There is no masto id effusion. No cerebellopontine angle mass is present. Note is made of a 2 mm focus of susceptibilit y artifact within the posterior right temporal lobe on gradient echo sequence. Numerous small white m atter T2 hyperintense foci suggest mild small vessel disease. There is a right posterior scalp contus ion. IMPRESSION: 1. No acute intracranial findings. 2. No mass or abnormal enhancement within the internal auditory canals. 3. Right posterior scalp contusion. 4. 2 mm focus of susceptibility artifact within the posterior right temporal lobe which suggests trac e old blood products. ACT 112: Negative or not required by law. Electronically signed by: Corky Noble M.D. 11/04/2020 1:34 PM
--- NOTE | 2020-11-04 14:06 | Hospitalist Progress Note ---
Date of Service November 04, 2020 Assessment & Plan (1) Fall: patient status post fall with concussive symptoms afterwards (nausea, headache) which are intermittent. Patient reports initial fall last Thursday was due to a misstep and fell down 1 step into the garage and landed flat on her back striking her head on the ground resulting in large hematoma and multiple bruises on posterior neck and back and scalp. Since then, has had intermittent imbalance and dizziness, and headaches with nausea. Most likely postconcussive syndrome causing her second fall. She presented with rapid atrial fibrillation but since has converted to normal sinus rhythm, still is having similar symptoms to previous and is not related to the atrial fibrillation. MRI of the brain-negative for stroke. There is a 2 mm focus of susceptibility artifact in the posterior right temporal lobe suggesting trace old blood products-I reviewed this with the neurologist who reviewed with the radiologist and this is not of any clinical significance and is likely quite old. Echocardiogram without recurrent aortic stenosis Carotid artery ultrasound without's hemodynamically significant carotid artery stenosis B12 levels normal -We will check TSH in the morning -PT/OT evaluations ordered-OT recommends home with home health, awaiting PT evaluation -She is on anticoagulation and has had 2 falls in the last week, but typically is quite active at home without any assistive devices She may need short-term rehab stay until concussive symptoms have improved to assist her so she does not have recurrent falls Patient is very resistant to rehab stay. I discussed her case with her daughter who will attempt to convince the patient to go to rehab if this is what physical therapy recommends -Okay to restart Eliquis -Consult neurology for further evaluation (2) Imbalance: As above (3) Concussion: As above (4) AF (paroxysmal atrial fibrillation): - Per review patient normally well controlled and asymptomatic, current symptoms are likely from not taking her medications for 2-3 days. -Rate control-was treated with metoprolol 5mg IV x1 on admission followed by oral metoprolol 25mg- then resumed 25mg PO BID -Now converted to normal sinus rhythm and doing well -Keep mag >2.0; K >4.0 -Okay to restart Eliquis now that hemoglobin stable, MRI of the brain with old blood products and a 2 mm focus but no acute bleeding -Continue telemetry monitoring (5) CAD (coronary artery disease): Denies any angina or cardiac symptoms. 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 Today is at 135 - multifactorial likely culprit is HCTZ part of her combo pill - likely not the cause of her balance/falls (8) Prediabetes: Hemoglobin A1c pending Morning fasting glucose was 177 Follow a.m. venous glucose (9) Obesity: BMI 35 Encourage low carbohydrate diet and weight loss (10) Osteoarthritis: Hips, knees, - Tylenol PRN (11) Hypertension: Blood pressures are quite elevated Continue metoprolol but will increase dose to 50 mg p.o. twice daily, losartan/HCT (12) S/P AVR: Noted as above (13) DVT prophylaxis: Eliquis Disposition-continued stay on PCU Awaiting PT evaluation May need rehab but is very resistant to rehab Is agreeable to released home with home health Possible discharge home tomorrow after neurology consultation Admission and Anticipated Discharge Date Admission Date: November 03, 2020 Subjective Patient reports she had a headache and felt nauseated after lying flat for her MRI of the brain today but feels better now. She reports after her fall where she hit her head and bruised up her backside last Thursday, she felt fine for Thursday and . Then on Thursday and yesterday/the day of admission, she felt "wobbly" on her feet and off balance. She denies any visual changes, no weakness anywhere, no slurred speech. She has chronic intermittent tension type headaches. She denies any chest pain or shortness of breath. She never felt any heart palpitations or lightheadedness when she was in rapid atrial fibrillation. She converted to normal sinus rhythm this morning and feels no different. She reports that she absolutely will not go to a rehab. She is still feeling off balance but did work with occupational therapy today who recommended home with home health. Review of Systems Review of Systems: All systems reviewed & are unremarkable except as noted in HPI & below Physical Exam Constitutional: WD/WN, vitals as above Eyes: PERRL, conjunctivae normal, anicteric sclerae EOM intact bilaterally; no nystagmus ENMT: external ear and nose normal, oropharynx normal Posterior scalp with 4 to 5 cm rounded hematoma with overlying dried blood, tender to the touch Neck: trachea midline, no thyromegaly Respiratory: normal respiratory effort, lungs clear to auscultation Cardiovascular: Rate/Rhythm: regular rate and regular rhythm Heart Sounds: + murmur (2/6 YONATAN at RUSB) Extremities: no edema Chest (Breasts): Chest: normal inspection of chest Gastrointestinal (Abdomen): normal bowel sounds, soft, nontender, no hepatosplenomegaly Musculoskeletal: Extremities: extremities normal to inspection; no cyanosis and no clubbing Skin: no rashes, warm and dry Large areas of ecchymosis on left posterior upper arm, entire posterior neck, left posterior chest wall, left inner thigh Neurologic: PERRL, EOMI, accommodation nl, no face palsy, no dysarthria CN's II-XI intact bilaterally, moves all extremities and awake; no focal motor deficits and not confused Psychiatric: A+Ox3, euthymic affect Lymphatic: no lymphedema Results & Data Results & Data ([facility]) Vital Signs (Past 12 Hours) Vital Signs Temp Pulse Pulse Resp BP Pulse Ox 11/04/20 12:04 37.0 C 64 16 168/79 H 98 11/04/20 08:00 87 11/04/20 06:27 36.6 C 74 17 178/78 H 98 11/04/20 04:16 36.7 C 79 20 161/73 H 97 Laboratory Results 11/04/20 11/04/20 11/04/20 Range/Units 05:38 05:38 05:38 WBC (4.8-10.8) K/uL RBC (4.2-5.4) M/uL Hgb (12.0-16.0) g/dL Hct (37-47) % MCV (80-100) fL MCH (25-34) pg MCHC (32-36) g/dL RDW Std Deviation (36.4-46.3) fL RDW Coeff of Fiona (11.5-14.5) % Plt Count (130-400) K/uL MPV (7.4-10.4) fL Immature Gran % (Auto) % Neut % (Auto) % Lymph % (Auto) % [place] % (Auto) % Eos % (Auto) % Baso % (Auto) % Neut # (Auto) (1.4-6.5) K/uL Lymph # (Auto) (1.2-3.4) K/uL [place] # (Auto) (0.11-0.59) K/uL Eos # (Auto) (0-0.5) K/uL Baso # (Auto) (0-0.2) K/uL Immature Gran # (Auto) (0.00-0.02) K/uL Sodium 135 L (136-145) mmol/L Potassium 3.6 (3.5-5.1) mmol/L Chloride 101 (98-107) mmol/L Carbon Dioxide 30 (21-32) mmol/L Anion Gap 4.0 (3-11) BUN 15 (7-18) mg/dl Creatinine 0.82 (0.6-1.2) mg/dl Est Cr Clr Drug Dosing 55.2 ml/min Est GFR ( Amer) 76.7 Est GFR (Non-Af Amer) 66.2 BUN/Creatinine Ratio 18.7 (10-20) Glucose 110 H (70-99) mg/dl Estimat Average Glucose Pending Hemoglobin A1c Pending Calcium 8.5 (8.5-10.1) mg/dl Magnesium 2.2 (1.8-2.4) mg/dl Troponin I (0-0.045) ng/ml Triglycerides 60 (0-150) mg/dl Cholesterol 123 (0-200) mg/dl LDL Cholesterol, Calc 47 mg/dl VLDL Cholesterol, Calc 12 mg/dl HDL Cholesterol 64 mg/dl Cholesterol/HDL Ratio 2 Vitamin B12 1323 H (193-986) pg/ml 11/04/20 11/04/20 Range/Units 05:38 02:44 WBC 7.71 (4.8-10.8) K/uL RBC 4.09 L (4.2-5.4) M/uL Hgb 13.2 (12.0-16.0) g/dL Hct 37.4 (37-47) % MCV 91.4 (80-100) fL MCH 32.3 (25-34) pg MCHC 35.3 (32-36) g/dL RDW Std Deviation 47.6 H (36.4-46.3) fL RDW Coeff of Fiona 14.2 (11.5-14.5) % Plt Count 238 (130-400) K/uL MPV 9.7 (7.4-10.4) fL Immature Gran % (Auto) 0.3 % Neut % (Auto) 65.6 % Lymph % (Auto) 23.7 % [place] % (Auto) 9.5 % Eos % (Auto) 0.6 % Baso % (Auto) 0.3 % Neut # (Auto) 5.06 (1.4-6.5) K/uL Lymph # (Auto) 1.83 (1.2-3.4) K/uL [place] # (Auto) 0.73 H (0.11-0.59) K/uL Eos # (Auto) 0.05 (0-0.5) K/uL Baso # (Auto) 0.02 (0-0.2) K/uL Immature Gran # (Auto) 0.02 (0.00-0.02) K/uL Sodium (136-145) mmol/L Potassium (3.5-5.1) mmol/L Chloride (98-107) mmol/L Carbon Dioxide (21-32) mmol/L Anion Gap (3-11) BUN (7-18) mg/dl Creatinine (0.6-1.2) mg/dl Est Cr Clr Drug Dosing ml/min Est GFR ( Amer) Est GFR (Non-Af Amer) BUN/Creatinine Ratio (10-20) Glucose (70-99) mg/dl Estimat Average Glucose Hemoglobin A1c Calcium (8.5-10.1) mg/dl Magnesium (1.8-2.4) mg/dl Troponin I 0.145 H* (0-0.045) ng/ml Triglycerides (0-150) mg/dl Cholesterol (0-200) mg/dl LDL Cholesterol, Calc mg/dl VLDL Cholesterol, Calc mg/dl HDL Cholesterol mg/dl Cholesterol/HDL Ratio Vitamin B12 (193-986) pg/ml Diagnostic Findings MRI OF THE BRAIN WITHOUT AND WITH IV CONTRAST CLINICAL HISTORY: ataxia,falls COMPARISON STUDY: Head CT November 03, 2020. TECHNIQUE: Utilizing a 1.5 Alona magnet and dedicated coil, multiplanar, multiecho imaging of the brain was performed pre and postcontrast administ ration. IV administration of 9 mL of Gadavist contrast was uneventful. Thin cut axial images through the internal auditory canals were obtained. FINDINGS: There are no foci of restricted diffusion to suggest acute infarct. No acute intracranial hemorrhage, midline shift or mass effect is present. Ventricular system is normal. Basilar cisterns are patent. There are no extra- axial collections. Flow-voids for the major intracranial vessels are present. There is no mass or abnormal enhancement within the internal auditory canals. There is no mastoid effusion. No cerebellopontine angle mass is present. Note is made of a 2 mm focus of susceptibility artifact within the posterior right temporal lobe on gradient echo sequence. Numerous small white matter T2 hyperintense foci suggest mild small vessel disease. There is a right posterior scalp contusion. IMPRESSION: 1. No acute intracranial findings. 2. No mass or abnormal enhancement within the internal auditory canals. 3. Right posterior scalp contusion. 4. 2 mm focus of susceptibility artifact within the posterior right temporal lobe which suggests trace old blood products. Carotid artery ultrasound-no evidence for hemodynamically significant stenosis Echocardiogram-EF 69-70%, no regional wall motion abnormalities, bioprosthetic aortic valve with top normal transvalvular mean gradient, mild to moderate MR, mild to moderate TR PG Care Time/CCT Total # of Minutes Spent Total Time Spent with Patient: Total time spent is greater than 50% in coordination of care (as documented) at patient's floor/unit and/or counseling patient: Coding Level of Care Code 35872 Subseq Hosp Care Lvl 3 Diagnoses Fall W19.XXXA Encounter type: initial encounter Imbalance R26.89 Concussion S06.0X9A AF (paroxysmal atrial fibrillation) I48.0 CAD (coronary artery disease) I25.10 Associated angina: without angina Coronary Disease-Associated Artery/Lesion type: [place] artery [place] vs. transplanted heart: [place] heart Troponin level elevated R77.8 Hyponatremia E87.1 Prediabetes R73.03 Obesity E66.09; Z68.35 Body mass index: BMI 35.0-35.9 Obesity classification: adult class 2 (BMI 35 - 39.9) Obesity type: due to excess calories Serious obesity comorbidity presence: unspecified whether serious adams rbidity present Osteoarthritis M19.91 Osteoarthritis location: unspecified site Osteoarthritis type: primary Hypertension I10 S/P AVR Z95.2 DVT prophylaxis Z29.9 (1) CAD (coronary artery disease) Associated angina: without angina Coronary Disease-Associated Artery/Lesion type: [place] artery [place] vs. transplanted heart: [place] heart Qualified Code(s): I25.10 - Atherosclerotic heart disease of [place] coronary artery without angina pectoris (2) Osteoarthritis Osteoarthritis location: unspecified site Osteoarthritis type: primary Qualified Code(s): M19.91 - Primary osteoarthritis, unspecified site (3) Fall Encounter type: initial encounter Qualified Code(s): W19.XXXA - Unspecified fall, initial encounter (4) Obesity Body mass index: BMI 35.0-35.9 Obesity classification: adult class 2 (BMI 35 - 39.9) Obesity type: due to excess calories Serious obesity comorbidity presence: unspecified whether serious comorbidity present Qualified Code(s): E66.09 - Other obesity due to excess calories; Z68.35 - Body mass index [BMI] 35.0-35.9, adult
--- NOTE | 2020-11-04 16:57 | XCELERA ---
[id number]
[2020-11-04] MEDS: APIXABAN 5 MG TABLET PO SCH (17:42)
[2020-11-04] MEDS: ATORVASTATIN 40 MG TAB PO SCH (21:09)
[2020-11-05 06:06] LABS: Basophils # (auto) 0.02 K/uL (0-0.2); Basophils % (auto) 0.3 %; Eosinophils # (auto) 0.12 K/uL (0-0.5); Eosinophils % (auto) 1.7 %; Hematocrit (blood only) 36.3 % (37-47); Hemoglobin 12.6 g/dL (12.0-16.0); Immature Granulocytes # (auto) 0.03 K/uL (0.00-0.02); Immature Granulocytes % (auto) 0.4 %; Lymphocytes # (auto) 1.64 K/uL (1.2-3.4); Lymphocytes % (auto) 23.3 %; Mean Corpuscular Hemoglobin 31.3 pg (25-34); Mean Corpuscular Hgb Conc 34.7 g/dL (32-36); Mean Corpuscular Volume 90.3 fL (80-100); Mean Platelet Volume 9.9 fL (7.4-10.4); Monocytes # (auto) 0.68 K/uL (0.11-0.59); Monocytes % (auto) 9.7 %; Neutrophils # (auto) 4.55 K/uL (1.4-6.5); Neutrophils % (auto) 64.6 %; Platelet Count 220 K/uL (130-400); RDW Coefficient of Variation 13.9 % (11.5-14.5); RDW Standard Deviation 46.3 fL (36.4-46.3); Red Blood Count 4.02 M/uL (4.2-5.4); White Blood Count 7.04 K/uL (4.8-10.8)
--- NOTE | 2020-11-05 06:12 | Electrocardiogram Report ---
Test Reason : Blood Pressure : / mmHG Vent. Rate : 144 BPM Atrial Rate : 131 BPM P-R Int : 000 ms QRS Dur : 090 ms QT Int : 266 ms P-R-T Axes : 000 -26 096 degrees QTc Int : 411 ms Atrial fibrillation with rapid ventricular response Nonspecific ST abnormality Abnormal ECG When compared with ECG of 09-DEC-2016 06:19, Atrial fibrillation has replaced Sinus rhythm Vent. rate has increased BY 79 BPM Confirmed by Real Mcnally ([id number]) on 11/05/2020 6:11:40 AM Referred By: REFERRED SELF Confirmed By:Real Mcnally
--- NOTE | 2020-11-05 06:13 | Electrocardiogram Report ---
Test Reason : Blood Pressure : / mmHG Vent. Rate : 078 BPM Atrial Rate : 073 BPM P-R Int : 000 ms QRS Dur : 092 ms QT Int : 378 ms P-R-T Axes : 000 -27 043 degrees QTc Int : 430 ms Atrial fibrillation Abnormal ECG When compared with ECG of 03-NOV-2020 10:11, Vent. rate has decreased BY 66 BPM Confirmed by Real Mcnally ([id number]) on 11/05/2020 6:12:31 AM Referred By: REFERRED SELF Confirmed By:Real Mcnally
[2020-11-05 06:25] LABS: BUN Creatinine Ratio 22.1 (10-20); Calcium 8.3 mg/dl (8.5-10.1); Creatinine Clr Calc Pharmacy 57.6 ml/min; Est GFR (African American) 81.5; Est GFR (Non-African American) 70.3; Magnesium 2.1 mg/dl (1.8-2.4); Potassium 3.6 mmol/L (3.5-5.1)
[2020-11-05 06:28] LABS: Estimated Average Glucose 123 mg/dl; Hemoglobin A1C 5.9 % (4.5-5.6)
[2020-11-05 06:37] LABS: Thyroid Stimulating Hormone 3.8 uIu/ml (0.300-4.500)
--- NOTE | 2020-11-05 06:46 | Electrocardiogram Report ---
Test Reason : Blood Pressure : / mmHG Vent. Rate : 081 BPM Atrial Rate : 081 BPM P-R Int : 168 ms QRS Dur : 086 ms QT Int : 406 ms P-R-T Axes : 050 -20 020 degrees QTc Int : 471 ms Normal sinus rhythm Nonspecific ST abnormality Abnormal ECG When compared with ECG of 03-NOV-2020 10:38, Sinus rhythm has replaced Atrial fibrillation Confirmed by Real Mcnally ([id number]) on 11/05/2020 6:46:40 AM Referred By: REFERRED SELF Confirmed By:Real Mcnally
[2020-11-05] MEDS ORDERED: ASPIRIN 81 MG ECTAB PO SCH (09:00)
[2020-11-05] MEDS: METOPROLOL TARTRATE 50 MG TAB PO SCH ×2 (09:24→17:00)
[2020-11-05] MEDS: APIXABAN 5 MG TABLET PO SCH (09:25)
[2020-11-05] MEDS: CALCIUM 600MG + VIT D 400 IU TAB PO SCH (09:25)
[2020-11-05] MEDS: LOSARTAN/HCTZ 50/12.5MG TAB PO SCH (12:29)
[2020-11-05] MEDS: OMEGA-3 (PURIFIED FISH OIL) 1 GM CAP PO SCH (12:29)
[2020-11-05] MEDS: MULTIVITAMIN TAB PO SCH (12:29)
--- NOTE | 2020-11-05 12:56 | Discharge Summary ---
Date of Service November 05, 2020 Admission HPI Per Admitting Provider 85 YOF with past medical history of CAD, CABG x2, Porcine AVR, afib on Apixaban, HTN, HLD, OA, Obesity, Carotid artery stenosis, benign breast biopsy for lump. Brought to the emergency room today post multiple falls. The patient fell backwards Thursday off her front porch onto her back and hitting her head, she also fell while getting out of bed and yesterday in tripped over a carpet. The patient states that she just looses her balance and is not pre- cursed by any light headedness, dizziness, chest pain, or weakness of her legs. After her fall on Thursday she said she "saw stars" and also had some nausea that started on Thursday. The patient has not taken any of her medications including her Apixabn since then. She was afib with RVR in the EMD with HR 150- 160 and was given Diltiazem IV bolus x2, which decreased her HR 90-120. She also had a non-conCT scan of the head, neck, and chest, abdomen and pelvis, and Xray films of her humerus. The hospitalist service was notified for admission. Patient was neurologically intact with noted bruising to her posterior neck, lateral neck extending to her right clavicle and chest. She is comfortably resting in bed and appropriate. Patient will be admitted for HR control, trend troponin and ECG, Pain control, PT/OT consults. Principal Diagnosis Postconcussive syndrome, recurrent falls, rapid atrial fibrillation Discharge Exam Constitutional WD/WN, vitals as above Eyes PERRL, conjunctivae normal, anicteric sclerae EOM intact bilaterally; no nystagmus ENMT external ear and nose normal, oropharynx normal Posterior scalp with 4 cm hematoma with dried blood, with mild tenderness palpation Neck trachea midline, no thyromegaly Respiratory normal respiratory effort, lungs clear to auscultation Cardiovascular Rate/Rhythm: regular rate and regular rhythm Heart Sounds: + murmur (2/6 YONATAN at RUSB) Extremities: no edema Chest (Breasts) Chest: normal inspection of chest Gastrointestinal (Abdomen) normal bowel sounds, soft, nontender, no hepatosplenomegaly Musculoskeletal Extremities: extremities normal to inspection; no cyanosis and no clubbing Skin no rashes, warm and dry Large areas of ecchymosis on left posterior upper arm, entire posterior neck and now down on the right lateral and anterior neck, left posterior chest wall, left inner thigh Neurologic PERRL, EOMI, accommodation nl, no face palsy, no dysarthria CN's II-XI intact bilaterally, moves all extremities and awake; no focal motor deficits and not confused Psychiatric A+Ox3, euthymic affect Lymphatic no lymphedema Discharge Data Allergies Allergy/AdvReac Type Severity Reaction Status Date / Time No Known Allergies Allergy Verified 11/03/20 11:35 Consultations 11/03/20 11:51 ED Decision to Admit Stat 11/04/20 13:43 Consult Neurology Routine Ordered Studies 11/03/20 10:06 CT abd pelvis IV con only Stat CT cervical spine wo con Stat CT chest diagnostic w con Stat CT head/brain wo con Stat 11/03/20 15:37 US carotid doppler BI Routine 11/04/20 09:32 MR brain wo/w con Urgent Abdomen/Pelvis CT 11/03/20 10:[address] WITH CONTRAST, ABDOMEN AND PELVIS CT WITH INTRAVENOUS CONTRAST CT DOSE: HISTORY: Right-sided chest and right-sided abdominal pain. fall on eliquis TECHNIQUE: Multiaxial CT images of the chest, abdomen, and pelvis were performed following the intravenous administration of contrast. A dose lowering technique was utilized adhering to the principles of ALARA. COMPARISON: None. FINDINGS: Chest CT: There are poststernotomy changes. No fractures within the visualized osseous structures of the chest. No mediastinal hematoma or lymphadenopathy. The heart is top normal in size. No pleural or pericardial effusions. Normal caliber esophagus. Moderate calcified plaque within the normal caliber thoracic aorta. No evidence for an aortic dissection. The central pulmonary arteries are patent. No pneumothorax. The central airways are patent. A few small linear densities within the lung bases consistent with subsegmental atelectasis/scarring. No focal lung consolidations. Punctate calcified granuloma within the right lung apex. Abdomen/pelvis CT: No pneumoperitoneum. No pneumatosis. No acute fractures within the visualized osseous structures. The liver, gallbladder, adrenal glands, pancreas, and kidneys are within normal limits. There is a punctate calcified granuloma within the spleen. Tiny fat-containing umbilical hernia. No pelvic free fluid. The bladder is unremarkable. Prior hysterectomy. No retroperitoneal hematoma or lymphadenopathy. Extensive calcified plaque within the normal caliber abdominal aorta. No bowel wall thickening or obstruction. Colonic diverticulosis. No evidence for acute diverticulitis. Normal appendix. IMPRESSION: 1. No acute traumatic process within the chest, abdomen, or pelvis. 2. Additional findings as described above. ACT 112: Negative or not required by law. Electronically signed by: Jonathan Bardales M.D. 11/03/2020 11:[address] 11/03/20 10:[address] DOSE: 3835.75 mGy.cm HISTORY: Neck pain. fall on eliquis TECHNIQUE: Multiaxial CT images of the cervical spine were performed and reformatted in the sagittal and coronal plane without the use of contrast. A dose lowering technique was utilized adhering to the principles of ALARA. COMPARISON: None. FINDINGS: No fractures. No subluxation. Prevertebral soft tissues and the C1-C2 interval are intact. No pneumothorax. IMPRESSION: No fractures within the cervical spine. ACT 112: Negative or not required by law. Electronically signed by: Jonathan Bardales M.D. 11/03/2020 11:[address] 11/03/20 10:[address] WITH CONTRAST, ABDOMEN AND PELVIS CT WITH INTRAVENOUS CONTRAST CT DOSE: HISTORY: Right-sided chest and right-sided abdominal pain. fall on eliquis TECHNIQUE: Multiaxial CT images of the chest, abdomen, and pelvis were performed following the intravenous administration of contrast. A dose lowering technique was utilized adhering to the principles of ALARA. COMPARISON: None. FINDINGS: Chest CT: There are poststernotomy changes. No fractures within the visualized osseous structures of the chest. No mediastinal hematoma or lymphadenopathy. The heart is top normal in size. No pleural or pericardial effusions. Normal caliber esophagus. Moderate calcified plaque within the normal caliber thoracic aorta. No evidence for an aortic dissection. The central pulmonary arteries are patent. No pneumothorax. The central airways are patent. A few small linear densities within the lung bases consistent with subsegmental atelectasis/scarring. No focal lung consolidations. Punctate calcified granuloma within the right lung apex. Abdomen/pelvis CT: No pneumoperitoneum. No pneumatosis. No acute fractures within the visualized osseous structures. The liver, gallbladder, adrenal glands, pancreas, and kidneys are within normal limits. There is a punctate calcified granuloma within the spleen. Tiny fat-containing umbilical hernia. No pelvic free fluid. The bladder is unremarkable. Prior hysterectomy. No retrop eritoneal hematoma or lymphadenopathy. Extensive calcified plaque within the normal caliber abdominal aorta. No bowel wall thickening or obstruction. Colonic diverticulosis. No evidence for acute diverticulitis. Normal appendix. IMPRESSION: 1. No acute traumatic process within the chest, abdomen, or pelvis. 2. Additional findings as described above. ACT 112: Negative or not required by law. Electronically signed by: Jonathan Bardales M.D. 11/03/2020 11:[address] 11/03/20 10:[address] DOSE: HISTORY: fall on eliquis TECHNIQUE: Multiaxial CT images of the head were performed without the use of intravenous contrast. Automated exposure control was utilized for this study. A dose lowering technique was utilized adhering to the principles of ALARA. Comparison: None. Findings: The paranasal sinuses and mastoid air cells are clear. The calvarium and skull base are intact. There is no mass, hematoma, midline shift, acute infarct. White matter hypodensity is nonspecific but suggestive of microvascular ischemic change. The ventricles and sulci demonstrate mild age-related involutional changes. Posterior scalp hematoma. Impression: No acute intracranial abnormality. Posterior scalp hematoma. ACT 112: Negative or not required by law. Electronically signed by: Jonathan Bardales M.D. 11/03/2020 11:28 AM Humerus X-Ray 11/03/20 11:00 XR humerus LT 2V CLINICAL HISTORY: Fall. Left arm pain. COMPARISON STUDY: None. FINDINGS: Soft tissue density within the distal left upper arm and visualized forearm consistent with extravasation of the recent intravenous contrast. No fracture or dislocation within the left humerus. Old, healed left rib fractures are noted. Incomplete ossification versus an old nonunited fracture at the acromion. The bones are osteopenic. The contrast extravasation partially obscures the distal left humerus. IMPRESSION: 1. No definite fracture or dislocation within the left humerus. 2. Abnormal soft tissue density within the left elbow consistent with extravasation of intravenous contrast. ACT 112: Negative or not required by law. Electronically signed by: Jonathan Bardales M.D. 11/03/2020 12:42 PM Humerus X-Ray 11/03/20 12:31 XR humerus RT 2V CLINICAL HISTORY: fall. Right arm pain. COMPARISON STUDY: None. FINDINGS: No fracture or dislocation within the right humerus. No soft tissue swelling. 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 IMPRESSION: No fracture or dislocation within the right humerus. ACT 112: Negative or not required by law. Electronically signed by: Jonathan Bardales M.D. 11/03/2020 12:44 PM Tibia/Fibula X-Ray 11/03/20 14:03 XR tibia fibula LT 2V CLINICAL HISTORY: s/p fall, ecchymosis, tender. Rule out fracture. COMPARISON STUDY: Left tibia/fibular 12/15/2019. FINDINGS: Surgical clips within the proximal left lower leg. Mild osteoarthritis within the left knee. The bones are osteopenic. No fracture or dislocation within the left tibia or fibula. There is anterior soft tissue swelling. IMPRESSION: Anterior soft tissue swelling within the left lower leg. No fractures. ACT 112: Negative or not required by law. Electronically signed by: Jonathan Bardales M.D. 11/03/2020 2:45 PM Carotid Doppler Study 11/03/20 15:37 CAROTID ARTERY ULTRASOUND CLINICAL HISTORY: carotid artery stenosis, falls, last (2017) COMPARISON STUDY: Carotid ultrasound February 03, 2014. TECHNIQUE: Real-time, grayscale, and color Doppler sonography of the carotid and vertebral arteries was performed. Images were viewed in the transverse and longitudinal planes. FINDINGS: There is moderate atherosclerotic plaque. Velocity measurements are listed below. COMMON CAROTID PEAK SYSTOLIC VELOCITY (CM/S): RIGHT 68 LEFT 94 ICA PEAK SYSTOLIC VELOCITY (CM/S): RIGHT 95 LEFT 110 Systolic ratios between the internal to common carotid arteries are normal. Antegrade flow is seen in the vertebral arteries. The external carotid arteries are patent. IMPRESSION: No evidence for a hemodynamically significant stenosis. ACT 112: Negative or not required by law. Electronically signed by: Corky Noble M.D. 11/04/2020 8:17 AM Brain MRI 11/04/20 09:32 MRI OF THE BRAIN WITHOUT AND WITH IV CONTRAST CLINICAL HISTORY: ataxia,falls COMPARISON STUDY: Head CT November 03, 2020. TECHNIQUE: Utilizing a 1.5 [place] magnet and dedicated coil, multiplanar, multiecho imaging of the brain was performed pre and postcontrast administration. IV administration of 9 mL of Gadavist contrast was uneventful. Thin cut axial images through the internal auditory canals were obtained. FINDINGS: There are no foci of restricted diffusion to suggest acute infarct. No acute intracranial hemorrhage, midline shift or mass effect is present. Ventricular system is normal. Basilar cisterns are patent. There are no extra- axial collections. Flow-voids for the major intracranial vessels are present. There is no mass or abnormal enhancement within the internal auditory canals. There is no mastoid effusion. No cerebellopontine angle mass is present. Note is made of a 2 mm focus of susceptibility artifact within the posterior right temporal lobe on gradient echo sequence. Numerous small white matter T2 hyperintense foci suggest mild small vessel disease. There is a right posterior scalp contusion. IMPRESSION: 1. No acute intracranial findings. 2. No mass or abnormal enhancement within the internal auditory canals. 3. Right posterior scalp contusion. 4. 2 mm focus of susceptibility artifact within the posterior right temporal lobe which suggests trace old blood products. ACT 112: Negative or not required by law. Electronically signed by: Corky Noble M.D. 11/04/2020 1:34 PM Hospital Course (1) Fall: patient status post fall with concussive symptoms afterwards (nausea, headache) which are intermittent. Patient reports initial fall last Thursday was due to a misstep and fell down 1 step into the garage and landed flat on her back striking her head on the ground resulting in large hematoma and multiple bruises on posterior neck and back and scalp. Since then, has had intermittent imbalance and dizziness, and headaches with nausea. Had a second fall because she has been dizzy since that time. Most likely postconcussive syndrome causing her second fall due to dizziness. She presented with rapid atrial fibrillation but since has converted to normal sinus rhythm, still is having similar symptoms to previous and is not related to the atrial fibrillation. MRI of the brain-negative for stroke. There is a 2 mm focus of susceptibility artifact in the posterior right temporal lobe suggesting trace old blood p roducts-I reviewed this with the neurologist who reviewed with the radiologist and this is not of any clinical significance and is likely quite old. Echocardiogram without recurrent aortic stenosis Carotid artery ultrasound without hemodynamically significant carotid artery stenosis B12 levels normal -TSH normal at 3.8 -PT/OT evaluations ordered-OT recommends home with home health, PT recommends short stay at rehab, but patient adamant about not going to rehab and is agreeable to home health instead -Most likely postconcussive syndrome -Recommend mental and physical rest without heavy exertion, no driving for at least 2 weeks until seen by PCP -She is on anticoagulation and has had 2 falls in the last week, but typically is quite active at home without any assistive devices -With multiple areas of contusion and ecchymosis but hemoglobin remained stable- have since restarted Eliquis -Consult neurology for further evaluation-appreciated (2) Imbalance: As above (3) Concussion: As above (4) AF (paroxysmal atrial fibrillation): - Per review patient normally well controlled and asymptomatic, current symptoms are likely from not taking her medications for 2-3 days. -Rate control-was treated with metoprolol 5mg IV x1 on admission followed by oral metoprolol 25mg- then resumed 25mg PO BID -Then spontaneously converted to normal sinus rhythm and doing well -Initially held Eliquis but have since restarted it now that hemoglobin stable; MRI of the brain with old blood products and a 2 mm focus but no acute bleeding -Increase metoprolol to 50 mg p.o. twice daily for hypertension and improved rate control-tolerating this dose well (5) CAD (coronary artery disease): Denies any angina or cardiac symptoms. 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 Sodium 134-135 and stable - multifactorial likely culprit is HCTZ part of her combo pill - likely not the cause of her balance/falls (8) Prediabetes: Hemoglobin A1c 5.9% No intervention needed at this time, follow as an outpatient (9) Obesity: BMI 35 Encourage low carbohydrate diet and weight loss (10) Osteoarthritis: Hips, knees, - Tylenol PRN (11) Hypertension: Blood pressures are quite elevated at times and now improved on higher dose of metoprolol Increase metoprolol dose to 50 mg p.o. twice daily, and will continue home dose of losartan/HCT (12) S/P AVR: Noted as above (13) DVT prophylaxis: Eliquis Disposition-stable for discharge to home with home health, patient declined rehab placement I certify that this patient is under my care and that I, or a physicians instructional support assistant working with me, had a face to-face encounter that meets the home health [id number] encounter requirements with this patient. The encounter with the patient was in whole, or in part, for the following medical condition, which is the primary reason for home health care (list medical condition): I certify that, based on my findings, the following services are medically necessary home health services: My clinical findings support the need for the above services because: Further, I certify that my clinical findings support that this patient is homebound (i.e. absences from home require considerable and taxing effort and are for medical reasons or sikhism services or infrequently or of short duration when for other reasons) because: Certification for Home Health Services: Based on the above findings, I certify that this patient is confined to the home and needs intermittent fci care, physical therapy and/or speech therapy or continues to need occupational therapy. The patient is under my care, and I have initiated the establishment of the plan of care. This patient will be followed by a physician who will periodically review the plan of care. Total Time Total Time Spent Total Time Spent (In Minutes): 40 min Total Time Includes: Examination of the Patient, Discharge Planning, Medication Reconciliation and Communication With Other Providers (Neurology) Discharge Plan Discharge Items Patient Disposition: Home - Home Health Services Reason For Visit: FALLS Discharge Diagnosis: Recurrent falls, dizziness secondary to postconcussive syndrome, rapid atrial fibrillation Condition on Discharge: Fair Activity: As commented below Lifting: No more than 5 pounds Bathing: No limitations Exercise/Sports: Gradually increase as tolerated Exercise Comment: Try to make an effort to walk slowly to avoid falls. PT/OT to evaluate Driving/Machine Use: No driving for at least 2 weeks until seen by primary care physician Weightbearing: Full weightbearing Weightbearing Comment: Please use a four-point cane with all ambulation. Non-emergency contact: Primary Care Provider and Tax Lawyer Call non-emergency contact if: you have any medication questions and your symptoms worsen Follow-up/Referrals: Abel Ballard MD [Primary Care Provider] - 11/08/20 11:00 am (WILL SEE MS. MARK WEBB PA-C) Diet: Heart Healthy [facility] Attending Provider Instructions: You were admitted due to recurrent falls and dizziness which is likely from a concussion from your first fall when you hit your head. You had a work-up which included a brain MRI which was negative for stroke. An ultrasound of the carotids did not show any significant narrowing of the blood vessels. The echocardiogram of your heart showed that your aortic valve is functioning normally and otherwise was stable from previous. You had rapid atrial fibrillation which is an irregular heart rhythm and fast heart rate upon admission. Your heart converted to a normal rhythm and your metoprolol dose was increased to 50 mg twice a day to better control your heart rate. Please follow-up with your primary care physician within 1 week after discharge. Pending Studies at Discharge: No Stand-Alone Forms: [facility] Medications and DC Order Prescriptions: New metoprolol tartrate 50 mg Tablet 50 mg PO BID Qty: 180 RF: 0 Continued atorvastatin 40 mg tablet 40 mg PO HS Qty: 90 RF: 3 losartan-hydrochlorothiazide 100-25 mg tablet 1 tab PO DAILY Qty: 90 RF: 3 apixaban 5 mg tablet 5 mg PO BID Qty: 180 RF: 3 coenzyme Q10 100 mg capsule 100 mg PO DAILY RF: 0 aspirin 81 mg tablet,delayed release (DR/EC) 81 mg PO DAILY RF: 0 multivitamin [Daily Multi-Vitamin] Tablet 1 tab PO DAILY RF: 0 Qunol with Turmeric 1,000 mg capsule 1,000 mg PO DAILY RF: 0 calcium carbonate-vitamin D3 [Calcium 600 + D(3)] 600 mg(1,500mg) -400 unit Tablet 1 tab PO DAILY RF: 0 [id number]-tso-wmkilqu-ast [krill oil] 1,[id number] mg Capsule 1 cap PO DAILY RF: 0 Discontinued metoprolol tartrate 25 mg tablet 25 mg PO BID Qty: 180 RF: 3 Discharge Orders: Discharge Order (Routine); Ordered 11/05/20 Ordered By: Deepthi Holloway Admission Data Admit Date/Time: 11/03/20 13:44 Attending Provider: Deepthi Holloway Admit Provider: Miguel Pearson Primary Care Provider: Abel Ballard Other Providers: Siuta,MiguelAden Frederick Coding Level of Care Code D/C Day Management >30 mins Diagnoses Fall W19.XXXA Encounter type: initial encounter Imbalance R26.89 Concussion S06.0X9A AF (paroxysmal atrial fibrillation) I48.0 CAD (coronary artery disease) I25.10 Coronary Disease-Associated Artery/Lesion type: [place] artery [place] vs. transplanted heart: [place] heart Associated angina: without angina Troponin level elevated R77.8 Hyponatremia E87.1 Prediabetes R73.03 Obesity E66.09; Z68.35 Obesity type: due to excess calories Obesity classification: adult class 2 (BMI 35 - 39.9) Serious obesity comorbidity presence: unspecified whether serious comorbidity present Body mass index: BMI 35.0-35.9 Osteoarthritis M19.91 Osteoarthritis location: unspecified site Osteoarthritis type: primary Hypertension I10 S/P AVR Z95.2 DVT prophylaxis Z29.9
--- NOTE | 2020-11-05 13:50 | Neurology Consultation ---
Date of Consultation November 05, 2020 Assessment & Plan (1) Atrial fibrillation with RVR: (2) Recurrent falls: (3) Concussion: Amber Pham is an 85 yo woman w/ PMH of CAD s/p CABG x2, HTN, HLD, prediabetes, known carotid artery stenosis, known aortic stenosis, and AFib on apixaban who p/t [facility] on 11/03/20 after fever, headache, chest pain, LUE pain, N/V and several falls, found to be in AFib with RVR. # Recent head injury with post-concussive symptoms: residual headache and dizziness has resolved per patient report - would consider starting magnesium 400mg daily for headache prevention if headaches resume after discharge (would continue for at least one month, and if headaches resolve, ok to stop). Can use tylenol 500-1000mg daily as needed for headaches (no more than 2-3 times per week to prevent rebound headaches or chronification of post-concussive headaches) - if not interested in inpatient rehab, ok to do outpatient PT for concussive symptoms (recommend [facility]). Can also do gait training at the same time. She would prefer someone who could do PT at home if possible. - anticipate that symptoms will get better over the next month. If no improvement, would recommend that she schedule an appointment with neurology at that time for follow up. # Cerebral microhemorrhages: noted to have 2 lobar microhemorrhages on MRI brain which raises the c/f possible CAA (does not meet formal criteria until there are >=5 microhemorrhages) - would repeat MRI brain w/o in 1 year to f/u on number of microhemorrhages. If 5 or more microhemorrhages noted, would need to have a serious discussion on safety of continuing AC vs just ASA 81mg daily given increased risk of lobar hemorrhages in pts with CAA on AC Thank you for this interesting consult. Plan of care discussed with primary team. Please call or text with questions. History of Present Illness Attending Physician: Deepthi Holloway MD History of Present Illness Amber Pham is an 85 yo woman w/ PMH of CAD s/p CABG x2, HTN, HLD, prediabetes, known carotid artery stenosis, known aortic stenosis, and AFib on apixaban who p/t [facility] on 11/03/20 after fever, headache, chest pain, LUE pain, N/V and several falls, found to be in AFib with RVR. In the ED, she was afebrile, BP 132/85, heart rate 152, respiratory 21, satting 96% on room air. Initial EKG showed A. fib with RVR, for which she was given diltiazem bolus and started on dilt drip. Initial labs show WBC 8.34, hemoglobin 14.4, platelets 241, sodium low at 131, potassium 3.5, chloride low at 97, BUN 13, creatinine 0.6, glucose 177, LFTs within normal, CK 42, troponin mildly elevated 0.197, pro calcitonin less than 0.05, lactate 1.9, UA no infection, A1c 5.9, calcium borderline low 8.3, B12 1323, LDL 47, TSH within normal, Covid negative. Imaging independently reviewed. CT head shows no hemorrhage or hypodensity, right posterior scalp hematoma noted. MRI brain shows no acute infarct, mild SVID, mild generalized atrophy with ex vacuo dilation, 2 chronic microhemorrhages noted, and right posterior scalp hematoma again noted. Carotid Doppler shows no significant ICA stenosis. On examination today, she reports that she fell last week while bringing the coffee container in from her garage. Denies any associated dizziness/lightheadedness or pre-syncopal symptoms. Reports that she just missed the stair into her home leading to the fall. Had one other fall in her bedroom last week when she became entangled in her comforter. Does have intermittent headaches present upon waking that usually resolve without medications within a few hours of waking. Denies any current headache, numbness, tingling, weakness, chest pain, nausea, dizziness, vision changes or other post-concussive symptoms at this time. Allergies Allergy/AdvReac Type Severity Reaction Status Date / Time No Known Allergies Allergy Verified 11/03/20 11:35 Home Medications Medication Instructions Recorded Confirmed Type atorvastatin 40 mg tablet 40 mg PO HS #90 tab 12/02/19 11/03/20 Rx Qunol with Turmeric 1,000 mg PO DAILY 12/06/19 11/03/20 History aspirin 81 mg tablet,delayed 81 mg PO DAILY 12/06/19 11/03/20 History release multivitamin 1 tab PO DAILY 12/06/19 11/03/20 History coenzyme Q10 100 mg capsule 100 mg PO DAILY 12/15/19 11/03/20 History losartan 100 1 tab PO DAILY #90 tab 05/01/20 11/03/20 Rx mg-hydrochlorothiazide 25 mg tablet apixaban 5 mg tablet 5 mg PO BID #180 tab 07/02/20 11/03/20 Rx metoprolol tartrate 25 mg tablet 25 mg PO BID #180 tab 08/01/20 11/03/20 Rx calcium carbonate-vitamin D3 1 tab PO DAILY 11/03/20 11/03/20 History [Calcium 600 + D(3)] [id number] 1 cap PO DAILY 11/03/20 11/03/20 History [krill oil] metoprolol tartrate 50 mg PO BID #180 tab 11/05/20 Rx Patient History Medical History AF (paroxysmal atrial fibrillation) Aortic stenosis CAD (coronary artery disease) Carotid artery stenosis Hypercholesterolemia Hypertension Hyponatremia Mitral regurgitation NSTEMI (non-ST elevated myocardial infarction) Prediabetes Renal insufficiency Surgical History H/O aortic valve replacement bio-prosthetic valve H/O shoulder surgery Left, 1989' History of bladder surgery suspension History of total abdominal hysterectomy and bilateral salpingo-oophorectomy 1976 S/P CABG x 2 (~12/15/16) Family History Mother Cancer Father COPD (chronic obstructive pulmonary disease) Social History Smoking Status: Never smoker Second Hand Exposure: No; Hx Alcohol Use: No Hx Substance Use: No Preferred Language: Irish Communication Ability: Effective Visual Impairment: No Limitations Hearing Ability: Normal Manager 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 Exam (Neuro) Physical Exam: General Exam: GEN: NAD, sitting in chair. HEENT: No conjunctival injection, no rhinorrhea. CV: RRR, no peripheral edema PULM: Nonlabored respirations on room air. Neuro Exam: MS: Awake and Alert. Oriented to person, place, and month/year. Speech fluent and appropriate without dysarthria or paraphasic errors. Language intact including naming, comprehension, repetition. Cognition and memory grossly intact. Attention intact. No neglect. CN: Visual teixeira full. No extinction to double simultaneous stimuli. Unable to visualize fundi on fundoscopic exam. PERRLA OU. EOMI without nystagmus. Facial sensation intact to LT. Facial muscles full and symmetric. Hearing intact to conversation. Shoulder shrug normal. Tongue midline. MOTOR: Normal bulk and tone. No pronator drift. BUE strength 5/5 at deltoids, biceps, triceps, wrist flexors and extensors, and hand grasp bilaterally. BLE strength 5-/5 at iliopsoas, hamstrings, quadriceps, tibialis anterior, and gastrocnemius bilaterally. REFLEXES: Trace at biceps, triceps, brachioradialis, absent patella and absent Achilles bilaterally. Flexor plantar responses bilaterally. SENSORY: Intact to LT without extinction to double simultaneous stimuli. Vibration mildly diminished in BLEs up to the knees. COORDINATION: No dysmetria or ataxia on [id number] bilaterally. Normal Lew bilaterally. GAIT: Normal gait and arm swing. Normal Romberg. Results & Data ([facility]) Vital Signs (Past 12 Hours) Vital Signs Temp Pulse Pulse Resp BP BP Pulse Ox 11/05/20 11:31 36.7 C 68 19 178/97 H 97 11/05/20 08:00 77 11/05/20 06:59 36.7 C 87 19 157/83 H 97 11/05/20 04:00 36.8 C 70 18 160/78 H 97 PG Care Time/CCT Total # of Minutes Spent Total Time Spent with Patient: Total time spent is greater than 50% in coordination of care (as documented) at patient's floor/unit and/or counseling patient: Coding Level of Care Code 05191 Initial Inpt Care Lvl 3 Diagnoses Atrial fibrillation with RVR I48.91 Recurrent falls R29.6 Concussion S06.0X9A
[2020-11-05] MEDS ORDERED: Nursing to Pharmacy Communication SCH (16:45)
[2020-11-05] MEDS ORDERED: hydrALAZINE HCL 20 MG/ML VIAL IV STA (17:45)
== END 2020-11-05 19:27 | disposition home health service (06) | DRG 89 ==
LOC: ED 10:01 → 2S 13:44 → SUATTDRO 13:44 → 2S 15:29

== ENCOUNTER 2022-08-09 10:45 | Inpatient (IN) ==
[2022-08-09] MEDS ORDERED: SODIUM CHLORIDE 0.9% 1000ML 1,000 ML IV ONE (11:07)
[2022-08-09] MEDS ORDERED: METOPROLOL TARTRATE 1 MG/ML VIAL IV STA (11:08)
--- NOTE | 2022-08-09 11:14 | Emergency Department Note ---
Impression & Plan Fall, Atrial fibrillation with RVR, Elevated CK, COVID-19, Slurring of speech ED Provider Note Provider: Khalif Sheehan MD DATE OF SERVICE: 08/09/2022 CHIEF COMPLAINT: Found on floor, garbled speech HISTORY OF PRESENT ILLNESS: Patient is a 87-year-old female past medical history including CAD, carotid artery stenosis, paroxysmal atrial fibrillation on Eliquis, hypertension, natremia, arthritis presenting here today after being found on floor by family. Last heard from her the beginning of the week. Lives by herself. Family went to check on her today as they have not heard from her a nd found her on the floor in her bathroom. Was pushed up against the door. Unsure how long exactly she was down there but the family guess based on her pillbox she last took her medicines they believe yesterday morning. Is normally on Eliquis and digoxin as well as additional other medicines. Patient herself is not the best historian. She states that she members everything present would tell me how she ended up on the floor. Initially states that she is here because her granddaughter with injured. She denies pain or dizziness. Denies numbness or weakness. Daughter reports perhaps the patient complained of some right foot pain earlier but the patient denies this now. Patient states she wishes to go home. Patient states she is thirsty. She denies nausea or vomiting. Denies chest pain or shortness of breath. PAST MEDICAL HISTORY: As noted above MEDICATIONS: Reviewed home medications but appears have not taken the today if not longer. SOCIAL HISTORY: Non-smoker, lives by herself PHYSICAL EXAM: GENERAL: alert and oriented to person but not well to events in no acute dist ress on stretcher Head: normocephalic and atraumatic with a few healing but appear to be vesicular cold sores across the upper lip. EYES: No injection, discharge or icterus. PERRL, EOMI. NECK: Trachea midline. Supple. ENT: Mucous membranes pink however dry. Pharynx without erythema or exudate. LUNGS: Airway patent. No retractions. Breath sounds clear with good air entry bilaterally. HEART: Tachycardic, regular regular rate and rhythm. No chest wall tenderness ABDOMEN: Soft and non-tender, without guarding or rebound. No masses BACK: No bilateral flank tenderness. SKIN: Acyanotic, warm, dry, some slight bruising on the mid back. EXTREMITIES: Without tenderness and no significant swelling with some old healed contusions on the shins. Soft compartments. Healing bruising on the posterior elbows bilaterally without significant tenderness. No tenderness of the forearms or hands. NEUROLOGICAL: Patient follows commands and moves all extremities. No significant drift in the upper or lower extremities. Slight intention tremor. Patient with some garbled speech but no obvious facial droop. EK bpm atrial fibrillation with rapid ventricular response. A bit of artifact but some questionable lateral ST depression. Left axis is noted. No clear acute ST segment elevation. QTc 425. CONTINUOUS CARDIAC MONITORING: was ordered and showed a heart rate of 80s-120s bpm in atrial fibrillation GCS 15. Patient's laboratory studies and imaging reviewed. Differential includes Infection, dehydration, metabolic abnormality, hypo/hyperglycemia, electrolyte disturbance, anemia, hypoxia, cardiac sources, intracerebral event, toxicologic, neurologic, as well as other pathologies. IMPRESSION/MEDICAL DECISION MAKING: Patient found down on the floor unclear how long. Has some scattered bruises on the body but no evidence of severe trauma. She denies complaints but is not a good historian. Patient's daughter and son at bedside provide additional history. Patient is noted to be in rapid A. fib and has a history of A. fib. Appears to been off her medications for about 24 hours best guess. Is normally on Eliquis. Outside the timeframe for thrombolytic but may have suffered a stroke given some slurred speech. Is grossly moving all extremities. We will complete CT of the head, as well as angiograms to look for traumatic injury as well as possible stroke findings. Chest x-ray and pelvis x-ray to be obtained. No significant tenderness of the chest abdomen pelvis on clinical exam as well as soft compartments and no significant tenderness in the extremities. Doubt significant thoracic or abdominal pelvic trauma. Bruising on the elbows as well as some healing bruising on the shins but soft compartments and I doubt fracture or compartment syndrome here. No evidence of dislocation. Grossly sensation intact. Seems to be dehydrated she was on the floor for some time. CK sent in addition to basic labs. Given some IV fluid hydration. Given some IV metopr olol for rate control given her A. fib RVR. Will defer the start of full anticoagulation given the fall history at this time pending full evaluation. Metoprolol did improve rate control. X-ray of the chest pelvis and foot reviewed and radiology report reviewed without significant traumatic injury noted. Blood work here with slight leukocytosis 11.9 but no anemia. Digoxin level low consistent with not taking it. Not hypoglycemic. COVID test is positive may be contributing to her fatigue and weakness. Mild evidence of rhabdomyolysis with a CK of 477. Slightly low magnesium given IV sup plementation here. No significant renal dysfunction. Lactate not elevated. Urinalysis not impressive for infection. Mild troponin elevation likely more demand. Doubt ACS. CT reports of the head as well as the neck without significant findings of trauma or bleeding. Question if her symptoms are more related to COVID and A. fib. Will require further care at the hospital given her weakness. Hospitalist contacted DIAGNOSIS: A. fib RVR, slurred speech, COVID-19, rhabdomyolysis, hypomagnesemia DISPOSITION: Hospitalist will evaluate Critical Care I have personally spent 36 minutes of critical care time in the direct management of this patient. This includes bedside care, interpretation of diagnostic studies, and testing, discussion with consultants, patient, and family members, and other required patient management activities. These 36 minutes is in excess of all separately billable procedures. Past Med/Surg History Medical History AF (paroxysmal atrial fibrillation) Aortic stenosis CAD (coronary artery disease) Carotid artery stenosis Coccydynia Hypercholesterolemia Hypertension Hyponatremia Mitral regurgitation NSTEMI (non-ST elevated myocardial infarction) Prediabetes Surgical History H/O aortic valve replacement H/O shoulder surgery History of bladder surgery History of total abdominal hysterectomy and bilateral salpingo-oophorectomy S/P CABG x 2 (~12/15/16) Family History Mother Cancer Father COPD (chronic obstructive pulmonary disease) Denies family history of Ovarian cancer Prostate cancer Coronary heart disease Breast cancer Colorectal cancer Social History (Updated 03/26/22 @ 10:07 by Cindy Jean-Baptiste LPN) Smoking Status: Never smoker Second Hand Exposure: No; Do You Dip or Chew Tobacco: No; Hx Alcohol Use: No Hx Substance Use: No Preferred Language: Libyan Communication Ability: Effective Visual Impairment: No Limitations Hearing Ability: Normal Mechanical Expert Required: No Beliefs That Will Affect Care: None marital status: / Current Living Situation: Alone current occupational status: retired Feels Safe at Home: Yes Safety Concerns: Feels Safe At This Time Childhood Exposure to Second-Hand Smoke: No caffeine: Yes during the past year weight has: remained stable Dental Care, Regularly: Yes Physical Activity Frequency: Daily Seatbelt Use: always Sunscreen Use: No Assistive Devices: Cane Allergies Allergies Allergy/AdvReac Type Severity Reaction Status Date / Time No Known Allergies Allergy Verified 03/26/22 10:00 Home Meds Home Medications Medication Instructions Recorded Confirmed aspirin 81 mg tablet,delayed 81 mg PO DAILY 12/06/19 08/09/22 release multivitamin (Daily Multi-Vitamin 1 tab PO DAILY 12/06/19 08/09/22 tablet) calcium carbonate 600 mg-vitamin 1 tab PO DAILY 11/03/20 08/09/22 D3 10 mcg (400 unit) tablet (Calcium 600 + D(3)) krill 1,000 mg-omega-3 170 mg-dha 1 cap PO DAILY 11/03/20 08/09/22 50 mg-epa 80 [id number] capsule (krill oil) Previous Rx's Medication Instructions Recorded digoxin 125 mcg (0.125 mg) tablet 125 mcg PO DAILY #90 tabs 11/15/21 atorvastatin 40 mg tablet 40 mg PO HS #90 tabs 11/26/21 metoprolol tartrate 50 mg tablet 50 mg PO BID #180 tabs 04/14/22 apixaban 2.5 mg tablet (Eliquis) 2.5 mg PO BID #180 tabs 06/12/22 losartan 100 mg tablet 100 mg PO DAILY #14 tabs 07/02/22 Results & Data (ED) Vital Signs Vital Signs - 24 hr 08/09/22 10:55 08/09/22 11:26 08/09/22 11:00 Temperature 36.8 C Temperature Source Oral Pulse Rate 146 H 120 H 136 H Pulse Rate from SpO2 Sensor 133 H Pulse Rhythm Irregular Respiratory Rate 21 18 Respiratory Effort / Characteristics Non-Labored Spontaneous Respiratory Depth Normal Respiratory Pattern Regular Blood Pressure 185/158 H 185/158 H Blood Pressure Mean 167 Blood Pressure Position Lying Pulse Oximetry 95 95 Oxygen Delivery Method Room Air Sepsis Recent Fever Within 48 Hours No Sepsis New/Unexplained Change in Mental Status N/A Sepsis Action Taken by Nursing No Action Required 08/09/22 11:30 08/09/22 12:00 08/09/22 12:30 Temperature Temperature Source Pulse Rate 116 H 90 95 H Pulse Rate from SpO2 Sensor 114 H 89 Pulse Rhythm Respiratory Rate 21 22 20 Respiratory Effort / Characteristics Respiratory Depth Respiratory Pattern Blood Pressure 174/98 H 182/142 H 166/87 H Blood Pressure Mean 123 155 113 Blood Pressure Position Pulse Oximetry 91 91 97 Oxygen Delivery Method Sepsis Recent Fever Within 48 Hours Sepsis New/Unexplained Change in Mental Status Sepsis Action Taken by Nursing 08/09/22 13:00 08/09/22 13:30 08/09/22 14:30 Temperature Temperature Source Pulse Rate 100 H 81 107 H Pulse Rate from SpO2 Sensor 98 H 80 108 H Pulse Rhythm Respiratory Rate 20 18 23 Respiratory Effort / Characteristics Respiratory Depth Respiratory Pattern Blood Pressure 167/76 H 185/83 H 169/91 H Blood Pressure Mean 106 117 117 Blood Pressure Position Pulse Oximetry 96 94 95 Oxygen Delivery Method Sepsis Recent Fever Within 48 Hours Sepsis New/Unexplained Change in Mental Status Sepsis Action Taken by Nursing Laboratory Data 08/09/22 10:55 Lab Results 08/09/22 08/09/22 08/09/22 Range/Units 10:55 10:55 10:55 WBC 11.93 H (4.8-10.8) K/ul RBC 5.26 H (3.93-5.22) M/uL Hgb 15.1 (12.0-16.0) g/dl Hct 46.4 H (34.1-44.9) % MCV 88.2 (80.0-100.0) fL MCH 28.7 (25.0-34.0) pg MCHC 32.5 (32.0-36.0) g/dL RDW Std Deviation 51.3 H (36.4-46.3) fL RDW Coeff of Fiona 16.0 H (11.5-14.5) % Plt Count 227 (130-400) K/uL MPV 11.1 (9.4-12.3) fL Immature Gran % (Auto) 0.3 % Neut % (Auto) 80.6 % Lymph % (Auto) 11.0 % [place] % (Auto) 7.8 % Eos % (Auto) 0.0 % Baso % (Auto) 0.3 % Neut # (Auto) 9.62 H (1.4-6.5) K/uL Lymph # (Auto) 1.31 (1.2-3.4) K/uL [place] # (Auto) 0.93 H (0.24-0.82) K/uL Eos # (Auto) 0.00 (0-0.50) K/uL Baso # (Auto) 0.03 (0-0.2) K/uL Immature Gran # (Auto) 0.04 H (0.00-0.02) K/uL PT 12.6 H (9.0-12.0) Seconds INR 1.2 H (0.9-1.1) APTT 26.3 (21.0-31.0) Seconds PTT Ratio 1.0 Sodium (136-145) mmol/L Potassium (3.5-5.1) mmol/L Chloride (98-107) mmol/L Carbon Dioxide (21-32) mmol/L Anion Gap (3-11) BUN (6-23) mg/dl Creatinine (0.6-1.2) mg/dl Est Cr Clr Drug Dosing ml/min Est GFR ( Amer) ml/min Est GFR (Non-Af Amer) ml/min BUN/Creatinine Ratio (10-20) Glucose (70-99(Fasting)) mg/dl POC Glucose (70-99) mg/dl Lactate (0.4-2.0) mmol/L Calcium (8.5-10.1) mg/dl Magnesium (1.7-2.4) mg/dl Total Bilirubin (0.2-1.0) mg/dl AST (13-39) U/L ALT (7-52) U/L Alkaline Phosphatase (34-104) U/L Total Creatine Kinase (26-192) U/L Troponin I High Sens (0-14) pg/ml Total Protein (6.0-8.3) gm/dl Albumin (3.4-5.0) gm/dl Globulin (2.5-4.0) gm/dl Albumin/Globulin Ratio (0.9-2) TSH (0.300-4.500) uIu/ml Urine Color Urine Appearance (Clear) Urine pH (4.5-7.5) Ur Specific [place] (1.000-1.030) Urine Protein (Negative) Urine Glucose (UA) (Negative) Urine Ketones (Negative) Urine Blood (Negative) Urine Nitrite (Negative) Urine Bilirubin (Negative) Urine Urobilinogen (Negative) Ur Leukocyte Esterase (Negative) Urine WBC (Auto) (0-5) /hpf Urine RBC (Auto) (0-4) /hpf U Hyaline Cast (Auto) (0-5) /lpf U Epithel Cells (Auto) (0-5) /lpf Urine Bacteria (Auto) (Negative) Digoxin 0.6 L (0.8-2.0) ng/ml SARS-CoV-2, RNA, NAAT (NEGATIVE) 08/09/22 08/09/22 08/09/22 Range/Units 10:55 11:02 11:35 WBC (4.8-10.8) K/ul RBC (3.93-5.22) M/uL Hgb (12.0-16.0) g/dl Hct (34.1-44.9) % MCV (80.0-100.0) fL MCH (25.0-34.0) pg MCHC (32.0-36.0) g/dL RDW Std Deviation (36.4-46.3) fL RDW Coeff of Fiona (11.5-14.5) % Plt Count (130-400) K/uL MPV (9.4-12.3) fL Immature Gran % (Auto) % Neut % (Auto) % Lymph % (Auto) % [place] % (Auto) % Eos % (Auto) % Baso % (Auto) % Neut # (Auto) (1.4-6.5) K/uL Lymph # (Auto) (1.2-3.4) K/uL [place] # (Auto) (0.24-0.82) K/uL Eos # (Auto) (0-0.50) K/uL Baso # (Auto) (0-0.2) K/uL Immature Gran # (Auto) (0.00-0.02) K/uL PT (9.0-12.0) Seconds INR (0.9-1.1) APTT (21.0-31.0) Seconds PTT Ratio Sodium (136-145) mmol/L Potassium (3.5-5.1) mmol/L Chloride (98-107) mmol/L Carbon Dioxide (21-32) mmol/L Anion Gap (3-11) BUN (6-23) mg/dl Creatinine (0.6-1.2) mg/dl Est Cr Clr Drug Dosing ml/min Est GFR ( Amer) ml/min Est GFR (Non-Af Amer) ml/min BUN/Creatinine Ratio (10-20) Glucose (70-99(Fasting)) mg/dl POC Glucose 111 H (70-99) mg/dl Lactate (0.4-2.0) mmol/L Calcium (8.5-10.1) mg/dl Magnesium (1.7-2.4) mg/dl Total Bilirubin (0.2-1.0) mg/dl AST (13-39) U/L ALT (7-52) U/L Alkaline Phosphatase (34-104) U/L Total Creatine Kinase (26-192) U/L Troponin I High Sens (0-14) pg/ml Total Protein (6.0-8.3) gm/dl Albumin (3.4-5.0) gm/dl Globulin (2.5-4.0) gm/dl Albumin/Globulin Ratio (0.9-2) TSH 1.651 (0.300-4.500) uIu/ml Urine Color Urine Appearance (Clear) Urine pH (4.5-7.5) Ur Specific [place] (1.000-1.030) Urine Protein (Negative) Urine Glucose (UA) (Negative) Urine Ketones (Negative) Urine Blood (Negative) Urine Nitrite (Negative) Urine Bilirubin (Negative) Urine Urobilinogen (Negative) Ur Leukocyte Esterase (Negative) Urine WBC (Auto) (0-5) /hpf Urine RBC (Auto) (0-4) /hpf U Hyaline Cast (Auto) (0-5) /lpf U Epithel Cells (Auto) (0-5) /lpf Urine Bacteria (Auto) (Negative) Digoxin (0.8-2.0) ng/ml SARS-CoV-2, RNA, NAAT POSITIVE A* (NEGATIVE) 08/09/22 08/09/22 08/09/22 Range/Units 11:58 11:58 12:45 WBC (4.8-10.8) K/ul RBC (3.93-5.22) M/uL Hgb (12.0-16.0) g/dl Hct (34.1-44.9) % MCV (80.0-100.0) fL MCH (25.0-34.0) pg MCHC (32.0-36.0) g/dL RDW Std Deviation (36.4-46.3) fL RDW Coeff of Fiona (11.5-14.5) % Plt Count (130-400) K/uL MPV (9.4-12.3) fL Immature Gran % (Auto) % Neut % (Auto) % Lymph % (Auto) % [place] % (Auto) % Eos % (Auto) % Baso % (Auto) % Neut # (Auto) (1.4-6.5) K/uL Lymph # (Auto) (1.2-3.4) K/uL [place] # (Auto) (0.24-0.82) K/uL Eos # (Auto) (0-0.50) K/uL Baso # (Auto) (0-0.2) K/uL Immature Gran # (Auto) (0.00-0.02) K/uL PT (9.0-12.0) Seconds INR (0.9-1.1) APTT (21.0-31.0) Seconds PTT Ratio Sodium 142 (136-145) mmol/L Potassium 3.6 (3.5-5.1) mmol/L Chloride 113 H (98-107) mmol/L Carbon Dioxide 21 (21-32) mmol/L Anion Gap 8 (3-11) BUN 29 H (6-23) mg/dl Creatinine 0.72 (0.6-1.2) mg/dl Est Cr Clr Drug Dosing 53.5 ml/min Est GFR ( Amer) 88.5 ml/min Est GFR (Non-Af Amer) 76.4 ml/min BUN/Creatinine Ratio 40.3 H (10-20) Glucose 151 H (70-99(Fasting)) mg/dl POC Glucose (70-99) mg/dl Lactate 1.5 (0.4-2.0) mmol/L Calcium 8.0 L (8.5-10.1) mg/dl Magnesium 1.6 L (1.7-2.4) mg/dl Total Bilirubin 1.0 (0.2-1.0) mg/dl AST 37 (13-39) U/L ALT 21 (7-52) U/L Alkaline Phosphatase 64 (34-104) U/L Total Creatine Kinase 477 H (26-192) U/L Troponin I High Sens 54.5 H* (0-14) pg/ml Total Protein 5.4 L (6.0-8.3) gm/dl Albumin 3.0 L (3.4-5.0) gm/dl Globulin 2.4 L (2.5-4.0) gm/dl Albumin/Globulin Ratio 1.3 (0.9-2) TSH (0.300-4.500) uIu/ml Urine Color Yellow Urine Appearance Clear (Clear) Urine pH 5.5 (4.5-7.5) Ur Specific [place] 1.012 (1.000-1.030) Urine Protein Trace H (Negative) Urine Glucose (UA) Negative (Negative) Urine Ketones Trace H (Negative) Urine Blood Negative (Negative) Urine Nitrite Negative (Negative) Urine Bilirubin Negative (Negative) Urine Urobilinogen Negative (Negative) Ur Leukocyte Esterase Trace H (Negative) Urine WBC (Auto) 5-10 H (0-5) /hpf Urine RBC (Auto) 0-4 (0-4) /hpf U Hyaline Cast (Auto) 1-5 (0-5) /lpf U Epithel Cells (Auto) 10-20 H (0-5) /lpf Urine Bacteria (Auto) Negative (Negative) Digoxin (0.8-2.0) ng/ml SARS-CoV-2, RNA, NAAT (NEGATIVE) Administered Medications Discontinued Medications Sodium Chloride (Nss 1000ml) 1,000 mls @ 999 mls/hr IV .Q1H1M ONE Stop: 08/09/22 12:07 Last Infusion: 08/09/22 13:00 Dose: 0 mls/hr Documented By: Admin: 08/09/22 11:25 Dose: 999 mls/hr Documented By: LEONOR Magnesium Sulfate/Dextrose (Magnesium Sulfate / D5w) 1 gm in 100 mls @ 200 mls/hr IV Q30M NUVIA Stop: 08/09/22 14:14 Last Infusion: 08/09/22 15:59 Dose: 0 mls/hr Documented By: Admin: 08/09/22 14:24 Dose: 200 mls/hr Documented By: Infusion: 08/09/22 13:44 Dose: 200 mls/hr Documented By: Admin: 08/09/22 13:14 Dose: 200 mls/hr Documented By: PHIL Ioversol (Optiray 320 500ml) 120 ml IV ONCE ONE Stop: 08/09/22 13:59 Last Admin: 08/09/22 13:58 Dose: 120 ml Documented By: JEFFREY Metoprolol Tartrate (Metoprolol Tartrate 1 Mg/Ml Vial) 5 mg IV NOW STA Stop: 08/09/22 11:09 Last Admin: 08/09/22 11:26 Dose: 5 mg Documented By: LEONOR Potassium Chloride (Potassium Chloride Crtab 20 Meq Tabcr) 40 meq PO NOW STA Stop: 08/09/22 15:17 Last Admin: 08/09/22 16:23 Dose: 40 meq Documented By: LEONOR Imaging Data Radiologist's Impression: Foot X-Ray 08/09/22 11:05 XR foot RT min 3V routine CLINICAL HISTORY: fall TECHNIQUE: 3 views of the right foot were obtained. Comparison: Comparison is made to right foot radiograph 07/14/2011 FINDINGS: No fractures are present. The joint spaces are well preserved. Vascular calcif ications are noted. IMPRESSION: No evidence of acute bony injury. ACT 112: Negative or not required by law. Electronically signed by: Hollis Mercer M.D. 08/09/2022 11:50 AM Pelvis X-Ray 08/09/22 11:05 XR pelvis 1-2V routine CLINICAL HISTORY: fall TECHNIQUE: A single frontal view of the pelvis was obtained. Comparison: None available at the time of this dictation. FINDINGS: There is no evidence of an acute fracture. Joint spaces are well-preserved. Vascular calcifications are noted. IMPRESSION: No evidence of acute osseous injury. ACT 112: Negative or not required by law. Electronically signed by: Hollis Mercer M.D. 08/09/2022 11:46 AM Chest X-Ray 08/09/22 11:06 XR chest 1V portable CLINICAL HISTORY: fall TECHNIQUE: Single frontal radiograph of the chest was obtained. Comparison: Comparison is made to chest radiograph 12/07/2016 FINDINGS: Median sternotomy wires are unchanged. Cardiomegaly is noted. The aortic arch is calcified. The lungs are clear. No evidence of pleural effusion or pneumothorax. IMPRESSION: No acute chest disease. ACT 112: Negative or not required by law. Electronically signed by: Hollis Mercer M.D. 08/09/2022 11:[address] 08/09/22 11:06 CT angio head w con, CT head/brain wo con, CT angio neck with con CLINICAL HISTORY: slurred speech, fall TECHNIQUE: Contiguous axial CT images of the head were acquired from the base of the skull to the vertex without intravenous contrast administration. CT angiography of the head and neck was performed following intravenous administration of iodinated contrast. Coronal and sagittal MIPS were obtained from the axial data set and were submitted for review. Automated dose lowering techniques and/or adjustment according to patient size were utilized for this examination. All measurements were calculated based on NASCET criteria. CT DOSE: 1080.67 mGy.cm Comparison: Comparison is made to CT head 08/09/2022 FINDINGS: CT head: There is no acute intracranial hemorrhage or evidence of acute farhat torial infarction. No shift of the midline structures, mass effect, or extra- axial abnormalities are shown. Soft tissue thickening in the right posterior scalp is noted which may represent prior resolved hematoma. Lungs and soft tissues are unremarkable. CTA Neck: A 3 vessel aortic arch is shown. There is no significant atherosclerotic plaque in the aortic arch or the origins of the innominate, left common carotid, and left subclavian arteries. There is tortuosity and significant plaque near the origin of the left vertebral artery which appears chronic. The carotid arteries are without hemodynamically significant stenosis. The left vertebral artery is dominant. CTA Head: The anterior and posterior cerebral circulations are patent. origin of the left posterior cerebral artery is seen. The right vertebral artery terminates as PICA. IMPRESSION: 1. No acute intracranial hemorrhage, evidence of acute territorial infarction, or other acute intracranial disease process. 2. 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 3. No occlusion, hemodynamically significant stenosis, aneurysm, dissection, or arteriovenous malformation in the major intracranial arteries. Assessment of stenosis of the internal carotid arteries is based on NASCET criteria. ACT 112: Negative or not required by law. Electronically signed by: Hollis Mercer M.D. 08/09/2022 2:39 PM Head CTA 08/09/22 11:06 CT angio head w con, CT head/brain wo con, CT angio neck with con CLINICAL HISTORY: slurred speech, fall TECHNIQUE: Contiguous axial CT images of the head were acquired from the base of the skull to the vertex without intravenous contrast administration. CT angiography of the head and neck was performed following intravenous administration of iodinated contrast. Coronal and sagittal MIPS were obtained from the axial data set and were submitted for review. Automated dose lowering techniques and/or adjustment according to patient size were utilized for this examination. All measurements were calculated based on NASCET criteria. CT DOSE: 1080.67 mGy.cm Comparison: Comparison is made to CT head 08/09/2022 FINDINGS: CT head: There is no acute intracranial hemorrhage or evidence of acute territorial infarction. No shift of the midline structures, mass effect, or extra-axial abnormalities are shown. Soft tissue thickening in the right posterior scalp is noted which may represent prior resolved hematoma. Lungs and soft tissues are unremarkable. CTA Neck: A 3 vessel aortic arch is shown. There is no significant atherosclerotic plaque in the aortic arch or the origins of the innominate, left common carotid, and left subclavian arteries. There is tortuosity and significant plaque near the origin of the left vertebral artery which appears chronic. The carotid arteries are without hemodynamically significant stenosis. The left vertebral artery is dominant. CTA Head: The anterior and posterior cerebral circulations are patent. origin of the left posterior cerebral artery is seen. The right vertebral artery terminates as PICA. IMPRESSION: 1. No acute intracranial hemorrhage, evidence of acute territorial infarction, or other acute intracranial disease process. 2. 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 3. No occlusion, hemodynamically significant stenosis, aneurysm, dissection, or arteriovenous malformation in the major intracranial arteries. Assessment of stenosis of the internal carotid arteries is based on NASCET criteria. ACT 112: Negative or not required by law. Electronically signed by: Hollis Mercer M.D. 08/09/2022 2:39 PM Neck CTA 08/09/22 11:06 CT angio head w con, CT head/brain wo con, CT angio neck with con CLINICAL HISTORY: slurred speech, fall TECHNIQUE: Contiguous axial CT images of the head were acquired from the base of the skull to the vertex without intravenous contrast administration. CT angiography of the head and neck was performed following intravenous admini stration of iodinated contrast. Coronal and sagittal MIPS were obtained from the axial data set and were submitted for review. Automated dose lowering techniques and/or adjustment according to patient size were utilized for this examination. All measurements were calculated based on NASCET criteria. CT DOSE: 1080.67 mGy.cm Comparison: Comparison is made to CT head 08/09/2022 FINDINGS: CT head: There is no acute intracranial hemorrhage or evidence of acute territorial infarction. No shift of the midline structures, mass effect, or extra-axial abnormalities are shown. Soft tissue thickening in the right posterior scalp is noted which may represent prior resolved hematoma. Lungs and soft tissues are unremarkable. CTA Neck: A 3 vessel aortic arch is shown. There is no significant atherosclerotic plaque in the aortic arch or the origins of the innominate, left common carotid, and left subclavian arteries. There is tortuosity and significant plaque near the origin of the left vertebral artery which appears chronic. The carotid arteries are without hemodynamically significant stenosis. The left vertebral artery is dominant. CTA Head: The anterior and posterior cerebral circulations are patent. origin of the left posterior cerebral artery is seen. The right vertebral artery terminates as PICA. IMPRESSION: 1. No acute intracranial hemorrhage, evidence of acute territorial infarction, or other acute intracranial disease process. 2. 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 3. No occlusion, hemodynamically significant stenosis, aneurysm, dissection, or arteriovenous malformation in the major intracranial arteries. Assessment of stenosis of the internal carotid arteries is based on NASCET criteria. ACT 112: Negative or not required by law. Electronically signed by: Hollis Mercer M.D. 08/09/2022 2:39 PM Discharge Plan Visit Data Chief Complaint: Stroke/CVA Symptoms ED Provider: Khailf Sheehan Discharge Problem: Fall, Atrial fibrillation with RVR, Elevated CK, COVID-19, Slurring of speech Patient Disposition: Admitted As Inpatient Discharge Instructions Interventions: ED Discharge Assessment Last Done: 08/09/22 16:15
[2022-08-09 11:21] LABS: Basophils # (auto) 0.03 K/uL (0-0.2); Basophils % (auto) 0.3 %; Hematocrit (blood only) 46.4 % (34.1-44.9); Hemoglobin 15.1 g/dl (12.0-16.0); Immature Granulocytes # (auto) 0.04 K/uL (0.00-0.02); Immature Granulocytes % (auto) 0.3 %; Lymphocytes # (auto) 1.31 K/uL (1.2-3.4); Mean Corpuscular Hemoglobin 28.7 pg (25.0-34.0); Mean Corpuscular Hgb Conc 32.5 g/dL (32.0-36.0); Mean Corpuscular Volume 88.2 fL (80.0-100.0); Mean Platelet Volume 11.1 fL (9.4-12.3); Monocytes # (auto) 0.93 K/uL (0.24-0.82); Monocytes % (auto) 7.8 %; Neutrophils # (auto) 9.62 K/uL (1.4-6.5); Neutrophils % (auto) 80.6 %; Platelet Count 227 K/uL (130-400); RDW Standard Deviation 51.3 fL (36.4-46.3); Red Blood Count 5.26 M/uL (3.93-5.22); White Blood Count 11.93 K/ul (4.8-10.8)
--- NOTE | 2022-08-09 11:45 | XRay Report ---
XR chest 1V portable CLINICAL HISTORY: fall TECHNIQUE: Single frontal radiograph of the chest was obtained. Comparison: Comparison is made to chest radiograph 12/07/2016 FINDINGS: Median sternotomy wires are unchanged. Cardiomegaly is noted. The aortic arch is calcified. The lungs are clear. No evidence of pleural effusion or pneumothorax. IMPRESSION: No acute chest disease. ACT 112: Negative or not required by law. Electronically signed by: Hollis Mercer M.D. 08/09/2022 11:43 AM
[2022-08-09 11:48] LABS: INR 1.2 (0.9-1.1); Partial Thromboplastin Time 26.3 Seconds (21.0-31.0); Prothrombin Time 12.6 Seconds (9.0-12.0)
--- NOTE | 2022-08-09 11:49 | XRay Report ---
XR pelvis 1-2V routine CLINICAL HISTORY: fall TECHNIQUE: A single frontal view of the pelvis was obtained. Comparison: None available at the time of this dictation. FINDINGS: There is no evidence of an acute fracture. Joint spaces are well-preserved. Vascular calcifications are noted. IMPRESSION: No evidence of acute osseous injury. ACT 112: Negative or not required by law. Electronically signed by: Hollis Mercer M.D. 08/09/2022 11:46 AM
--- NOTE | 2022-08-09 11:51 | XRay Report ---
XR foot RT min 3V routine CLINICAL HISTORY: fall TECHNIQUE: 3 views of the right foot were obtained. Comparison: Comparison is made to right foot radiograph 07/14/2011 FINDINGS: No fractures are present. The joint spaces are well preserved. Vascular calcifications are noted. IMPRESSION: No evidence of acute bony injury. ACT 112: Negative or not required by law. Electronically signed by: Hollis Mercer M.D. 08/09/2022 11:50 AM
[2022-08-09 12:55] LABS: Albumin Globulin Ratio 1.3 (0.9-2); BUN Creatinine Ratio 40.3 (10-20); Creatinine Clr Calc Pharmacy 53.5 ml/min; Est GFR (African American) 88.5 ml/min; Est GFR (Non-African American) 76.4 ml/min; Globulin 2.4 gm/dl (2.5-4.0); Magnesium 1.6 mg/dl (1.7-2.4); Potassium 3.6 mmol/L (3.5-5.1); Total Protein 5.4 gm/dl (6.0-8.3)
[2022-08-09 13:04] LABS: Appearance Urine Clear (Clear); Bacteria Urine Automated Negative (Negative); Bilirubin Urine Negative (Negative); Blood Urine Negative (Negative); Color Urine Yellow; Glucose Urine UA Negative (Negative); Ketones Urine Trace (Negative); Leukocyte Esterase Urine Trace (Negative); Nitrite Urine Negative (Negative); Protein Urine Trace (Negative); RBC Urine Automated 0-4 /hpf (0-4); Specific Gravity Urine 1.012 (1.000-1.030); Urobilinogen Urine Negative (Negative); pH Urine 5.5 (4.5-7.5)
[2022-08-09] MEDS: MAGNESIUM SULFATE / D5W 1 GM/100 ML BAG IV SCH ×2 (13:14→14:24)
[2022-08-09 13:20] LABS: Troponin I High Sensitivity 54.5 pg/ml (0-14)
[2022-08-09] MEDS ORDERED: OPTIRAY 320 500ml IV ONE (13:58)
--- NOTE | 2022-08-09 14:41 | CT Scan Report ---
CT angio head w con, CT head/brain wo con, CT angio neck with con CLINICAL HISTORY: slurred speech, fall TECHNIQUE: Contiguous axial CT images of the head were acquired from the base of the skull to the melecio guille without intravenous contrast administration. CT angiography of the head and neck was performed f ollowing intravenous administration of iodinated contrast. Coronal and sagittal MIPS were obtained fr om the axial data set and were submitted for review. Automated dose lowering techniques and/or adjus tment according to patient size were utilized for this examination. All measurements were calculated based on NASCET criteria. CT DOSE: 1080.67 mGy.cm Comparison: Comparison is made to CT head 08/09/2022 FINDINGS: CT head: There is no acute intracranial hemorrhage or evidence of acute territorial infarction. No sh ift of the midline structures, mass effect, or extra-axial abnormalities are shown. Soft tissue thick ening in the right posterior scalp is noted which may represent prior resolved hematoma. Lungs and soft tissues are unremarkable. CTA Neck: A 3 vessel aortic arch is shown. There is no significant atherosclerotic plaque in the aor tic arch or the origins of the innominate, left common carotid, and left subclavian arteries. 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 The carotid arteries are without hemodynamically significant stenosis. The left vertebral artery is dominant. CTA Head: The anterior and posterior cerebral circulations are patent. origin of the left post erior cerebral artery is seen. The right vertebral artery terminates as PICA. IMPRESSION: 1. No acute intracranial hemorrhage, evidence of acute territorial infarction, or other acute intrac ranial disease process. 2. Hemodynamically significant stenosis near the origin of the left vertebral artery is likely chron ic. 3. No occlusion, hemodynamically significant stenosis, aneurysm, dissection, or arteriovenous malfor mation in the major intracranial arteries. Assessment of stenosis of the internal carotid arteries is based on NASCET criteria. ACT 112: Negative or not required by law. Electronically signed by: Hollis Mercer M.D. 08/09/2022 2:39 PM
--- NOTE | 2022-08-09 15:08 | History & Physical Report ---
Date of Service August 09, 2022 Assessment & Plan (1) Fall: Plan: -Admit to med tele -Patient is currently afebrile, hemodynamically stable, and stable on RA -Patient was found down this am by family, unsure of her exact last known well time but it was at least out of the window for thrombolytic therapy -CT of the head and CTA of the head/neck without acute findings but did show " 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 -Physical exam is concerning for possible ischemic or embolic stroke, she is still on eliquis for afib and also on aspirin and statin therapy -Monitor on tele/pulse ox, fall precautions, q4h neuro checks, BP parameters ordered, -Will obtain MRI of the brain WO con and TTE for further assessment, am A1C and lipid panel -PT/OT consults placed -Will have dysphagia screen prior to staring a diet -Her acute covid infection could be causing some of her symptoms, unsure at this time -AM CBC and BMP (2) Atrial fibrillation with RVR: Plan: -Patient noted to be in afib RVR on arrival to the ED -S/P 5 mg IV Lopressor in the ED and ordered 2gm IV mag, potassium is at 3.6, will also give her 40 mg PO KCL -Will de icer her am dose of PO metoprolol tartrate now and continue BID dosing -Continue Dig -Will continue with light IV hydration with with LR x 2 bags -Monitor on tele and pulse oximetry -Will hold Eliquis for now with her recent fall, can restart tomorrow if she is stable and without signs of bleeding (3) Elevated troponin: Plan: -Initial high sensitivity trop elevated at 54, patient is without chest pain or ECG changes -Likely due to demand from her fall and afib RVR -Will repeat another trop now, monitor on tele (4) COVID-19: Plan: -Found to be positive on exam -Stable on RA -Symptomatic tx for now with pulm hygiene, prn duonebs, prn robitussin, and prn O2 ordered (5) Impetigo: Plan: -Patient noted to have scabs under the BL nares, states that they were first blisters which popped -Examines like impetigo, will start TID topical mupirocin x 5 days -No signs of systemic infection at this time (6) Elevated CK: Plan: -initial elevated at 477, likely from being down for extended period of time -S/P 1L NSS in the ED, continue IV fluids, continue trending CK until it reaches a peak (7) S/P CABG (coronary artery bypass graft): Plan: -Continue aspirin (8) Hypertension: Plan: -Hemodynamically stable -Continue metoprolol and losartan (9) Hypercholesterolemia: Plan: -Hold statin while Ck is elevated, restart when stable Plan The patient was discussed with Dr. Kerr at the time of the exam History of Present Illness Chief Complaint: Found on floor with garbled speech Primary Care Provider: Berhane Ballard MD Amber is a 85 YOF with past medical history of CAD, CABG x2, Porcine AVR, afib on Apixaban, HTN, HLD, OA, Obesity, Carotid artery stenosis, benign breast bio psy for lump who presented to the [facility] ED on 08/09/22 after being found down at home by family with garbled speech. In the ED the patient was found to be afebrile, hypertensive at 185/158, and stable on RA. Labs were remarkable for a leukocytosis of 11.93 with absolute neutrophil count of 9.62, stable Hgb at 15, stable platelets at 227, INR of 1.2, stable cr at 0.72, glucose of 151, correct calcium of 8.8, mag of 1.6 otherwise stable electrolytes, LFTs WNL, ck of 477, initial high sensitivity trop of 54.5, UA showing trace protein, trace ketones, trace leukocyte esterase, 5-10 WBCs, dig level of 0.6, and covid positive. CT of the head and CTA of the head/neck was read as "1. No acute intracranial hemorrhage, evidence of acute territorial infarction, or other acute intracranial disease process. 2. 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 3. No occlusion, hemodynamically significant stenosis, aneurysm, dissection, or arteriovenous malformation in the major intracranial arteries.". Chest xray was read as "an acute chest disease". Xray of the right foot was read as "no evidence of acute bony injury". Xray of the pelvis was read as "No evidence of acute osseous injury.". Of note, the patient was noted to have an episode of afib RVR with HR in the 130's, she was given 5 mg IV metoprolol tartrate. She was also ordered 2g of IV mag, and given a 1L NSS bolus prior to admission. At the time of the exam the patient was resting comfortably in bed in no acute distress s with her Daughter and son-in-law sitting bedside, history was taken from them all. Her family states that the patient lives at home alone and is normally very independent. The patient speaks to her sister on the phone daily and her family normally sees her multiple times a week. The last time her family saw her was a week ago in person. Her sister called her daughter this am to say that the patient had not picked the phone up over the past two days when she called. They tried to call the patient who did not leaf size picker so they went to her home to check on her. They found her in the bathroom on the floor with the lights off. She was confused and not making sense so they called EMS. They inspected her pill box and she did take her morning meds yesterday but not her nightly pills. Her daughter thinks she may have fallen while getting ready yesterday. Her family has been worried about her because her bedroom and only bathroom are on the second story with 12 steps to climb. She has recently been crawling up the steps per her daughter. I spoke to the patient who is agreeable to obtain an MRI and TTE for further assessment. She denies current fevers, chills, chest pain, SOB, abdominal pain, nausea, vomiting, diarrhea, dysuria, hematuria, melena, and diarrhea. Her daughter states that she has a chronically swollen and bruised LLE from a previous fall a year ago. I asked the patient when the scabs under her nose developed, she states that she developed some blisters under her nose a week or so ago and they opened, she states that she was picking at them.I spoke to the patient and her family regarding code status, she wishes to be a DNR/DNI. Her daughter would make decisions for her if she could not make them herself. Please refer to Dr. Kerr's attestation for any changes to the treatment plan Allergies Allergy/AdvReac Type Severity Reaction Status Date / Time No Known Allergies Allergy Verified 03/26/22 10:00 Home Medications Medication Instructions Recorded Confirmed Type aspirin 81 mg tablet,delayed 81 mg PO DAILY 12/06/19 08/09/22 History release multivitamin (Daily Multi-Vitamin 1 tab PO DAILY 12/06/19 08/09/22 History tablet) calcium carbonate 600 mg-vitamin 1 tab PO DAILY 11/03/20 08/09/22 History D3 10 mcg (400 unit) tablet (Calcium 600 + D(3)) krill 1,000 mg-omega-3 170 mg-dha 1 cap PO DAILY 11/03/20 08/09/22 History 50 mg-epa 80 [id number] capsule (krill oil) digoxin 125 mcg (0.125 mg) tablet 125 mcg PO DAILY #90 tabs 11/15/21 08/09/22 Rx atorvastatin 40 mg tablet 40 mg PO HS #90 tabs 11/26/21 08/09/22 Rx metoprolol tartrate 50 mg tablet 50 mg PO BID #180 tabs 04/14/22 08/09/22 Rx apixaban 2.5 mg tablet (Eliquis) 2.5 mg PO BID #180 tabs 06/12/22 08/09/22 Rx losartan 100 mg tablet 100 mg PO DAILY #14 tabs 07/02/22 08/09/22 Rx Past Med/Surg History Medical History AF (paroxysmal atrial fibrillation) Aortic stenosis CAD (coronary artery disease) Carotid artery stenosis Coccydynia Hypercholesterolemia Hypertension Hyponatremia Mitral regurgitation NSTEMI (non-ST elevated myocardial infarction) Prediabetes Surgical History H/O aortic valve replacement H/O shoulder surgery History of bladder surgery History of total abdominal hysterectomy and bilateral salpingo-oophorectomy S/P CABG x 2 (~12/15/16) Family History Mother Cancer Father COPD (chronic obstructive pulmonary disease) Denies family history of Ovarian cancer Prostate cancer Coronary heart disease Breast cancer Colorectal cancer Social History (Updated 03/26/22 @ 10:07 by Cindy Jean-Baptiste LPN) Smoking Status: Never smoker Second Hand Exposure: No; Do You Dip or Chew Tobacco: No; Hx Alcohol Use: No Hx Substance Use: No Preferred Language: Eritrean Communication Ability: Impaired Visual Impairment: No Limitations Hearing Ability: Normal Vocational Rehabilitation Technician Required: No Beliefs That Will Affect Care: None marital status: / Current Living Situation: Alone current occupational status: retired Feels Safe at Home: Yes Safety Concerns: Feels Safe At This Time Childhood Exposure to Second-Hand Smoke: No caffeine: Yes during the past year weight has: remained stable Dental Care, Regularly: Yes Physical Activity Frequency: Daily Seatbelt Use: always Sunscreen Use: No Assistive Devices: None Review of Systems Review of Systems: Denies current fever, chills, changes in vision, hearing, taste, and smell, chest pain, SOB, cough, abdominal pain, nausea, vomiting, diarrhea, hematemesis, melena, dysuria, hematuria All systems have been reviewed and are otherwise negative. Physical Exam Physical Exam: Physical Exam: General: In no acute distress, stated age, well-nourished, non-toxic appearing HEENT: Normocephalic, atraumatic, no scleral icterus, pupils around round, symmetrical, and reactive to light, patient with healing scabs under the BL nares not currently draining, moist mucus membranes, trachea midline, no thyromegaly Chest/Pulm: No respiratory distress, symmetrical chest expansion, clear breath sounds throughout Cardiac: tachycardic rate, irregular rhythm, no murmurs noted Abdomen: Negative for ascites and bruising, normoactive bowel sounds, soft, non-tender to palpation throughout Musculoskeletal: Symmetrical and without signs of acute trauma, upper and lower extremities with full ROM, patient noted to have difficulty with coordination with ROM of the BL upper extremities. No crepitus or tenderness to palpation of the head, cervical, thoracic, or lumbar spine Extremities: Radial, dorsalis pedis, and posterior tibial pulses are intact and symmetrical, no edema noted in the BL LE's, LLE with baseline swelling and bruising as confirmed with patient and family Skin: As described above Neuro: Alert and oriented to person, place, month, but not year, patient note d to have slurred speech and minimal left-sided facial droop, CN II-XII tested, possible left facial nerve weakness, patient with positive [id number] testing BL Psych: No acute distress, calm and cooperative during the exam Results & Data Results & Data ([facility]) Vital Signs (Past 12 Hours) Vital Signs Temp Pulse Resp BP Pulse Ox O2 Del Method 08/09/22 14:30 107 H 23 169/91 H 95 08/09/22 13:30 81 18 185/83 H 94 08/09/22 13:00 100 H 20 167/76 H 96 08/09/22 12:30 95 H 20 166/87 H 97 08/09/22 12:00 90 22 182/142 H 91 08/09/22 11:30 116 H 21 174/98 H 91 08/09/22 11:00 136 H 18 95 08/09/22 11:26 120 H 185/158 H 08/09/22 10:55 36.8 C 146 H 21 185/158 H 95 Room Air Laboratory Results Abnormal lab results 08/09/22 08/09/22 08/09/22 Range/Units 10:55 10:55 10:55 WBC 11.93 H (4.8-10.8) K/ul RBC 5.26 H (3.93-5.22) M/uL Hct 46.4 H (34.1-44.9) % RDW Std Deviation 51.3 H (36.4-46.3) fL RDW Coeff of Fiona 16.0 H (11.5-14.5) % Neut # (Auto) 9.62 H (1.4-6.5) K/uL Smyth # (Auto) 0.93 H (0.24-0.82) K/uL Immature Gran # (Auto) 0.04 H (0.00-0.02) K/uL PT 12.6 H (9.0-12.0) Seconds INR 1.2 H (0.9-1.1) Chloride (98-107) mmol/L BUN (6-23) mg/dl BUN/Creatinine Ratio (10-20) Glucose (70-99(Fasting)) mg/dl POC Glucose (70-99) mg/dl Calcium (8.5-10.1) mg/dl Magnesium (1.7-2.4) mg/dl Total Creatine Kinase (26-192) U/L Troponin I High Sens (0-14) pg/ml Total Protein (6.0-8.3) gm/dl Albumin (3.4-5.0) gm/dl Globulin (2.5-4.0) gm/dl Urine Protein (Negative) Urine Ketones (Negative) Ur Leukocyte Esterase (Negative) Urine WBC (Auto) (0-5) /hpf U Epithel Cells (Auto) (0-5) /lpf Digoxin 0.6 L (0.8-2.0) ng/ml SARS-CoV-2, RNA, NAAT (NEGATIVE) 08/09/22 08/09/22 08/09/22 Range/Units 11:02 11:35 11:58 WBC (4.8-10.8) K/ul RBC (3.93-5.22) M/uL Hct (34.1-44.9) % RDW Std Deviation (36.4-46.3) fL RDW Coeff of Fiona (11.5-14.5) % Neut # (Auto) (1.4-6.5) K/uL Smyth # (Auto) (0.24-0.82) K/uL Immature Gran # (Auto) (0.00-0.02) K/uL PT (9.0-12.0) Seconds INR (0.9-1.1) Chloride 113 H (98-107) mmol/L BUN 29 H (6-23) mg/dl BUN/Creatinine Ratio 40.3 H (10-20) Glucose 151 H (70-99(Fasting)) mg/dl POC Glucose 111 H (70-99) mg/dl Calcium 8.0 L (8.5-10.1) mg/dl Magnesium 1.6 L (1.7-2.4) mg/dl Total Creatine Kinase 477 H (26-192) U/L Troponin I High Sens 54.5 H* (0-14) pg/ml Total Protein 5.4 L (6.0-8.3) gm/dl Albumin 3.0 L (3.4-5.0) gm/dl Globulin 2.4 L (2.5-4.0) gm/dl Urine Protein (Negative) Urine Ketones (Negative) Ur Leukocyte Esterase (Negative) Urine WBC (Auto) (0-5) /hpf U Epithel Cells (Auto) (0-5) /lpf Digoxin (0.8-2.0) ng/ml SARS-CoV-2, RNA, NAAT POSITIVE A* (NEGATIVE) 08/09/22 Range/Units 12:45 WBC (4.8-10.8) K/ul RBC (3.93-5.22) M/uL Hct (34.1-44.9) % RDW Std Deviation (36.4-46.3) fL RDW Coeff of Fiona (11.5-14.5) % Neut # (Auto) (1.4-6.5) K/uL Smyth # (Auto) (0.24-0.82) K/uL Immature Gran # (Auto) (0.00-0.02) K/uL PT (9.0-12.0) Seconds INR (0.9-1.1) Chloride (98-107) mmol/L BUN (6-23) mg/dl BUN/Creatinine Ratio (10-20) Glucose (70-99(Fasting)) mg/dl POC Glucose (70-99) mg/dl Calcium (8.5-10.1) mg/dl Magnesium (1.7-2.4) mg/dl Total Creatine Kinase (26-192) U/L Troponin I High Sens (0-14) pg/ml Total Protein (6.0-8.3) gm/dl Albumin (3.4-5.0) gm/dl Globulin (2.5-4.0) gm/dl Urine Protein Trace H (Negative) Urine Ketones Trace H (Negative) Ur Leukocyte Esterase Trace H (Negative) Urine WBC (Auto) 5-10 H (0-5) /hpf U Epithel Cells (Auto) 10-20 H (0-5) /lpf Digoxin (0.8-2.0) ng/ml SARS-CoV-2, RNA, NAAT (NEGATIVE) Diagnostic Findings Foot X-Ray 08/09/22 11:05 XR foot RT min 3V routine CLINICAL HISTORY: fall TECHNIQUE: 3 views of the right foot were obtained. Comparison: Comparison is made to right foot radiograph 07/14/2011 FINDINGS: No fractures are present. The joint spaces are well preserved. Vascular calcifications are noted. IMPRESSION: No evidence of acute bony injury. ACT 112: Negative or not required by law. Electronically signed by: Hollis Mercer M.D. 08/09/2022 11:50 AM Pelvis X-Ray 08/09/22 11:05 XR pelvis 1-2V routine CLINICAL HISTORY: fall TECHNIQUE: A single frontal view of the pelvis was obtained. Comparison: None available at the time of this dictation. FINDINGS: There is no evidence of an acute fracture. Joint spaces are well-preserved. Vascular calcifications are noted. IMPRESSION: No evidence of acute osseous injury. ACT 112: Negative or not required by law. Electronically signed by: Hollis Mercer M.D. 08/09/2022 11:46 AM Chest X-Ray 08/09/22 11:06 XR chest 1V portable CLINICAL HISTORY: fall TECHNIQUE: Single frontal radiograph of the chest was obtained. Comparison: Comparison is made to chest radiograph 12/07/2016 FINDINGS: Median sternotomy wires are unchanged. Cardiomegaly is noted. The aortic arch is calcified. The lungs are clear. No evidence of pleural effusion or pneumothorax. IMPRESSION: No acute chest disease. ACT 112: Negative or not required by law. Electronically signed by: Hollis Mercer M.D. 08/09/2022 11:[address] 08/09/22 11:06 CT angio head w con, CT head/brain wo con, CT angio neck with con CLINICAL HISTORY: slurred speech, fall TECHNIQUE: Contiguous axial CT images of the head were acquired from the base of the skull to the vertex without intravenous contrast administration. CT angiography of the head and neck was performed following intravenous administration of iodinated contrast. Coronal and sagittal MIPS were obtained from the axial data set and were submitted for review. Automated dose lowering techniques and/or adjustment according to patient size were utilized for this examination. All measurements were calculated based on NASCET criteria. CT DOSE: 1080.67 mGy.cm Comparison: Comparison is made to CT head 08/09/2022 FINDINGS: CT head: There is no acute intracranial hemorrhage or evidence of acute territorial infarction. No shift of the midline structures, mass effect, or extra-axial abnormalities are shown. Soft tissue thickening in the right p osterior scalp is noted which may represent prior resolved hematoma. Lungs and soft tissues are unremarkable. CTA Neck: A 3 vessel aortic arch is shown. There is no significant atherosclerotic plaque in the aortic arch or the origins of the innominate, left common carotid, and left subclavian arteries. There is tortuosity and significant plaque near the origin of the left vertebral artery which appears chronic. The carotid arteries are without hemodynamically significant stenosis. The left vertebral artery is dominant. CTA Head: The anterior and posterior cerebral circulations are patent. origin of the left posterior cerebral artery is seen. The right vertebral artery terminates as PICA. IMPRESSION: 1. No acute intracranial hemorrhage, evidence of acute territorial infarction, or other acute intracranial disease process. 2. 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 3. No occlusion, hemodynamically significant stenosis, aneurysm, dissection, or arteriovenous malformation in the major intracranial arteries. Assessment of stenosis of the internal carotid arteries is based on NASCET criteria. ACT 112: Negative or not required by law. Electronically signed by: Hollis Mercer M.D. 08/09/2022 2:39 PM Head CTA 08/09/22 11:06 CT angio head w con, CT head/brain wo con, CT angio neck with con CLINICAL HISTORY: slurred speech, fall TECHNIQUE: Contiguous axial CT images of the head were acquired from the base of the skull to the vertex without intravenous contrast administration. CT angiography of the head and neck was performed following intravenous administration of iodinated contrast. Coronal and sagittal MIPS were obtained from the axial data set and were submitted for review. Automated dose lowering techniques and/or adjustment according to patient size were utilized for this examination. All measurements were calculated based on NASCET criteria. CT DOSE: 1080.67 mGy.cm Comparison: Comparison is made to CT head 08/09/2022 FINDINGS: CT head: There is no acute intracranial hemorrhage or evidence of acute territorial infarction. No shift of the midline structures, mass effect, or extra-axial abnormalities are shown. Soft tissue thickening in the right posterior scalp is noted which may represent prior resolved hematoma. Lungs and soft tissues are unremarkable. CTA Neck: A 3 vessel aortic arch is shown. There is no significant atherosclerotic plaque in the aortic arch or the origins of the innominate, left common carotid, and left subclavian arteries. There is tortuosity and significant plaque near the origin of the left vertebral artery which appears chronic. The carotid arteries are without hemodynamically significant stenosis. The left vertebral artery is dominant. CTA Head: The anterior and posterior cerebral circulations are patent. origin of the left posterior cerebral artery is seen. The right vertebral artery terminates as PICA. IMPRESSION: 1. No acute intracranial hemorrhage, evidence of acute territorial infarction, or other acute intracranial disease process. 2. 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 3. No occlusion, hemodynamically significant stenosis, aneurysm, dissection, or arteriovenous malformation in the major intracranial arteries. Assessment of stenosis of the internal carotid arteries is based on NASCET criteria. ACT 112: Negative or not required by law. Electronically signed by: Hollis Mercer M.D. 08/09/2022 2:39 PM Neck CTA 08/09/22 11:06 CT angio head w con, CT head/brain wo con, CT angio neck with con CLINICAL HISTORY: slurred speech, fall TECHNIQUE: Contiguous axial CT images of the head were acquired from the base of the skull to the vertex without intravenous contrast administration. CT angiography of the head and neck was performed following intravenous administration of iodinated contrast. Coronal and sagittal MIPS were obtained from the axial data set and were submitted for review. Automated dose lowering techniques and/or adjustment according to patient size were utilized for this examination. All measurements were calculated based on NASCET criteria. CT DOSE: 1080.67 mGy.cm Comparison: Comparison is made to CT head 08/09/2022 FINDINGS: CT head: There is no acute intracranial hemorrhage or evidence of acute territorial infarction. No shift of the midline structures, mass effect, or extra-axial abnormalities are shown. Soft tissue thickening in the right posterior scalp is noted which may represent prior resolved hematoma. Lungs and soft tissues are unremarkable. CTA Neck: A 3 vessel aortic arch is shown. There is no significant atherosclerotic plaque in the aortic arch or the origins of the innominate, left common carotid, and left subclavian arteries. There is tortuosity and significant plaque near the origin of the left vertebral artery which appears chronic. The carotid arteries are without hemodynamically significant stenosis. The left vertebral artery is dominant. CTA Head: The anterior and posterior cerebral circulations are patent. origin of the left posterior cerebral artery is seen. The right vertebral artery terminates as PICA. IMPRESSION: 1. No acute intracranial hemorrhage, evidence of acute territorial infarction, or other acute intracranial disease process. 2. 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 3. No occlusion, hemodynamically significant stenosis, aneurysm, dissection, or arteriovenous malformation in the major intracranial arteries. Assessment of stenosis of the internal carotid arteries is based on NASCET criteria. ACT 112: Negative or not required by law. Electronically signed by: Hollis Mercer M.D. 08/09/2022 2:39 PM ECG Additional Comments: Poor data quality, interpretation may be adversely affected Atrial fibrillation with rapid ventricular response with premature ventricular or aberrantly conducted complexes Left axis deviation ST & T wave abnormality, consider lateral ischemia Abnormal ECG When compared with ECG of 04-NOV-2020 04:22, Significant changes have occurred Code Status & VTE Plan Code Status DNR/DNI VTE Prophylaxis Plan VTE Prophylaxis will be ordered: Yes Supervising Physician Co-Signing Physician Notes I personally saw and examined the patient. I verified all boogie points and agree with Adilson Bentley PA-C with the following exceptions and/or additions: 87 year old female admission for unwitnessed fall. Unable to get any history from the patient. She denies any current symptoms. GREG-COV-2 positive in the ER. Brain MRI negative for acute CVA. O/E Irregular rhythm, tachycardic, Chest CTAB, Abdo SNT, no focal neurological extremity deficit, CN 2-> 12 intact A/P Unwitnessed fall - given lack of CVA on brain MRI suspect presentation due to COVID-19 making her weak and tired, other than isolation precautions no specific treatment required for this. No need to hold Eliquis as above - will continue this. Mild increase in troponin -> suspect demand-ischemia. Agree with holding statin while trending CK incase it gets worse. PG Care Time/CCT Total # of Minutes Spent Total Time Spent with Patient: Total time spent is greater than 50% in coordination of care (as documented) at patient's floor/unit and/or counseling patient: [place] [address] INT INP/OBS CARE 3/75MIN Patient Type Established Medical Decision Making High Complexity Diagnoses Fall W19.XXXA Atrial fibrillation with RVR I48.91 Elevated troponin R77.8 COVID-19 U07.1 Impetigo L01.00 Elevated CK R74.8 S/P CABG (coronary artery bypass graft) Z95.1 Hypertension I10 Hypercholesterolemia E78.00
[2022-08-09] MEDS ORDERED: POTASSIUM CHLORIDE CRTAB 20 MEQ TABCR PO STA (15:16)
[2022-08-09] MEDS ORDERED: METOPROLOL SUCC 50MG EXT REL TAB PO STA (15:44)
[2022-08-09] MEDS ORDERED: PHARMACIST DISCHARGE MED REC CONSULT PRN (17:25)
--- NOTE | 2022-08-09 17:34 | Magnetic Resonance Report ---
MR brain wo con CLINICAL HISTORY: stroke workup TECHNIQUE: Multiplanar and multisequence MR images of the brain were obtained without intravenous con trast. Comparison: Comparison is made to MRI brain 11/04/2020 FINDINGS: No abnormal restricted diffusion is identified. Foci of T2 and FLAIR hyperintensity are noted in the paraventricular areas consistent with chronic small vessel ischemic disease. Ex vacuo ventriculomegal y and sulcal enlargement is noted compatible with diffuse encephalomalacia. No mass is seen. There is no mass effect or midline shift. There is no evidence of acute intraparenchymal hemorrhage. No extra axial fluid collections are seen. The corpus callosum, pituitary gland, and cerebellar tonsils appea r grossly unremarkable. Flow voids of the major intracranial arterial vessels are identified. The imaged portions of the para nasal sinuses, mastoid air cells, and orbits are unremarkable. IMPRESSION: No acute abnormalities. ACT 112: Negative or not required by law. Electronically signed by: Hollis Mercer M.D. 08/09/2022 5:33 PM
[2022-08-09] MEDS: LACTATED RINGER'S 1,000 ML IV SCH (18:12)
[2022-08-09] MEDS: LOSARTAN POTASSIUM 50 MG TAB PO SCH (18:39)
[2022-08-09] MEDS: DIGOXIN 0.125 MG TAB PO SCH (18:39)
[2022-08-09] MEDS: METOPROLOL TARTRATE 50 MG TAB PO SCH (20:18)
[2022-08-09] MEDS: MUPIROCIN 2% OINT 22 GM TUBE EXT SCH (20:20)
[2022-08-09] MEDS: ALBUT/IPRATROP 3MG/0.5MG NEB 3 ML VIAL NEB SCH (20:45)
[2022-08-10 02:46] LABS: Basophils # (auto) 0.05 K/uL (0-0.2); Basophils % (auto) 0.5 %; Eosinophils # (auto) 0.11 K/uL (0-0.50); Eosinophils % (auto) 1.1 %; Hematocrit (blood only) 38.3 % (34.1-44.9); Hemoglobin 12.5 g/dl (12.0-16.0); Immature Granulocytes # (auto) 0.04 K/uL (0.00-0.02); Immature Granulocytes % (auto) 0.4 %; Lymphocytes # (auto) 1.57 K/uL (1.2-3.4); Lymphocytes % (auto) 16.1 %; Mean Corpuscular Hemoglobin 28.8 pg (25.0-34.0); Mean Corpuscular Hgb Conc 32.6 g/dL (32.0-36.0); Mean Corpuscular Volume 88.2 fL (80.0-100.0); Mean Platelet Volume 10.9 fL (9.4-12.3); Monocytes # (auto) 0.92 K/uL (0.24-0.82); Monocytes % (auto) 9.4 %; Neutrophils # (auto) 7.06 K/uL (1.4-6.5); Neutrophils % (auto) 72.5 %; Platelet Count 183 K/uL (130-400); RDW Coefficient of Variation 16.1 % (11.5-14.5); RDW Standard Deviation 51.6 fL (36.4-46.3); Red Blood Count 4.34 M/uL (3.93-5.22); White Blood Count 9.75 K/ul (4.8-10.8)
[2022-08-10 03:02] LABS: INR 1.2 (0.9-1.1); Prothrombin Time 12.4 Seconds (9.0-12.0)
[2022-08-10 03:11] LABS: BUN Creatinine Ratio 42.7 (10-20); Calcium 8.2 mg/dl (8.5-10.1); Chol HDL Ratio 2.7 (0-5); Creatinine Clr Calc Pharmacy 49.1 ml/min; Est GFR (African American) 84.2 ml/min; Est GFR (Non-African American) 72.7 ml/min; Magnesium 2.4 mg/dl (1.7-2.4); Potassium 4.6 mmol/L (3.5-5.1); Troponin I High Sensitivity 51.4 pg/ml (0-14)
[2022-08-10] MEDS: LACTATED RINGER'S 1,000 ML IV SCH (05:53)
[2022-08-10] MEDS: ALBUT/IPRATROP 3MG/0.5MG NEB 3 ML VIAL NEB SCH (07:09)
[2022-08-10] MEDS: ASPIRIN 81 MG ECTAB PO SCH (07:34)
[2022-08-10] MEDS: METOPROLOL TARTRATE 50 MG TAB PO SCH ×3 (07:35→20:21)
[2022-08-10] MEDS: LOSARTAN POTASSIUM 50 MG TAB PO SCH (07:35)
[2022-08-10] MEDS: MUPIROCIN 2% OINT 22 GM TUBE EXT SCH ×3 (07:36→20:22)
[2022-08-10 08:15] LABS: Estimated Average Glucose 143 mg/dl; Hemoglobin A1C 6.6 % (4.5-5.6)
[2022-08-10] MEDS ORDERED: ALBUT/IPRATROP 3MG/0.5MG NEB 3 ML VIAL NEB PRN (09:32)
--- NOTE | 2022-08-10 11:45 | Neurology Consultation ---
Date of Consultation August 10, 2022 Assessment & Plan (1) Weakness on left side of face: (2) Stenosis of left vertebral artery: (3) Fall: (4) Atrial fibrillation with RVR: (5) COVID-19: Plan 87-year-old female with COVID-19 infection, found on floor by family members, rhabdomyolysis, elevated troponin, known history of atrial fibrillation with rapid ventricular response, on Eliquis, history of recurrent falls, now found with subtle left upper and lower facial weakness. There is no evidence of acute or subacute stroke on patient's recent brain MRI. She does have a chronic stenosis at the origin of the left vertebral artery. No evidence of acute medullary or cerebellar infarct on MRI. Other than the subtle left upper and lower facial weakness, no other examination findings suggestive of a lateral medullary stroke syndrome. The chronic stenosis at the origin of the left vertebral artery is likely an incidental finding. Furthermore, the chronicity of this patient's subtle left facial weakness is not entirely clear. She does not have a known history of Hardin's palsy. One could speculate as to whether or not she sustained some compression injury to the facial nerve while lying on the floor for an extended period of time. Again, the examination finding is quite subtle. Her speech is not grossly dysarthric or aphasic. She does not have an associated hemiparesis or ataxia. At this point, I do not have any further immediate recommendations from a neurol ogical perspective. I do not find a neurologic contraindication to resuming Eliquis at this point in time. Again, the single punctate focus of susceptibility artifact/hemosiderin deposition within the posterior right temporal lobe appears to be much improved on patient's most recent brain MRI for my review. This finding is actually quite subtle currently and was not specifically mentioned by the interpreting radiologist. There is no compelling evidence that this patient has cerebral amyloid angiopathy at this point in time and again, I think would have a low risk of resuming her Eliquis. She may also continue with daily low-dose aspirin. Continue medical management of rhabdomyolysis, elevated troponins, and COVID-19 infection, notably, no active disease on chest x-ray completed yesterday. Please contact me or the neurology service if you have any additional concerns or questions regarding this patient's neurological assessment. History of Present Illness Reason for Consultation: slurred speech, left facial droop Requesting Physician: Tevin French Attending Physician: Tevin French History of Present Illness The patient is an 87-year-old female who presented to the emergency department yesterday for further evaluation after she had been found on the floor by family. They had last heard from her earlier in the week, she lives alone. The patient does not recall feeling lightheaded or dizzy, she does not know how long she was lying on the floor. However, based on a pillbox count per family, she may have been on the floor since the previous morning. Her speech was felt to be somewhat garbled during her initial assessment, there was no obvious hemiparesis or facial droop at that time. She did have a CT angiogram of the head and neck as well as a CT of the head. These tests were generally unrevealing, no hemorrhage or acute process. There was evidence of a chronic significant stenosis near the origin of the left vertebral artery. Otherwise, no occlusion, stenosis, aneurysm, dissection, or significant abnormality seen in any other vessel. She was admitted for further evaluation and management. Past medical history notable for atrial fibrillation with rapid ventricular response, has been on Eliquis. She did have an elevated troponin without associated chest pain or ECG changes. She did test positive for COVID-19 during her initial assessment yesterday. The admitting physician did note minimal left facial weakness, possibly peripheral. Given patient's history of atrial fibrillation and clinical presentation, there was some concern for possible acute stroke. A brain MRI was ordered as well as echocardiogram. The brain MRI was completed overnight and was negative for acute abnormality. No evidence of acute or subacute infarct. I did independently review these images, no areas of abnormal restricted diffusion. There is minimal scattered T2/FLAIR hyperintensity consistent with chronic microvascular ischemic disease. There is mild generalized atrophy. I noted a brain MRI completed in October 2020 revealed a 2- 1/2 mm focus of blooming artifact within the posterior right temporal lobe consistent with a small focus of blood products in this area. I was able to identify this subtle finding on the most recent brain MRI. The finding is much less prominent, however. This morning, the patient remains a poor historian. Again, she does not recall how long she was lying on the floor and denies any specific symptoms. She does not recall feeling dizzy or lightheaded. She does not recall the actual fall. I note that the brain MRI done this past October was done in the context of ataxia and recurrent falls. She does admit that she has poor balance and has a walker but tends not to use it. She follows with [facility], I did review a clinic note from this past February indicating coronary artery disease, paroxysmal atrial fibrillation, status post coronary artery bypass graft, status post AVR, mitral regurgitation, hypertension, and hypercholesterolemia. I see that she is scored 3 out of 5 on a mini cognitive screening test done this past November in the context of a wellness visit with her PCP, Dr. Ballard. Other identified issues at that time included prediabetes, osteoporosis, hyponatremia, in addition to issues described above in the cardiology note. I see that she has seen Dr. Sheehan in neurological consultation during a hospitalization in October 2020 for recurrent falls and concussion. Her 2 mm microhemorrhage was noted at that time. There was some discussion as to whether or not patient could have cerebral amyloid angiopathy although she did not meet the formal criteria at that time. Allergies Allergy/AdvReac Type Severity Reaction Status Date / Time No Known Allergies Allergy Verified 03/26/22 10:00 Home Medications Medication Instructions Recorded Confirmed Type aspirin 81 mg tablet,delayed 81 mg PO DAILY 12/06/19 08/09/22 History release multivitamin (Daily Multi-Vitamin 1 tab PO DAILY 12/06/19 08/09/22 History tablet) calcium carbonate 600 mg-vitamin 1 tab PO DAILY 11/03/20 08/09/22 History D3 10 mcg (400 unit) tablet (Calcium 600 + D(3)) krill 1,000 mg-omega-3 170 mg-dha 1 cap PO DAILY 11/03/20 08/09/22 History 50 mg-epa 80 [id number] capsule (krill oil) digoxin 125 mcg (0.125 mg) tablet 125 mcg PO DAILY #90 tabs 11/15/21 08/09/22 Rx atorvastatin 40 mg tablet 40 mg PO HS #90 tabs 11/26/21 08/09/22 Rx metoprolol tartrate 50 mg tablet 50 mg PO BID #180 tabs 04/14/22 08/09/22 Rx apixaban 2.5 mg tablet (Eliquis) 2.5 mg PO BID #180 tabs 06/12/22 08/09/22 Rx losartan 100 mg tablet 100 mg PO DAILY #14 tabs 07/02/22 08/09/22 Rx Patient History Medical History AF (paroxysmal atrial fibrillation) Aortic stenosis CAD (coronary artery disease) Carotid artery stenosis Coccydynia Hypercholesterolemia Hypertension Hyponatremia Mitral regurgitation NSTEMI (non-ST elevated myocardial infarction) Prediabetes Surgical History H/O aortic valve replacement H/O shoulder surgery History of bladder surgery History of total abdominal hysterectomy and bilateral salpingo-oophorectomy S/P CABG x 2 (~12/15/16) Family History Mother Cancer Father COPD (chronic obstructive pulmonary disease) Denies family history of Ovarian cancer Prostate cancer Coronary heart disease Breast cancer Colorectal cancer Social History (Updated 03/26/22 @ 10:07 by Cindy Jean-Baptiste LPN) Smoking Status: Never smoker Second Hand Exposure: No; Do You Dip or Chew Tobacco: No; Hx Alcohol Use: No Hx Substance Use: No Preferred Language: Macedonian Communication Ability: Impaired Visual Impairment: No Limitations Hearing Ability: Normal Casting Tester Required: No Beliefs That Will Affect Care: None marital status: / Current Living Situation: Alone current occupational status: retired Feels Safe at Home: Yes Safety Concerns: Feels Safe At This Time Childhood Exposure to Second-Hand Smoke: No caffeine: Yes during the past year weight has: remained stable Dental Care, Regularly: Yes Physical Activity Frequency: Daily Seatbelt Use: always Sunscreen Use: No Assistive Devices: None Review of Systems Constitutional: no fever and no chills Eyes: no blind spots and no diplopia Ear, Nose, Mouth, Throat: no hearing loss and no dizziness Respiratory: no cough and no dyspnea Cardiovascular: no chest pain and no palpitations Gastrointestinal: no nausea and no vomiting Genitourinary: no dysuria Musculoskeletal: no neck pain and no myalgia Integumentary: + lesions (recent cold sores on face) Neurologic: as per Subjective / HPI, + gait abnormality and + falls; no tremor(s) and no headache(s) Psychiatric: no depression and no anxiety Hematologic / Lymphatic: no easy bleeding and no easy bruising Exam (Neuro) Constitutional: well developed and + frail appearing Eyes: normal visual teixeira by confrontation, PERRL, normal accommodation and EOM intact bilaterally; no fundoscopic abnormality and no papilledema Cardiovascular: Vessels: normal carotid upstroke; no carotid bruit Neurologic: Oriented to:: Person and Place; negative Time Memory: Short Ter m Intact; negative Remote Intact Attention: Span Intact; negative Concentration Intact Speech Fluency: negative Dysarthria or Dysfluency Speech Aphasia: negative Aphasia Fund of Knowledge: Past History and Vocabulary; negative Current Events Cranial Nerves: Normal II, III, IV, , V, VIII, IX, X, XI and XII; Abnorm VII (Very mild upper and lower left facial weakness noted) Motor Strength: Normal Lower Extremities and Normal Upper Extremities; negative Pronator Drift Motor Tone: Normal Lower Extremities and Normal Upper Extremities Muscle Bulk/Involuntary Movements: No Involuntary Movements; negative Pill Rolling Tremor, Rest Tremor (Arm), Action Tremor or Head Tremor Sensation: Light Touch Intact, Pain/Temperature Intact, Vibration Intact and Proprioception Intact Coordination: negative Dysdiadochokinesia, Finger-Nose Abnormal or Heel-Roamn Abnormal Deep Tendon Reflexes: Rt Triceps: 1+, Lt Triceps: 1+, Rt Biceps: 1+, Lt Biceps: 1+, Rt Brachioradialis: 1+, Lt Brachioradialis: 1+, Rt Patellar: 1+, Lt Patellar: 1+, Rt Ankle: 1+ and Lt Ankle: 1+ Special Tests: negative Babinski Present Details: Gait cannot be tested in the context of patient's current neurological status. Results & Data ([facility]) Vital Signs (Past 12 Hours) Vital Signs Temp Pulse Pulse Resp BP Pulse Ox O2 Del Method 08/10/22 10:50 36.5 C 96 H 20 131/69 96 Room Air 08/10/22 10:47 79 08/10/22 07:10 87 16 96 Room Air 08/10/22 03:21 36.7 C 81 18 156/68 H 97 Room Air Laboratory Results WBC 9.75, hemoglobin 12.5, hematocrit 38.3, MCV 88.2, platelet count 183, sodium 138, potassium 4.6, BUN 32, creatinine 0.75, glucose 127, hemoglobin A1c 6.6, calcium 8.2, magnesium 2.4, AST 37, ALT 21, high-sensitivity troponin 51.4, total CK 477, 259, triglycerides 83, cholesterol 97, LDL 44, VLDL 17, HDL 36, TSH 1.651, SARS-CoV-[address] RNA [address] Diagnostic Findings CT angiography of the head and neck, CT of the head, and brain MRI are as described in the history of present illness. I independently reviewed these images as well as images pertaining to the previous brain MRI done November 04, 2020. Electrocardiogram reveals atrial fibrillation with rapid ventricular response with premature ventricular or aberrantly conducted complexes. PG Care Time/CCT Total # of Minutes Spent Total Time Spent with Patient: Total time spent is greater than 50% in coordination of care (as documented) at patient's floor/unit and/or counseling patient: 90min Coding Level of Care Code 11158 INT INP/OBS CARE 3/75MIN Diagnoses Weakness on left side of face R29.810 Stenosis of left vertebral artery I65.02 Fall W19.XXXA Encounter type: initial encounter Atrial fibrillation with RVR I48.91 COVID-19 U07.1 (1) Fall Encounter type: initial encounter Qualified Code(s): W19.XXXA - Unspecified fall, initial encounter
[2022-08-10] MEDS: DIGOXIN 0.125 MG TAB PO SCH (16:28)
[2022-08-10] MEDS: APIXABAN 2.5 MG TAB PO SCH (20:21)
--- NOTE | 2022-08-10 21:40 | Hospitalist Progress Note ---
Date of Service August 10, 2022 Assessment & Plan (1) Fall: Plan: -Admit to med tele -Patient is currently afebrile, hemodynamically stable, and stable on RA -Patient was found down this am by family, unsure of her exact last known well time but it was at least out of the window for thrombolytic therapy -CT of the head and CTA of the head/neck without acute findings but did show " 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 -Physical exam is concerning for possible ischemic or embolic stroke, she is still on eliquis for afib and also on aspirin and statin therapy -Monitor on tele/pulse ox, fall precautions, q4h neuro checks, BP parameters ordered, -Will obtain MRI of the brain WO con and TTE for further assessment, am A1C and lipid panel -PT/OT consults placed -Will have dysphagia screen prior to staring a diet -Her acute covid infection could be causing some of her symptoms, unsure at this time -Patient will ultimately need rehab. will monitor her inflammatory markers and clinical response. (2) Atrial fibrillation with RVR: Plan: -Patient noted to be in afib RVR on arrival to the ED -S/P 5 mg IV Lopressor in the ED and ordered 2gm IV mag, potassium is at 3.6, will also give her 40 mg PO KCL -Will lumber tallier her am dose of PO metoprolol tartrate now and continue BID dosing -Continue Dig -Will continue with light IV hydration with with LR x 2 bags -Monitor on tele and pulse oximetry -Will hold Eliquis for now with her recent fall, can restart tomorrow if she is stable and without signs of bleeding (3) Elevated troponin: Plan: -Initial high sensitivity trop elevated at 54, patient is without chest pain or ECG changes -Likely due to demand from her fall and afib RVR -Will repeat another trop now, monitor on tele (4) COVID-19: Plan: -Found to be positive on exam -Stable on RA -Symptomatic tx for now with pulm hygiene, prn duonebs, prn robitussin, and prn O2 ordered (5) Impetigo: Plan: -Patient noted to have scabs under the BL nares, states that they were first blisters which popped -Examines like impetigo, will start TID topical mupirocin x 5 days -No signs of systemic infection at this time (6) Elevated CK: Plan: -initial elevated at 477, likely from being down for extended period of time -S/P 1L NSS in the ED, continue IV fluids, continue trending CK until it reaches a peak (7) S/P CABG (coronary artery bypass graft): Plan: -Continue aspirin (8) Hypertension: Plan: -Hemodynamically stable -Continue metoprolol and losartan (9) Hypercholesterolemia: Plan: -Hold statin while Ck is elevated, restart when stable Admission and Anticipated Discharge Date Admission Date: August 09, 2022 Subjective Patient reports no new symptoms. Review of Systems Review of Systems: All systems reviewed & are unremarkable except as noted in HPI & below Physical Exam Physical Exam: General:In no acute distress, stated age, well-nourished, non- toxic appearing HEENT:Normocephalic, atraumatic, no scleral icterus, pupils around round, symmetrical, and reactive to light,patient with healing scabs under the BL nares not currently draining,moist mucus membranes, trachea midline, no thyromegaly Chest/Pulm:No respiratory distress, symmetrical chest expansion, clear breath sounds throughout Cardiac:tachycardic rate, irregular rhythm, no murmurs noted Abdomen:Negative for ascites and bruising, normoactive bowel sounds, soft, non- tender to palpation throughout Musculoskeletal:Symmetrical and without signs of acute trauma, upper and lower extremities with full ROM, patient noted to have difficulty with coordination with ROM of the BL upper extremities. No crepitus or tenderness to palpation of the head, cervical, thoracic, or lumbar spine Extremities:Radial, dorsalis pedis, and posterior tibial pulses are intact and symmetrical, no edema noted in the BL LE's, LLE with baseline swelling and bruising as confirmed with patient and family Skin:As described above Neuro:Alert and oriented to person, place, month, but not year, patient noted to have slurred speech and minimal left-sided facial droop, CN II-XII tested, possible left facial nerve weakness, patient with positive [id number] testing BL Psych:No acute distress, calm and cooperative during the exam Results & Data Results & Data ([facility]) Vital Signs (Past 12 Hours) Vital Signs Temp Pulse Pulse Resp BP Pulse Ox O2 Del Method 08/10/22 20:07 36.8 C 85 18 163/74 H 95 Room Air 08/10/22 16:45 78 08/10/22 14:53 36.4 C L 92 H 18 121/70 99 Room Air 08/10/22 10:50 36.5 C 96 H 20 131/69 96 Room Air 08/10/22 10:47 79 PG Care Time/CCT Total # of Minutes Spent Total Time Spent with Patient: Total time spent is greater than 50% in coordination of care (as documented) at patient's floor/unit and/or counseling patient: Coding Level of Care Code 23702 SUB INP/OBS CARE 2MIN Diagnoses Fall W19.XXXA Encounter type: initial encounter Atrial fibrillation with RVR I48.91 Elevated troponin R77.8 COVID-19 U07.1 Impetigo L01.00 Elevated CK R74.8 S/P CABG (coronary artery bypass graft) Z95.1 Hypertension I10 Hypercholesterolemia E78.00 (1) Fall Encounter type: initial encounter Qualified Code(s): W19.XXXA - Unspecified fall, initial encounter
--- NOTE | 2022-08-10 21:44 | Electrocardiogram Report ---
Test Reason : Blood Pressure : / mmHG Vent. Rate : 133 BPM Atrial Rate : 110 BPM P-R Int : 000 ms QRS Dur : 080 ms QT Int : 286 ms P-R-T Axes : 000 -32 192 degrees QTc Int : 425 ms Poor data quality, interpretation may be adversely affected Atrial fibrillation Left axis deviation Abnormal ECG When compared with ECG of 04-NOV-2020 04:22, Atrial fibrillation is now Present Confirmed by Louie Gooden ([id number]) on 08/10/2022 9:44:36 PM Referred By: REFERRED SELF Confirmed By:Louie Gooden
[2022-08-11 07:38] LABS: Basophils # (auto) 0.06 K/uL (0-0.2); Eosinophils # (auto) 0.33 K/uL (0-0.50); Eosinophils % (auto) 5.3 %; Hematocrit (blood only) 37.7 % (34.1-44.9); Hemoglobin 12.5 g/dl (12.0-16.0); Immature Granulocytes # (auto) 0.02 K/uL (0.00-0.02); Immature Granulocytes % (auto) 0.3 %; Lymphocytes # (auto) 1.34 K/uL (1.2-3.4); Lymphocytes % (auto) 21.7 %; Mean Corpuscular Hemoglobin 29.1 pg (25.0-34.0); Mean Corpuscular Hgb Conc 33.2 g/dL (32.0-36.0); Mean Corpuscular Volume 87.7 fL (80.0-100.0); Monocytes % (auto) 9.7 %; Neutrophils # (auto) 3.83 K/uL (1.4-6.5); Platelet Count 167 K/uL (130-400); RDW Coefficient of Variation 15.9 % (11.5-14.5); White Blood Count 6.18 K/ul (4.8-10.8)
[2022-08-11] MEDS: ASPIRIN 81 MG ECTAB PO SCH (08:00)
[2022-08-11] MEDS: MUPIROCIN 2% OINT 22 GM TUBE EXT SCH ×3 (08:00→22:06)
[2022-08-11] MEDS: APIXABAN 2.5 MG TAB PO SCH ×2 (08:00→22:04)
[2022-08-11] MEDS: METOPROLOL TARTRATE 50 MG TAB PO SCH ×2 (08:00→22:05)
[2022-08-11] MEDS: LOSARTAN POTASSIUM 50 MG TAB PO SCH (08:00)
[2022-08-11 08:01] LABS: BUN Creatinine Ratio 33.3 (10-20); Calcium 8.2 mg/dl (8.5-10.1); Creatinine Clr Calc Pharmacy 55.7 ml/min; Est GFR (African American) 93.4 ml/min; Est GFR (Non-African American) 80.6 ml/min; Magnesium 1.9 mg/dl (1.7-2.4); Potassium 3.9 mmol/L (3.5-5.1)
--- NOTE | 2022-08-11 08:25 | XCELERA ---
[id number]
[2022-08-11] MEDS: DIGOXIN 0.125 MG TAB PO SCH (15:39)
--- NOTE | 2022-08-11 22:13 | Hospitalist Progress Note ---
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 -Physical exam is concerning for possible ischemic or embolic stroke, she is still on eliquis for afib and also on aspirin and statin therapy -Monitor on tele/pulse ox, fall precautions, q4h neuro checks, BP parameters ordered, -Will obtain MRI of the brain WO con and TTE for further assessment, am A1C and lipid panel -PT/OT consults placed -Will have dysphagia screen prior to staring a diet -Her acute covid infection could be causing some of her symptoms, unsure at this time -Patient will ultimately need rehab. will monitor her inflammatory markers and clinical response. PAtient is awaiting placement. She does not have any signs of active respiratory COVID 19 (2) Atrial fibrillation with RVR: Plan: -Patient noted to be in afib RVR on arrival to the ED -S/P 5 mg IV Lopressor in the ED and ordered 2gm IV mag, potassium is at 3.6, will also give her 40 mg PO KCL -Will dressmaker or tailor her am dose of PO metoprolol tartrate now and continue BID dosing -Continue Dig -Will continue with light IV hydration with with LR x 2 bags -Monitor on tele and pulse oximetry -Will hold Eliquis for now with her recent fall, can restart tomorrow if she is stable and without signs of bleeding (3) Elevated troponin: Plan: -Initial high sensitivity trop elevated at 54, patient is without chest pain or ECG changes -Likely due to demand from her fall and afib RVR -Will repeat another trop now, monitor on tele (4) COVID-19: Plan: -Found to be positive on exam -Stable on RA -Symptomatic tx for now with pulm hygiene, prn duonebs, prn robitussin, and prn O2 ordered (5) Impetigo: Plan: -Patient noted to have scabs under the BL nares, states that they were first blisters which popped -Examines like impetigo, will start TID topical mupirocin x 5 days -No signs of systemic infection at this time (6) Elevated CK: Plan: -initial elevated at 477, likely from being down for extended period of time -S/P 1L NSS in the ED, continue IV fluids, continue trending CK until it reaches a peak (7) S/P CABG (coronary artery bypass graft): Plan: -Continue aspirin (8) Hypertension: Plan: -Hemodynamically stable -Continue metoprolol and losartan (9) Hypercholesterolemia: Plan: -Hold statin while Ck is elevated, restart when stable Admission and Anticipated Discharge Date Admission Date: August 09, 2022 Subjective Patient reports no new symptoms. Review of Systems Review of Systems: All systems reviewed & are unremarkable except as noted in HPI & below Physical Exam Physical Exam: General:In no acute distress, stated age, well-nourished, non- toxic appearing HEENT:Normocephalic, atraumatic, no scleral icterus, pupils around round, symmetrical, and reactive to light,patient with healing scabs under the BL nares not currently draining,moist mucus membranes, trachea midline, no thyromegaly Chest/Pulm:No respiratory distress, symmetrical chest expansion, clear breath sounds throughout Cardiac:tachycardic rate, irregular rhythm, no murmurs noted Abdomen:Negative for ascites and bruising, normoactive bowel sounds, soft, non- tender to palpation throughout Musculoskeletal:Symmetrical and without signs of acute trauma, upper and lower extremities with full ROM, patient noted to have difficulty with coordination with ROM of the BL upper extremities. No crepitus or tenderness to palpation of the head, cervical, thoracic, or lumbar spine Extremities:Radial, dorsalis pedis, and posterior tibial pulses are intact and symmetrical, no edema noted in the BL LE's, LLE with baseline swelling and bruising as confirmed with patient and family Skin:As described above Neuro:Alert and oriented to person, place, month, but not year, patient noted to have slurred speech and minimal left-sided facial droop, CN II-XII tested, possible left facial nerve weakness, patient with positive [id number] testing BL Psych:No acute distress, calm and cooperative during the exam Results & Data Results & Data ([facility]) Vital Signs (Past 12 Hours) Vital Signs Temp Pulse Pulse Resp BP BP Pulse Ox 08/11/22 20:21 36.5 C 79 18 158/84 H 96 08/11/22 18:45 37.0 C 107 H 18 187/77 H 96 08/11/22 15:39 104 H 08/11/22 15:21 36.5 C 104 H 18 125/84 98 O2 Del Method 08/11/22 20:21 Room Air 08/11/22 18:45 Room Air 08/11/22 15:39 08/11/22 15:21 Room Air PG Care Time/CCT Total # of Minutes Spent Total Time Spent with Patient: Total time spent is greater than 50% in coordination of care (as documented) at patient's floor/unit and/or counseling patient: Coding Level of Care Code 65110 SUB INP/OBS CARE 2/35MIN Diagnoses Fall W19.XXXA Encounter type: initial encounter Atrial fibrillation with RVR I48.91 Elevated troponin R77.8 COVID-19 U07.1 Impetigo L01.00 Elevated CK R74.8 S/P CABG (coronary artery bypass graft) Z95.1 Hypertension I10 Hypercholesterolemia E78.00 (1) Fall Encounter type: initial encounter Qualified Code(s): W19.XXXA - Unspecified fall, initial encounter
[2022-08-12 06:07] LABS: Basophils # (auto) 0.05 K/uL (0-0.2); Basophils % (auto) 0.9 %; Eosinophils % (auto) 5.6 %; Hematocrit (blood only) 38.7 % (34.1-44.9); Hemoglobin 12.6 g/dl (12.0-16.0); Immature Granulocytes # (auto) 0.03 K/uL (0.00-0.02); Immature Granulocytes % (auto) 0.6 %; Lymphocytes # (auto) 1.55 K/uL (1.2-3.4); Lymphocytes % (auto) 29.2 %; Mean Corpuscular Hemoglobin 28.6 pg (25.0-34.0); Mean Corpuscular Hgb Conc 32.6 g/dL (32.0-36.0); Mean Corpuscular Volume 87.8 fL (80.0-100.0); Mean Platelet Volume 11.4 fL (9.4-12.3); Monocytes # (auto) 0.42 K/uL (0.24-0.82); Monocytes % (auto) 7.9 %; Neutrophils # (auto) 2.96 K/uL (1.4-6.5); Neutrophils % (auto) 55.8 %; Platelet Count 199 K/uL (130-400); RDW Coefficient of Variation 15.9 % (11.5-14.5); RDW Standard Deviation 50.9 fL (36.4-46.3); Red Blood Count 4.41 M/uL (3.93-5.22); White Blood Count 5.31 K/ul (4.8-10.8)
[2022-08-12 07:09] LABS: BUN Creatinine Ratio 27.4 (10-20); Calcium 8.5 mg/dl (8.5-10.1); Creatinine Clr Calc Pharmacy 51.6 ml/min; Est GFR (Non-African American) 75.1 ml/min; Magnesium 1.8 mg/dl (1.7-2.4); Potassium 3.9 mmol/L (3.5-5.1)
[2022-08-12] MEDS: LOSARTAN POTASSIUM 50 MG TAB PO SCH (07:48)
[2022-08-12] MEDS: ASPIRIN 81 MG ECTAB PO SCH (07:48)
[2022-08-12] MEDS: APIXABAN 2.5 MG TAB PO SCH ×2 (07:48→20:51)
[2022-08-12] MEDS: MUPIROCIN 2% OINT 22 GM TUBE EXT SCH ×3 (07:49→20:52)
[2022-08-12] MEDS: METOPROLOL TARTRATE 50 MG TAB PO SCH ×2 (07:49→20:52)
[2022-08-12] MEDS: DIGOXIN 0.125 MG TAB PO SCH (16:13)
--- NOTE | 2022-08-12 22:12 | Hospitalist Progress Note ---
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 -Physical exam is concerning for possible ischemic or embolic stroke, she is still on eliquis for afib and also on aspirin and statin therapy -Monitor on tele/pulse ox, fall precautions, q4h neuro checks, BP parameters ordered, -Will obtain MRI of the brain WO con and TTE for further assessment, am A1C and lipid panel -PT/OT consults placed -Will have dysphagia screen prior to staring a diet -Her acute covid infection could be causing some of her symptoms, unsure at this time -Patient will ultimately need rehab. will monitor her inflammatory markers and clinical response. PAtient is awaiting placement. She does not have any signs of active respiratory COVID 19. will need to stay 10 days due to COVID. (2) Atrial fibrillation with RVR: Plan: -Patient noted to be in afib RVR on arrival to the ED -S/P 5 mg IV Lopressor in the ED and ordered 2gm IV mag, potassium is at 3.6, will also give her 40 mg PO KCL -Will wooden furniture polisher her am dose of PO metoprolol tartrate now and continue BID dosing -Continue Dig -Will continue with light IV hydration with with LR x 2 bags -Monitor on tele and pulse oximetry -Will hold Eliquis for now with her recent fall, can restart tomorrow if she is stable and without signs of bleeding (3) Elevated troponin: Plan: -Initial high sensitivity trop elevated at 54, patient is without chest pain or ECG changes -Likely due to demand from her fall and afib RVR -Will repeat another trop now, monitor on tele (4) COVID-19: Plan: -Found to be positive on exam -Stable on RA -Symptomatic tx for now with pulm hygiene, prn duonebs, prn robitussin, and prn O2 ordered (5) Impetigo: Plan: -Patient noted to have scabs under the BL nares, states that they were first blisters which popped -Examines like impetigo, will start TID topical mupirocin x 5 days -No signs of systemic infection at this time (6) Elevated CK: Plan: -initial elevated at 477, likely from being down for extended period of time -S/P 1L NSS in the ED, continue IV fluids, continue trending CK until it reaches a peak (7) S/P CABG (coronary artery bypass graft): Plan: -Continue aspirin (8) Hypertension: Plan: -Hemodynamically stable -Continue metoprolol and losartan (9) Hypercholesterolemia: Plan: -Hold statin while Ck is elevated, restart when stable Admission and Anticipated Discharge Date Admission Date: August 09, 2022 Subjective 87 yo female is a poot historian. Review of Systems Review of Systems: All systems reviewed & are unremarkable except as noted in HPI & below Physical Exam Physical Exam: General:In no acute distress, stated age, well-nourished, non- toxic appearing HEENT:Normocephalic, atraumatic, no scleral icterus, pupils around round, symmetrical, and reactive to light,patient with healing scabs under the BL nares not currently draining,moist mucus membranes, trachea midline, no thyromegaly Chest/Pulm:No respiratory distress, symmetrical chest expansion, clear breath sounds throughout Cardiac:tachycardic rate, irregular rhythm, no murmurs noted Abdomen:Negative for ascites and bruising, normoactive bowel sounds, soft, non- tender to palpation throughout Musculoskeletal:Symmetrical and without signs of acute trauma, upper and lower extremities with full ROM, patient noted to have difficulty with coordination with ROM of the BL upper extremities. No crepitus or tenderness to palpation of the head, cervical, thoracic, or lumbar spine Extremities:Radial, dorsalis pedis, and posterior tibial pulses are intact and symmetrical, no edema noted in the BL LE's, LLE with baseline swelling and bruising as confirmed with patient and family Skin:As described above Neuro:Alert and oriented to person, place, month, but not year, patient noted to have slurred speech and minimal left-sided facial droop, CN II-XII tested, possible left facial nerve weakness, patient with positive [id number] testing BL Psych:No acute distress, calm and cooperative during the exam Results & Data Results & Data ([facility]) Vital Signs (Past 12 Hours) Vital Signs Temp Pulse Pulse Resp BP BP Pulse Ox 08/12/22 20:38 08/12/22 19:56 36.7 C 79 18 178/80 H 97 08/12/22 16:41 113 H 08/12/22 16:13 94 H 08/12/22 15:45 36.3 C L 88 18 151/97 H 98 08/12/22 12:00 36.3 C L 82 18 170/86 H 98 08/12/22 11:39 O2 Del Method 08/12/22 20:38 Room Air 08/12/22 19:56 Room Air 08/12/22 16:41 08/12/22 16:13 08/12/22 15:45 Room Air 08/12/22 12:00 Room Air 08/12/22 11:39 Room Air PG Care Time/CCT Total # of Minutes Spent Total Time Spent with Patient: Total time spent is greater than 50% in coordination of care (as documented) at patient's floor/unit and/or counseling patient: Coding Level of Care Code 39261 SUB INP/OBS CARE 2/35MIN Diagnoses Fall W19.XXXA Encounter type: initial encounter Atrial fibrillation with RVR I48.91 Elevated troponin R77.8 COVID-19 U07.1 Impetigo L01.00 Elevated CK R74.8 S/P CABG (coronary artery bypass graft) Z95.1 Hypertension I10 Hypercholesterolemia E78.00 (1) Fall Encounter type: initial encounter Qualified Code(s): W19.XXXA - Unspecified fall, initial encounter
[2022-08-13] MEDS ORDERED: ACETAMINOPHEN 325 MG TAB PO STA (07:09)
[2022-08-13] MEDS: APIXABAN 2.5 MG TAB PO SCH ×2 (07:28→20:52)
[2022-08-13] MEDS: METOPROLOL TARTRATE 50 MG TAB PO SCH ×2 (07:28→20:52)
[2022-08-13] MEDS: ASPIRIN 81 MG ECTAB PO SCH (07:28)
[2022-08-13] MEDS: LOSARTAN POTASSIUM 50 MG TAB PO SCH (07:28)
[2022-08-13] MEDS: MUPIROCIN 2% OINT 22 GM TUBE EXT SCH ×3 (07:29→20:52)
[2022-08-13 10:07] LABS: BUN Creatinine Ratio 26.7 (10-20); C Reactive Protein 1.11 mg/dl (0-0.5); Calcium 9.4 mg/dl (8.5-10.1); Creatinine Clr Calc Pharmacy 49.6 ml/min; Est GFR (African American) 84.2 ml/min; Est GFR (Non-African American) 72.7 ml/min; Potassium 4.1 mmol/L (3.5-5.1)
[2022-08-13] MEDS: DIGOXIN 0.125 MG TAB PO SCH (17:04)
--- NOTE | 2022-08-13 22:53 | Hospitalist Progress Note ---
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 -Physical exam is concerning for possible ischemic or embolic stroke, she is still on eliquis for afib and also on aspirin and statin therapy -Monitor on tele/pulse ox, fall precautions, q4h neuro checks, BP parameters ordered, -Will obtain MRI of the brain WO con and TTE for further assessment, am A1C and lipid panel -PT/OT consults placed -Will have dysphagia screen prior to staring a diet -Her acute covid infection could be causing some of her symptoms, unsure at this time -Patient will ultimately need rehab. will monitor her inflammatory markers and clinical response. PAtient is awaiting placement. She does not have any signs of active respiratory 19. will need to stay until hospital day 10 due to COVID. (2) Atrial fibrillation with RVR: Plan: -Patient noted to be in afib RVR on arrival to the ED -S/P 5 mg IV Lopressor in the ED and ordered 2gm IV mag, potassium is at 3.6, will also give her 40 mg PO KCL -Will video player mechanic her am dose of PO metoprolol tartrate now and continue BID dosing -Continue Dig -Monitor on tele and pulse oximetry -Eliquis held on day of admission due to risk of bleeding, this has since been continued. (3) Elevated troponin: Plan: -Initial high sensitivity trop elevated at 54, patient is without chest pain or ECG changes -Likely due to demand ischemia from her fall and afib RVR -high sensitivity trop peaked at 66 (4) COVID-19: Plan: -Found to be positive on exam -Stable on RA -Symptomatic tx for now with pulm hygiene, prn duonebs, prn robitussin, and prn O2 ordered (5) Impetigo: Plan: -Patient noted to have scabs under the BL nares, states that they were first blisters which popped -Examines like impetigo, will start TID topical mupirocin x 5 days -No signs of systemic infection at this time (6) Elevated CK: Plan: -initial elevated at 477, likely from being down for extended period of time -resolved (7) S/P CABG (coronary artery bypass graft): Plan: -Continue aspirin (8) Hypertension: Plan: -Hemodynamically stable -Continue metoprolol and losartan (9) Hypercholesterolemia: Plan: -restart atorvastatin Admission and Anticipated Discharge Date Admission Date: August 09, 2022 Subjective 87 yo female reports feeling well. She is a poor historian and does not recall speaking with me. She wants to go home. Awaiting placement. Review of Systems Review of Systems: All systems reviewed & are unremarkable except as noted in HPI & below Physical Exam Physical Exam: General:In no acute distress, stated age, well-nourished, non- toxic appearing HEENT:Normocephalic, atraumatic, no scleral icterus, pupils around round, symmetrical, and reactive to light,patient with healing scabs under the BL n orquidea not currently draining,moist mucus membranes, trachea midline, no thyromegaly Chest/Pulm:No respiratory distress, symmetrical chest expansion, clear breath sounds throughout Cardiac:tachycardic rate, irregular rhythm, no murmurs noted Abdomen:Negative for ascites and bruising, normoactive bowel sounds, soft, non- tender to palpation throughout Musculoskeletal:Symmetrical and without signs of acute trauma, upper and lower extremities with full ROM, patient noted to have difficulty with coordination with ROM of the BL upper extremities. No crepitus or tenderness to palpation of the head, cervical, thoracic, or lumbar spine Extremities:Radial, dorsalis pedis, and posterior tibial pulses are intact and symmetrical, no edema noted in the BL LE's, LLE with baseline swelling and bruising as confirmed with patient and family Skin:As described above Neuro:Alert and oriented to person, place, month, but not year Psych:No acute distress, calm and cooperative during the exam Results & Data Results & Data ([facility]) Vital Signs (Past 12 Hours) Vital Signs Temp Pulse Pulse Resp BP BP Pulse Ox 08/13/22 19:30 36.4 C L 90 18 163/84 H 98 08/13/22 17:04 96 H 08/13/22 15:00 75 08/13/22 15:11 36.3 C L 94 H 20 174/84 H 98 08/13/22 10:55 36.4 C L 90 18 128/86 97 O2 Del Method 08/13/22 19:30 Room Air 08/13/22 17:04 08/13/22 15:00 08/13/22 15:11 Room Air 08/13/22 10:55 Room Air PG Care Time/CCT Total # of Minutes Spent Total Time Spent with Patient: Total time spent is greater than 50% in coordination of care (as documented) at patient's floor/unit and/or counseling patient: Coding Level of Care Code 22251 SUB INP/OBS CARE 2MIN Diagnoses Fall W19.XXXA Encounter type: initial encounter Atrial fibrillation with RVR I48.91 Elevated troponin R77.8 COVID-19 U07.1 Impetigo L01.00 Elevated CK R74.8 S/P CABG (coronary artery bypass graft) Z95.1 Hypertension I10 Hypercholesterolemia E78.00 (1) Fall Encounter type: initial encounter Qualified Code(s): W19.XXXA - Unspecified fall, initial encounter
[2022-08-14] MEDS: LOSARTAN POTASSIUM 50 MG TAB PO SCH (09:01)
[2022-08-14] MEDS: guaiFENesin SUGAR FREE 200 MG/10 ML UDC PO PRN (09:01)
[2022-08-14] MEDS: MUPIROCIN 2% OINT 22 GM TUBE EXT SCH ×2 (09:02→14:45)
[2022-08-14] MEDS: APIXABAN 2.5 MG TAB PO SCH ×2 (09:02→21:01)
[2022-08-14] MEDS: METOPROLOL TARTRATE 50 MG TAB PO SCH ×2 (09:02→21:00)
--- NOTE | 2022-08-14 09:22 | Hospitalist Progress Note ---
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 -Physical exam is concerning for possible ischemic or embolic stroke, she is still on eliquis for afib and also on aspirin and statin therapy - - MRI of the brain 08/09 is negative for stroke -PT/OT consults recommend subacute rehabilitation -Her acute covid infection could be causing some of her symptoms, perhaps with metabolic encephalopathy, needs to be here for 10 days prior to placement Patient is awaiting placement. She does not have any signs of active respiratory sx of covid 19. will need to stay until hospital day 10 due to COVID. (2) Atrial fibrillation with RVR: Plan: -Patient noted to be in afib RVR on arrival to the ED -S/P 5 mg IV Lopressor in the ED and ordered 2gm IV mag, 40 mg PO KCL - metoprolol tartrate BID dosing -Continue Dig -Eliquis held on day of admission due to risk of bleeding, this has since been continued. (3) Elevated troponin: Plan: -Initial high sensitivity trop elevated at 54, patient is without chest pain or ECG changes -Likely due to demand ischemia from her fall and afib RVR -high sensitivity trop peaked at 66 (4) COVID-19: Plan: -Found to be positive on exam acute problem self-limited -Stable on RA -Symptomatic tx for now with pulm hygiene, prn duonebs, prn robitussin, and prn O2 ordered (5) Impetigo: Plan: -Acute problem which is resolved -Examines like impetigo, will start TID topical mupirocin x 5 days -No signs of systemic infection at this time (6) Elevated CK: (7) S/P CABG (coronary artery bypass graft): Plan: -Continue aspirin (8) Hypertension: Plan: -Hemodynamically stable -Continue metoprolol and losartan (9) Hypercholesterolemia: Plan: -restart atorvastatin Plan Spoke with daughter 08/14/2022 about decisions regarding eventual placement versus going home Admission and Anticipated Discharge Date Admission Date: August 09, 2022 Subjective 87 yo female reports feeling well. She is a poor historian and does not recall speaking about placement She wants to go home family aware of poor physical performance . Awaiting placement. Physical Exam Physical Exam: Patient has no distress or complaints she has a slight systolic ejection murmur her lungs are clear with exception of maybe mild basilar crackles Results & Data Results & Data ([facility]) Vital Signs (Past 12 Hours) Vital Signs Temp Pulse Pulse Resp BP Pulse Ox O2 Del Method 08/14/22 07:52 97.9 F 89 20 191/84 H 98 Room Air 08/14/22 03:27 97.9 F 84 18 170/87 H 98 Room Air 08/13/22 22:04 80 08/13/22 23:00 97.9 F 91 H 18 175/95 H 96 Room Air Diagnostic Findings PT evaluation reviewed with family patient has documented performance score and recommending subacute rehab PG Care Time/CCT Total # of Minutes Spent Total Time Spent with Patient: Total time spent is greater than 50% in coordination of care (as documented) at patient's floor/unit and/or counseling patient: Coding Level of Care Code 13184 SUB INP/OBS CARE 2/35MIN Diagnoses Fall W19.XXXA Encounter type: initial encounter Atrial fibrillation with RVR I48.91 Elevated troponin R77.8 COVID-19 U07.1 Impetigo L01.00 Elevated CK R74.8 S/P CABG (coronary artery bypass graft) Z95.1 Hypertension I10 Hypercholesterolemia E78.00 (1) Fall Encounter type: initial encounter Qualified Code(s): W19.XXXA - Unspecified fall, initial encounter
[2022-08-14] MEDS: ASPIRIN 81 MG ECTAB PO SCH (09:37)
[2022-08-14] MEDS: DIGOXIN 0.125 MG TAB PO SCH (16:06)
[2022-08-14] MEDS ORDERED: amLODIPine BESYLATE 5 MG TAB PO ONE (18:07)
[2022-08-14] MEDS: ATORVASTATIN 40 MG TAB PO SCH (21:01)
[2022-08-15] MEDS: METOPROLOL TARTRATE 50 MG TAB PO SCH ×2 (09:09→20:20)
[2022-08-15] MEDS: ASPIRIN 81 MG ECTAB PO SCH (09:09)
[2022-08-15] MEDS: APIXABAN 2.5 MG TAB PO SCH ×2 (09:09→20:20)
[2022-08-15] MEDS: LOSARTAN POTASSIUM 50 MG TAB PO SCH (09:09)
[2022-08-15] MEDS: guaiFENesin SUGAR FREE 200 MG/10 ML UDC PO PRN (09:09)
[2022-08-15] MEDS: amLODIPine BESYLATE 5 MG TAB PO SCH (09:09)
--- NOTE | 2022-08-15 16:10 | Hospitalist Progress Note ---
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 -Physical exam is concerning for possible ischemic or embolic stroke, she is still on eliquis for afib and also on aspirin and statin therapy - - MRI of the brain 08/09 is negative for stroke -PT/OT consults recommend subacute rehabilitation -Her acute covid infection could be causing some of her symptoms, perhaps with metabolic encephalopathy, needs to be here for 10 days prior to placement Patient is awaiting placement. She does not have any signs of active respiratory sx of covid 19. This would be 08/19/2022 will need to stay until hospital day 10 due to COVID. (2) Atrial fibrillation with RVR: Plan: Acute on chronic now stabilized -Patient noted to be in afib RVR on arrival to the ED -S/P 5 mg IV Lopressor in the ED and ordered 2gm IV mag, 40 mg PO KCL - metoprolol tartrate BID dosing -Continue Dig -Eliquis held on day of admission due to risk of bleeding, this has since been restarted and continued. (3) Elevated troponin: Plan: -Initial high sensitivity trop elevated at 54, patient is without chest pain or ECG changes -Acute self-limited demand ischemia from her fall and afib RVR -high sensitivity trop peaked at 66 (4) COVID-19: Plan: Acute issue likely associated with encephalopathy now [id number] to be positive on exam acute problem self-limited -Stable on RA -Symptomatic tx for now with pulm hygiene, prn duonebs, prn robitussin, and prn O2 ordered (5) Impetigo: Plan: -Acute problem which is resolved -Examines like impetigo, will start TID topical mupirocin x 5 days -No signs of systemic infection at this time (6) Elevated CK: (7) S/P CABG (coronary artery bypass graft): Plan: -Continue aspirin (8) Hypertension: Plan: Chronic and- stable -Continue metoprolol and losartan (9) Hypercholesterolemia: Plan: -restart atorvastatin Plan Spoke with daughter 08/14/2022 about decisions regarding eventual placement versus going home Admission and Anticipated Discharge Date Admission Date: August 09, 2022 Subjective 87 yo female reports feeling well. She seems more awake and confident today although she does have some lapses of memory when questioned directly. She wants to go home family aware of poor physical performance . Family is considering making appropriate changes for 16/02 in-house supervision. Until that is secure we are awaiting placement. This is delayed due to the requirement of being 10 days after initial COVID testing positive, patient remains without persistent COVID symptoms Physical Exam Physical Exam: patient is awake and oriented x3 however at times during conversation she appears to get confused or mixed up Her breathing is nonlabored Extremities are without edema Results & Data Results & Data ([facility]) Vital Signs (Past 12 Hours) Vital Signs Temp Pulse Pulse Resp BP BP Pulse Ox 08/15/22 09:15 08/15/22 12:02 97.9 F 74 20 147/89 H 97 08/15/22 07:30 78 08/15/22 08:07 97.7 F 86 20 154/81 H 97 O2 Del Method 08/15/22 09:15 Room Air 08/15/22 12:02 Room Air 08/15/22 07:30 08/15/22 08:07 Room Air PG Care Time/CCT Total # of Minutes Spent Total Time Spent with Patient: Total time spent is greater than 50% in coordination of care (as documented) at patient's floor/unit and/or counseling patient: Coding Level of Care Code 91850 SUB INP/OBS CARE 2/35MIN Diagnoses Fall W19.XXXA Encounter type: initial encounter Atrial fibrillation with RVR I48.91 Elevated troponin R77.8 COVID-19 U07.1 Impetigo L01.00 Elevated CK R74.8 S/P CABG (coronary artery bypass graft) Z95.1 Hypertension I10 Hypercholesterolemia E78.00 (1) Fall Encounter type: initial encounter Qualified Code(s): W19.XXXA - Unspecified fall, initial encounter
[2022-08-15] MEDS: DIGOXIN 0.125 MG TAB PO SCH (16:15)
[2022-08-15] MEDS: ATORVASTATIN 40 MG TAB PO SCH (20:20)
[2022-08-16 06:16] LABS: Creatinine Clr Calc Pharmacy 55.1 ml/min; Est GFR (African American) 92.4 ml/min; Est GFR (Non-African American) 79.8 ml/min
--- NOTE | 2022-08-16 07:44 | Hospitalist Progress Note ---
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 -Physical exam is concerning for possible ischemic or embolic stroke, she is still on eliquis for afib and also on aspirin and statin therapy - - MRI of the brain 08/09 is negative for stroke -PT/OT consults recommend subacute rehabilitation -Her acute covid infection could be causing some of her symptoms, perhaps with metabolic encephalopathy, needs to be here for 10 days prior to placement Patient is awaiting placement. She does not have any signs of active respiratory sx of covid 19. This would be 08/19/2022 will need to stay until hospital day 10 due to COVID. Patient states family may be considering having her home with 24-hour caregivers this will not be able to be arranged until next week likely on the or (2) Atrial fibrillation with RVR: Plan: Acute on chronic now stabilized -Patient noted to be in afib RVR on arrival to the ED -S/P 5 mg IV Lopressor in the ED and ordered 2gm IV mag, 40 mg PO KCL - metoprolol tartrate BID dosing -Continue Dig -Eliquis held on day of admission due to risk of bleeding, this has since been restarted and continued. (3) Elevated troponin: Plan: -Initial high sensitivity trop elevated at 54, patient is without chest pain or ECG changes -Acute self-limited demand ischemia from her fall and afib RVR -high sensitivity trop peaked at 66 (4) COVID-19: Plan: Acute issue likely associated with encephalopathy now [id number] to be positive on exam acute problem self-limited -Stable on RA -Patient remains asymptomatic (5) Impetigo: Plan: -Acute problem which is resolved -Examines like impetigo, will start TID topical mupirocin x 5 days -No signs of systemic infection at this time (6) Elevated CK: (7) S/P CABG (coronary artery bypass graft): Plan: -Continue aspirin (8) Hypertension: Plan: Chronic and- stable -Continue metoprolol and losartan (9) Hypercholesterolemia: Plan: -restart atorvastatin Plan Spoke with daughter 08/14/2022 about decisions regarding eventual placement versus going home apparently family is considering having patient come home Admission and Anticipated Discharge Date Admission Date: August 09, 2022 Subjective Patient awake alert appropriate now states her daughter is going to move in with her but needs some time to get her home in good condition has no focal complaints or problems he is seemingly getting boarded she is on respiratory isolation Physical Exam Physical Exam: Patient awake alert and appropriate x3 pulmonary examination is with decreased basilar crackles otherwise clear Despite being awake and alert and oriented she does at times seem to get mixed up in casual conversation Results & Data Results & Data ([facility]) Vital Signs (Past 12 Hours) Vital Signs Temp Pulse Pulse Resp BP BP Pulse Ox 08/16/22 07:30 87 08/16/22 03:40 97.5 F L 80 18 166/91 H 96 08/15/22 23:14 97.9 F 76 18 143/89 H 97 08/15/22 19:53 98.1 F 61 20 164/82 H 97 O2 Del Method 08/16/22 07:30 08/16/22 03:40 Room Air 08/15/22 23:14 Room Air 08/15/22 19:53 Room Air PG Care Time/CCT Total # of Minutes Spent Total Time Spent with Patient: Total time spent is greater than 50% in coordination of care (as documented) at patient's floor/unit and/or counseling patient: Coding Level of Care Code 28063 SUB INP/OBS CARE 08/20MIN Diagnoses Fall W19.XXXA Encounter type: initial encounter Atrial fibrillation with RVR I48.91 Elevated troponin R77.8 COVID-19 U07.1 Impetigo L01.00 Elevated CK R74.8 S/P CABG (coronary artery bypass graft) Z95.1 Hypertension I10 Hypercholesterolemia E78.00 (1) Fall Encounter type: initial encounter Qualified Code(s): W19.XXXA - Unspecified fall, initial encounter
[2022-08-16] MEDS: amLODIPine BESYLATE 5 MG TAB PO SCH (08:11)
[2022-08-16] MEDS: LOSARTAN POTASSIUM 50 MG TAB PO SCH (08:11)
[2022-08-16] MEDS: METOPROLOL TARTRATE 50 MG TAB PO SCH ×2 (08:11→20:18)
[2022-08-16] MEDS: ASPIRIN 81 MG ECTAB PO SCH (08:11)
[2022-08-16] MEDS: APIXABAN 2.5 MG TAB PO SCH ×2 (08:12→20:18)
[2022-08-16] MEDS: DIGOXIN 0.125 MG TAB PO SCH (16:26)
[2022-08-16] MEDS: ATORVASTATIN 40 MG TAB PO SCH (20:18)
--- NOTE | 2022-08-17 08:08 | Hospitalist Progress Note ---
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 -Physical exam is concerning for possible ischemic or embolic stroke, she is still on eliquis for afib and also on aspirin and statin therapy - - MRI of the brain 08/09 is negative for stroke -PT/OT consults recommend subacute rehabilitation -Her acute covid infection could be causing some of her symptoms, perhaps with metabolic encephalopathy, needs to be here for 10 days prior to placement Patient is awaiting placement. She does not have any signs of active respiratory sx of covid 19. This would be 08/19/2022 will need to stay until hospital day 10 due to COVID. Patient actively improving with physical therapy would recommend home health with therapy if able Patient states family may be considering having her home with 24-hour caregivers this will not be able to be arranged until next week likely on the or (2) Atrial fibrillation with RVR: Plan: Acute on chronic now stabilized -Patient noted to be in afib RVR on arrival to the ED -S/P 5 mg IV Lopressor in the ED and ordered 2gm IV mag, 40 mg PO KCL - metoprolol tartrate BID dosing -Continue Dig -Eliquis held on day of admission due to risk of bleeding, this has since been restarted and continued. (3) Elevated troponin: Plan: -Initial high sensitivity trop elevated at 54, patient is without chest pain or ECG changes -Acute self-limited demand ischemia from her fall and afib RVR -high sensitivity trop peaked at 66 (4) COVID-19: Plan: Acute issue likely associated with encephalopathy now [id number] to be positive on exam acute problem self-limited -Stable on RA -Patient remains asymptomatic (5) Impetigo: Plan: -Acute problem which is resolved -Examines like impetigo, will start TID topical mupirocin x 5 days -No signs of systemic infection at this time (6) Elevated CK: (7) S/P CABG (coronary artery bypass graft): Plan: -Continue aspirin (8) Hypertension: Plan: Chronic and- stable -Continue metoprolol and losartan (9) Hypercholesterolemia: Plan: -restart atorvastatin Plan Spoke with daughter 08/14/2022 about decisions regarding eventual placement versus going home apparently family is considering having patient come home Admission and Anticipated Discharge Date Admission Date: August 09, 2022 Subjective pt was sleeping on my arrival awoke and was groggy, still looking to go home with family support Physical Exam Physical Exam: Patient breathing comfortably without distress No signs of active COVID at this time Weakness is improving With alert oriented conversational he has some confusion Results & Data Results & Data ([facility]) Vital Signs (Past 12 Hours) Vital Signs Temp Pulse Pulse Resp BP Pulse Ox O2 Del Method 08/17/22 07:06 68 08/17/22 06:54 98.2 F 95 H 18 160/98 H 98 Room Air 08/17/22 03:02 97.7 F 97 H 18 156/83 H 97 Room Air 08/17/22 00:22 67 08/16/22 22:50 98.1 F 74 18 164/82 H 99 Room Air PG Care Time/CCT Total # of Minutes Spent Total Time Spent with Patient: Total time spent is greater than 50% in coordination of care (as documented) at patient's floor/unit and/or counseling patient: Coding Level of Care Code 05879 SUB INP/OBS CARE 08/20MIN Diagnoses Fall W19.XXXA Encounter type: initial encounter Atrial fibrillation with RVR I48.91 Elevated troponin R77.8 COVID-19 U07.1 Impetigo L01.00 Elevated CK R74.8 S/P CABG (coronary artery bypass graft) Z95.1 Hypertension I10 Hypercholesterolemia E78.00 (1) Fall Encounter type: initial encounter Qualified Code(s): W19.XXXA - Unspecified fall, initial encounter
[2022-08-17] MEDS: APIXABAN 2.5 MG TAB PO SCH ×2 (08:25→20:27)
[2022-08-17] MEDS: ASPIRIN 81 MG ECTAB PO SCH (08:25)
[2022-08-17] MEDS: METOPROLOL TARTRATE 50 MG TAB PO SCH ×2 (08:25→20:27)
[2022-08-17] MEDS: amLODIPine BESYLATE 5 MG TAB PO SCH (08:26)
[2022-08-17] MEDS: LOSARTAN POTASSIUM 50 MG TAB PO SCH (08:26)
[2022-08-17] MEDS: DIGOXIN 0.125 MG TAB PO SCH (16:03)
[2022-08-17] MEDS: ATORVASTATIN 40 MG TAB PO SCH (20:27)
--- NOTE | 2022-08-18 08:30 | Hospitalist Progress Note ---
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 -Physical exam is concerning for possible ischemic or embolic stroke, she is still on eliquis for afib and also on aspirin and statin therapy - - MRI of the brain 08/09 is negative for stroke -PT/OT consults recommend subacute rehabilitation, however pt is improving and family will have 16/02 care -Her acute covid infection could be causing some of her symptoms, perhaps with metabolic encephalopathy, needs to be here for 10 days prior to placement Patient actively improving with physical therapy would recommend home health with therapy if able Patient states family decided on having her home with 24-hour caregivers this will not be able to be arranged until the (2) Atrial fibrillation with RVR: Plan: Acute on chronic now stabilized -Patient noted to be in afib RVR on arrival to the ED -S/P 5 mg IV Lopressor in the ED and ordered 2gm IV mag, 40 mg PO KCL - metoprolol tartrate BID dosing -Continue Dig -Eliquis held on day of admission due to risk of bleeding, this has since been restarted and continued. (3) Elevated troponin: Plan: -Initial high sensitivity trop elevated at 54, patient is without chest pain or ECG changes -Acute self-limited demand ischemia from her fall and afib RVR -high sensitivity trop peaked at 66 (4) COVID-19: Plan: Acute issue likely associated with encephalopathy now [id number] to be positive on exam acute problem self-limited -Stable on RA -Patient remains asymptomatic (5) Impetigo: Plan: -Acute problem which is resolved -Examines like impetigo, will start TID topical mupirocin x 5 days -No signs of systemic infection at this time (6) Elevated CK: (7) S/P CABG (coronary artery bypass graft): Plan: -Continue aspirin Chronic and stable (8) Hypertension: Plan: Chronic and- stable -Continue metoprolol and losartan (9) Hypercholesterolemia: Plan: -restart atorvastatin chronic and stable Plan Spoke with daughter 08/18/22 the family decided to take patient home with 24/7 home caregivers. Due to the need to physically change some aspects of her home living situation this cannot be done till 21 August Admission and Anticipated Discharge Date Admission Date: August 09, 2022 Subjective pt was sleeping on my arrival awoke and was groggy, still looking to go home with family support, called daughter shooting for 08/21 Physical Exam Physical Exam: Patient breathing comfortably without distress No signs of active COVID at this time Weakness is improving With alert oriented conversational he has some confusion Results & Data Results & Data ([facility]) Vital Signs (Past 12 Hours) Vital Signs Temp Pulse Pulse Resp BP Pulse Ox O2 Del Method 08/18/22 07:53 97.9 F 90 16 115/76 96 Room Air 08/18/22 05:58 78 08/18/22 03:29 97.7 F 83 16 168/80 H 96 Room Air 08/17/22 23:00 98.1 F 79 16 169/80 H 96 Room Air 08/17/22 23:08 72 PG Care Time/CCT Total # of Minutes Spent Total Time Spent with Patient: Total time spent is greater than 50% in coordination of care (as documented) at patient's floor/unit and/or counseling patient: Coding Level of Care Code 97531 SUB INP/OBS CARE 08/20MIN Diagnoses Fall W19.XXXA Encounter type: initial encounter Atrial fibrillation with RVR I48.91 Elevated troponin R77.8 COVID-19 U07.1 Impetigo L01.00 Elevated CK R74.8 S/P CABG (coronary artery bypass graft) Z95.1 Hypertension I10 Hypercholesterolemia E78.00 (1) Fall Encounter type: initial encounter Qualified Code(s): W19.XXXA - Unspecified fall, initial encounter
[2022-08-18] MEDS: METOPROLOL TARTRATE 50 MG TAB PO SCH ×2 (09:09→20:31)
[2022-08-18] MEDS: ASPIRIN 81 MG ECTAB PO SCH (09:09)
[2022-08-18] MEDS: amLODIPine BESYLATE 5 MG TAB PO SCH (09:09)
[2022-08-18] MEDS: LOSARTAN POTASSIUM 50 MG TAB PO SCH (09:09)
[2022-08-18] MEDS: APIXABAN 2.5 MG TAB PO SCH ×2 (09:10→20:30)
[2022-08-18 10:23] LABS: Hematocrit (blood only) 43.1 % (34.1-44.9); Hemoglobin 14.3 g/dl (12.0-16.0); Mean Corpuscular Hemoglobin 28.9 pg (25.0-34.0); Mean Corpuscular Hgb Conc 33.2 g/dL (32.0-36.0); Mean Corpuscular Volume 87.1 fL (80.0-100.0); Mean Platelet Volume 11.2 fL (9.4-12.3); Platelet Count 224 K/uL (130-400); RDW Standard Deviation 50.4 fL (36.4-46.3); Red Blood Count 4.95 M/uL (3.93-5.22); White Blood Count 7.17 K/ul (4.8-10.8)
[2022-08-18 11:06] LABS: BUN Creatinine Ratio 28.7 (10-20); Calcium 9.6 mg/dl (8.5-10.1); Creatinine Clr Calc Pharmacy 42.3 ml/min; Est GFR (African American) 70.4 ml/min; Est GFR (Non-African American) 60.7 ml/min; Potassium 3.8 mmol/L (3.5-5.1)
[2022-08-18] MEDS: DIGOXIN 0.125 MG TAB PO SCH (16:18)
[2022-08-18] MEDS: ATORVASTATIN 40 MG TAB PO SCH (20:31)
[2022-08-19] MEDS: METOPROLOL TARTRATE 50 MG TAB PO SCH ×2 (08:03→20:16)
[2022-08-19] MEDS: ASPIRIN 81 MG ECTAB PO SCH (08:04)
[2022-08-19] MEDS: amLODIPine BESYLATE 5 MG TAB PO SCH (08:04)
[2022-08-19] MEDS: APIXABAN 2.5 MG TAB PO SCH ×2 (08:04→20:16)
[2022-08-19] MEDS: LOSARTAN POTASSIUM 50 MG TAB PO SCH (08:04)
[2022-08-19 08:57] LABS: Creatinine Clr Calc Pharmacy 48.3 ml/min; Est GFR (African American) 82.9 ml/min; Est GFR (Non-African American) 71.5 ml/min
--- NOTE | 2022-08-19 14:41 | Hospitalist Progress Note ---
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 -Physical exam is concerning for possible ischemic or embolic stroke, she is still on eliquis for afib and also on aspirin and statin therapy - - MRI of the brain 08/09 is negative for stroke -PT/OT consults initially recommend subacute rehabilitation, however pt is improving and family will have 16/02 care anticipate discharge 08/21 -Her acute covid infection could be causing some of her symptoms, perhaps with metabolic encephalopathy, (2) Atrial fibrillation with RVR: Plan: Acute on chronic now stabilized -Patient noted to be in afib RVR on arrival to the ED -S/P 5 mg IV Lopressor in the ED and ordered 2gm IV mag, 40 mg PO KCL - metoprolol tartrate BID dosing -Continue Dig -Eliquis held on day of admission due to risk of bleeding, this has since been restarted and continued. (3) Elevated troponin: Plan: -Initial high sensitivity trop elevated at 54, patient is without chest pain or ECG changes -Acute self-limited demand ischemia from her fall and afib RVR -high sensitivity trop peaked at 66 (4) COVID-19: Plan: Acute issue likely associated with encephalopathy now [id number] to be positive on exam acute problem self-limited -Stable on RA -Patient remains asymptomatic (5) Impetigo: Plan: -Acute problem which is resolved -Examines like impetigo, will start TID topical mupirocin x 5 days -No signs of systemic infection at this time (6) Elevated CK: (7) S/P CABG (coronary artery bypass graft): Plan: -Continue aspirin Chronic and stable (8) Hypertension: Plan: Chronic and- stable -Continue metoprolol and losartan (9) Hypercholesterolemia: Plan: -restart atorvastatin chronic and stable Plan Spoke with daughter 08/18/22 the family decided to take patient home with 24/7 home caregivers. Due to the need to physically change some aspects of her home living situation this cannot be done till 21 August Admission and Anticipated Discharge Date Admission Date: August 09, 2022 Subjective Patient awake alert in the room making her bed anxious to return to home Physical Exam Physical Exam: Awake alert appropriate Lung exam is clear Results & Data Results & Data ([facility]) Vital Signs (Past 12 Hours) Vital Signs Temp Pulse Pulse Resp BP Pulse Ox O2 Del Method 08/19/22 10:43 97.7 F 60 16 107/71 98 Room Air 08/19/22 08:02 97.7 F 76 14 110/75 97 Room Air 08/19/22 06:02 74 08/19/22 04:00 97.9 F 77 18 141/84 H 96 Room Air PG Care Time/CCT Total # of Minutes Spent Total Time Spent with Patient: Total time spent is greater than 50% in coordination of care (as documented) at patient's floor/unit and/or counseling patient: Coding Level of Care Code 91394 SUB INP/OBS CARE 08/20MIN Diagnoses Fall W19.XXXA Encounter type: initial encounter Atrial fibrillation with RVR I48.91 Elevated troponin R77.8 COVID-19 U07.1 Impetigo L01.00 Elevated CK R74.8 S/P CABG (coronary artery bypass graft) Z95.1 Hypertension I10 Hypercholesterolemia E78.00 (1) Fall Encounter type: initial encounter Qualified Code(s): W19.XXXA - Unspecified fall, initial encounter
[2022-08-19] MEDS: DIGOXIN 0.125 MG TAB PO SCH (15:48)
[2022-08-19] MEDS: ATORVASTATIN 40 MG TAB PO SCH (20:16)
[2022-08-20 07:23] LABS: Hematocrit (blood only) 42.8 % (34.1-44.9); Mean Corpuscular Hemoglobin 28.4 pg (25.0-34.0); Mean Corpuscular Hgb Conc 32.7 g/dL (32.0-36.0); Mean Corpuscular Volume 86.8 fL (80.0-100.0); Mean Platelet Volume 11.2 fL (9.4-12.3); Platelet Count 181 K/uL (130-400); RDW Coefficient of Variation 16.4 % (11.5-14.5); RDW Standard Deviation 51.3 fL (36.4-46.3); Red Blood Count 4.93 M/uL (3.93-5.22); White Blood Count 7.04 K/ul (4.8-10.8)
[2022-08-20 07:50] LABS: BUN Creatinine Ratio 24.5 (10-20); Calcium 9.3 mg/dl (8.5-10.1); Est GFR (African American) 58.1 ml/min; Est GFR (Non-African American) 50.1 ml/min; Potassium 3.9 mmol/L (3.5-5.1)
[2022-08-20] MEDS: amLODIPine BESYLATE 5 MG TAB PO SCH (08:04)
[2022-08-20] MEDS: METOPROLOL TARTRATE 50 MG TAB PO SCH ×2 (08:04→21:16)
[2022-08-20] MEDS: ASPIRIN 81 MG ECTAB PO SCH (08:04)
[2022-08-20] MEDS: APIXABAN 2.5 MG TAB PO SCH ×2 (08:04→21:16)
[2022-08-20] MEDS: LOSARTAN POTASSIUM 50 MG TAB PO SCH (08:05)
--- NOTE | 2022-08-20 16:00 | Hospitalist Progress Note ---
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 -Physical exam is concerning for possible ischemic or embolic stroke, she is still on eliquis for afib and also on aspirin and statin therapy - - MRI of the brain 08/09 is negative for stroke -PT/OT consults initially recommend subacute rehabilitation, however pt is improving and family will have 16/02 care anticipate discharge 08/21 -Her acute covid infection could be causing some of her symptoms, perhaps with metabolic encephalopathy, both are since resolved and stable (2) Atrial fibrillation with RVR: Plan: Acute on chronic now stabilized -Patient noted to be in afib RVR on arrival to the ED -S/P 5 mg IV Lopressor in the ED and ordered 2gm IV mag, 40 mg PO KCL - metoprolol tartrate BID dosing -Continue Dig -Eliquis held on day of admission due to risk of bleeding, this has since been restarted and continued. (3) Elevated troponin: Plan: -Initial high sensitivity trop elevated at 54, patient is without chest pain or ECG changes -Acute self-limited demand ischemia from her fall and afib RVR -high sensitivity trop peaked at 66 (4) COVID-19: Plan: Acute issue likely associated with encephalopathy now [id number]-[id number] to be positive on exam acute problem self-limited -Stable on RA -Issue was resolved and is stable (5) Impetigo: Plan: -Acute problem which is resolved -Examines like impetigo, will start TID topical mupirocin x 5 days -No signs of systemic infection at this time (6) Elevated CK: (7) S/P CABG (coronary artery bypass graft): Plan: -Continue aspirin Chronic and stable (8) Hypertension: Plan: Chronic and- stable -Continue metoprolol and losartan (9) Hypercholesterolemia: Plan: -restart atorvastatin chronic and stable Plan Spoke with daughter 08/18/22 the family decided to take patient home with 16/02 home caregivers. Due to the need to physically change some aspects of her home living situation this cannot be done till 21 August Admission and Anticipated Discharge Date Admission Date: August 09, 2022 Subjective Patient awake alert in the room making her bed anxious to return to home reports that family is arranging internet and will have family in place for home 08/21/22 Physical Exam Physical Exam: Awake alert appropriate lungs are clear unlabored Results & Data Results & Data ([facility]) Vital Signs (Past 12 Hours) Vital Signs Temp Pulse Pulse Resp BP Pulse Ox O2 Del Method 08/20/22 06:39 97.9 F 76 20 177/53 H 96 Room Air 08/20/22 03:00 98.1 F 75 20 144/69 H 94 Room Air 08/19/22 21:55 85 08/19/22 22:00 98.2 F 67 20 135/71 95 Room Air PG Care Time/CCT Total # of Minutes Spent Total Time Spent with Patient: Total time spent is greater than 50% in coordination of care (as documented) at patient's floor/unit and/or counseling patient: Coding Level of Care Code 74827 SUB INP/OBS CARE 08/20MIN Diagnoses Fall W19.XXXA Encounter type: initial encounter Atrial fibrillation with RVR I48.91 Elevated troponin R77.8 COVID-19 U07.1 Impetigo L01.00 Elevated CK R74.8 S/P CABG (coronary artery bypass graft) Z95.1 Hypertension I10 Hypercholesterolemia E78.00 (1) Fall Encounter type: initial encounter Qualified Code(s): W19.XXXA - Unspecified fall, initial encounter
[2022-08-20] MEDS: DIGOXIN 0.125 MG TAB PO SCH (16:20)
[2022-08-20] MEDS: ATORVASTATIN 40 MG TAB PO SCH (21:16)
[2022-08-21] MEDS: ASPIRIN 81 MG ECTAB PO SCH (08:26)
[2022-08-21] MEDS: LOSARTAN POTASSIUM 50 MG TAB PO SCH (08:26)
[2022-08-21] MEDS: APIXABAN 2.5 MG TAB PO SCH (08:26)
[2022-08-21] MEDS: METOPROLOL TARTRATE 50 MG TAB PO SCH (08:26)
[2022-08-21] MEDS: amLODIPine BESYLATE 5 MG TAB PO SCH (08:27)
--- NOTE | 2022-08-22 15:54 | Discharge Summary ---
Date of Service August 21, 2022 Principal Diagnosis Fall Discharge Exam General:In no acute distress, stated age, well-nourished, non-toxic appearing HEENT:Normocephalic, atraumatic, no scleral icterus, pupils around round, symmetrical, and reactive to light,patient with healing scabs under the BL nares not currently draining,moist mucus membranes, trachea midline, no thyromegaly Chest/Pulm:No respiratory distress, symmetrical chest expansion, clear breath sounds throughout Cardiac:tachycardic rate, irregular rhythm, no murmurs noted Abdomen:Negative for ascites and bruising, normoactive bowel sounds, soft, non- tender to palpation throughout Musculoskeletal:Symmetrical and without signs of acute trauma, upper and lower extremities with full ROM, patient noted to have difficulty with coordination with ROM of the BL upper extremities. No crepitus or tenderness to palpation of the head, cervical, thoracic, or lumbar spine Extremities:Radial, dorsalis pedis, and posterior tibial pulses are intact and symmetrical, no edema noted in the BL LE's, LLE with baseline swelling and bruising as confirmed with patient and family Skin:As described above Neuro:Alert and oriented to person, place, month, but not year Psych:No acute distress, calm and cooperative during the exam Discharge Data Allergies Allergy/AdvReac Type Severity Reaction Status Date / Time No Known Allergies Allergy Verified 03/26/22 10:00 Consultations 08/09/22 14:56 ED Decision to Admit Stat 08/10/22 10:32 Consult Neurology Routine Ordered Studies 08/09/22 11:06 CT angio head w con Stat CT angio neck with con Stat CT head/brain wo con Stat 08/09/22 15:43 MRI Brain [MR brain wo con] Urgent Hospital Course (1) Fall: -Patient was found down in the morning on the day of admission by family, unsure of her exact last known well time but it was at least out of the window for thrombolytic therapy likely acute encephalopathy with systemic effect and weakness from covid infection as stroke has been ruled out -CT of the head and CTA of the head/neck without acute findings but did show " 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 -Physical exam is concerning for possible ischemic or embolic stroke, she is still on eliquis for afib and also on aspirin and statin therapy - - MRI of the brain 08/09 is negative for stroke -PT/OT consults initially recommend subacute rehabilitation, however pt is improving and family will have 16/02 care and will discharge today (08/21) -Her acute covid infection could be causing some of her symptoms, perhaps with metabolic encephalopathy, both are since resolved and stable (2) Atrial fibrillation with RVR: Acute on chronic now stabilized -Patient noted to be in afib RVR on arrival to the ED -S/P 5 mg IV Lopressor in the ED and ordered 2gm IV mag, 40 mg PO KCL - metoprolol tartrate BID dosing -Continue Dig -Eliquis held on day of admission due to risk of bleeding, this has since been restarted and continued. (3) Elevated troponin: -Initial high sensitivity trop elevated at 54, patient is without chest pain or ECG changes -Acute self-limited demand ischemia from her fall and afib RVR -high sensitivity trop peaked at 66 (4) COVID-19: Acute issue likely associated with encephalopathy now [id number] to be positive on exam acute problem self-limited -Stable on RA -Issue was resolved and is stable (5) Impetigo: -Acute problem which is resolved -Examines like impetigo, will start TID topical mupirocin x 5 days -No signs of systemic infection at this time (6) Elevated CK: (7) S/P CABG (coronary artery bypass graft): -Continue aspirin Chronic and stable (8) Hypertension: Chronic and- stable -Continue metoprolol and losartan (9) Hypercholesterolemia: -restart atorvastatin chronic and stable Plan Spoke with daughter 08/18/22 the family decided to take patient home with 16/02 home caregivers. Due to the need to physically change some aspects of her home living situation this cannot be done till 21 August Total Time Total Time Spent Total Time Spent (In Minutes): 32 Discharge Plan Discharge Items Patient Disposition: Home - Home Health Services Reason For Visit: STROKE LIKE SYMPTOMS Discharge Diagnosis: Covid Activity: Resume your previous activity Activity Comment: recommend discharged with Home Health Non-emergency contact: Primary Care Provider Call non-emergency contact if: you have any medication questions Follow-up/Referrals: Berhane Ballard MD [Primary Care Provider] - 08/28/22 11:00 am Diet: Regular Addtl Attending Provider Instructions: You have been hospitalized for an acute medical problem: weakness after COVID. During your stay at [facility], we have made an effort to correct the problem that brought you to the hospital while keeping you as comfortable as possible. Your discharge instructions will include directions for any medications you should take after leaving the hospital. Please make sure you see your Primary Care Provider as part of your follow up plan. Pending Studies at Discharge: No Stand-Alone Forms: My [facility], Smoking Cessation Medications and DC Order Prescriptions: New amlodipine [Norvasc] 5 mg Tablet 5 mg PO QAM Qty: 30 0RF Continued atorvastatin 40 mg tablet 40 mg PO HS Qty: 90 3RF metoprolol tartrate 50 mg tablet 50 mg PO BID Qty: 180 3RF Eliquis 2.5 mg tablet 2.5 mg PO BID Qty: 180 3RF losartan 100 mg tablet 100 mg PO DAILY Qty: 14 1RF aspirin 81 mg tablet,delayed release (DR/EC) 81 mg PO DAILY multivitamin [Daily Multi-Vitamin] Tablet 1 tab PO DAILY calcium carbonate-vitamin D3 [Calcium 600 + D(3)] 600 mg(1,500mg) -400 unit Tablet 1 tab PO DAILY [id number] [krill oil] 1,383-621-50-80 mg Capsule 1 cap PO DAILY Changed digoxin 125 mcg (0.125 mg) tablet 125 mcg PO 1600 Qty: 90 3RF Discharge Orders: Discharge Order (Routine); Ordered 08/21/22 Ordered By: Tevin Marmolejo/Other Patient Handouts: Stroke and Heart Disease, Stroke: Resources and Support, Fall Prevention Assessing Risk, Preventing Falls: Staying Active, Type 2 Diabetes Admission Data Admit Date/Time: 08/09/22 15:09 Attending Provider: Tevin French Admit Provider: Miguel Kerr Primary Care Provider: Berhane Ballard Other Providers: Miguel Kerr ; Joaquín Casas ; [facility] ; [facility] ; [place] Other Interventions: Discharge Summary Assessment (RN) Last Done: 08/21/22 13:37 Coding Level of Care Code HOSP INP/OBS DISCH >30 MIN Diagnoses Fall W19.XXXA Encounter type: initial encounter Atrial fibrillation with RVR I48.91 Elevated troponin R77.8 COVID-19 U07.1 Impetigo L01.00 Elevated CK R74.8 S/P CABG (coronary artery bypass graft) Z95.1 Hypertension I10 Hypercholesterolemia E78.00
== END 2022-08-21 14:30 | disposition home health service (06) | DRG 177 ==
LOC: ED 10:45 → SUATTDRO 15:09 → 2W 15:09
DX: Z79.82 Long term (current) use of aspirin; I24.8 Other forms of acute ischemic heart disease; I48.0 Paroxysmal atrial fibrillation; L01.00 Impetigo, unspecified; I10 Essential (primary) hypertension; G93.41 Metabolic encephalopathy; Z79.899 Other long term (current) drug therapy; Z95.1 Presence of aortocoronary bypass graft; I25.10 Atherosclerotic heart disease of native coronary artery without angina pectoris; M62.82 Rhabdomyolysis; E78.00 Pure hypercholesterolemia, unspecified; Z66 Do not resuscitate; Z91.81 History of falling; W19.XXXA Unspecified fall, initial encounter; U07.1 COVID-19